=== PATIENT | male | born 1955 | race Caucasian/White ===

== ENCOUNTER → 2019-04-28 07:57 | Outpatient (REF) | payer OTHER, SELFPAY | LOC: ANHLAB 07:57 | PROVIDERS: PCP Internal Medicine; Visit Provider Nurse Practitioner Family | DX: C44.519 Basal cell carcinoma of skin of other part of trunk (principal) | CPT/HCPCS: 88305; 88331 ==

== ENCOUNTER 2020-04-17 12:08 | Outpatient (CLI) | payer OTHER, SELFPAY | END 2020-04-17 12:09 | disposition home or self-care (01) | LOC: ANHCOVIDVC 12:08 | PROVIDERS: PCP Internal Medicine; Visit Provider Internal Medicine | DX: Z23 Encounter for immunization (principal) | CPT/HCPCS: 0001A; 91300 ==

== ENCOUNTER 2020-05-08 11:45 | Outpatient (CLI) | payer OTHER, SELFPAY | END 2020-05-08 11:46 | disposition home or self-care (01) | LOC: ANHCOVIDVC 11:45 | PROVIDERS: PCP Internal Medicine; Visit Provider Internal Medicine | DX: Z23 Encounter for immunization (principal) | CPT/HCPCS: 0002A; 91300 ==

== ENCOUNTER 2021-08-23 07:46 | Outpatient (CLI) | payer OTHER, SELFPAY ==
--- NOTE | 2021-09-18 00:28 | WPDSLEEPSTUD ---
Sleep Study Date of Study: 08/23/21 Ordering Provider: Sarah Madrigal MD Interpreting Physician: Bobbi Villarreal DO Sleep Study Type: Split Polysomnogram Height: 1.75 m Weight: 122.47 kg Body Mass Index: 39.9 Neck Circumference (inches): 19 [place]: 17 Reason for Sleep Study The patient was diagnosed with KARL in 2002. He was prescribed CPAP and supplemental oxygen. He stopped using both within 3 months. He had a repeat study in 2016. 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 the patient occasionally awakens from sleep short of breath. He denies awakening at night with heartburn, belching or cough. He frequently snores loud enough that others complain. He occasionally has trouble sleeping when he has a cold. He occasionally wakes up gasping for air throughout the night. He frequently has breathing problems at night observed by himself or others. He rarely sweats excessively at night. He rarely has heart palpitations or irregular heartbeats during the night. He occasionally falls asleep during the day but rarely falls asleep while driving. He denies sleep paralysis and cataplexy. He occasionally has trouble at school or work due to sleepiness. He constantly experiences vivid dreamlike scenes upon awakening or falling asleep. He frequently feels afraid of going to sleep. He constantly has nightmares. He constantly remembers his dreams. He occasionally has thoughts racing through his mind. He occasionally feels sad or depressed. He denies having anxiety. He denies having muscular tension. He frequently notices parts of his body jerk. He frequently kicks during the night. He frequently has crawling and aching feelings in his legs and occasionally has leg pain during the night. He denies grinding his teeth during sleep and awakening with morning jaw pain. He is occasionally bothered by pain during the day and occasionally awakened by pain during the night. He constantly wakes up feeling stiff in the morning. He rarely wakes up with sore achy muscles. He occasionally wakes up with pain in the neck, spine and other joints. He goes to bed at midnight on weekdays and at 1:00 a.m. on the weekends. That amount of time it takes for him to fall asleep is variable. He wakes up 6-12 times throughout the night to urinate. The amount of time it takes him to fall back asleep is variable. He wakes up between 6-8 a.m. on weekdays and between 7-10 a.m. on the weekends. He typically gets 5 hours of sleep per night. He does not stay in bed very long after waking up the morning. He currently lives with his , son and his son's girlfriend. He does not consume any caffeinated beverages within 2 hours of bedtime. He does not engage in physical exercise before bedtime. He will read and watch television before falling asleep. He will take naps in the afternoon or the evening and they are refreshing. He drinks 3 caffeinated beverages per day. He will occasionally drink alcohol on weekends. He denies tobacco and recreational drug use. [facility] Past Medical History Medical History (Updated 09/18/21 @ 18:10 by Bobbi Villarreal DO) Chronic atrial fibrillation Chronic CHF Chronic pain Depression Essential (primary) hypertension Gout H/O atrial fibrillation without current medication History of arthritis History of gout History of hypertension History of kidney stones Sleep apnea in adult Family History Family History Mother Chronic kidney disease Father Coronary artery disease Coronary artery disease involving bypass graft of transplanted heart Social History Social History S
[2021-09-18 18:12] VITALS: BMI 39.9
== END 2021-08-24 06:41 | disposition home or self-care (01) ==
LOC: ANHCSM 07:47
PROVIDERS: PCP Family Medicine; Visit Provider Internal Medicine Critical Care Medicine
DX: G47.39 Other sleep apnea (principal); I48.92 Unspecified atrial flutter
CPT/HCPCS: 95811

== ENCOUNTER 2022-04-30 08:00 | Outpatient (NON) | payer OTHER, SELFPAY | END 2022-04-30 08:01 | disposition home or self-care (01) | PROVIDERS: PCP Family Medicine; Visit Provider Nurse Practitioner | DX: C44.41 Basal cell carcinoma of skin of scalp and neck (principal) | CPT/HCPCS: 88305 ==

== ENCOUNTER 2022-05-27 13:35 | Outpatient (NON) | payer OTHER, SELFPAY | END 2022-05-27 13:36 | disposition home or self-care (01) | LOC: ANHLAB 13:35 | PROVIDERS: PCP Family Medicine; Visit Provider Nurse Practitioner | DX: C44.41 Basal cell carcinoma of skin of scalp and neck (principal) | CPT/HCPCS: 88305; 88331 ==

== ENCOUNTER 2022-10-13 22:45 | Inpatient (IN) | payer OTHER, SELFPAY ==
--- NOTE | ~2022-10-13 | XR_ITS ---
EXAMINATION: XR foot LT min 3V DATE: 10/14/2022 01:47 INDICATION: Left foot cellulitis. TECHNIQUE: 3 views of left foot were obtained. COMPARISON: None. FINDINGS: Bone alignment is normal. No fracture. There is mild osteoarthritis of first metatarsophala ngeal joint and some of the interphalangeal joints and midfoot joints. There is an enthesophyte at po sterior aspect of calcaneal tuberosity. There is an 8 mm radiopaque foreign body plantar to second pr oximal phalanx. IMPRESSION: 1. 8 mm radiopaque foreign body plantar to second proximal phalanx. 2. No evidence of osteomyelitis. Reviewed, dictated and finalized at location E.
--- NOTE | ~2022-10-13 | XR_ITS ---
EXAMINATION: XR chest 1V portable Exam Date/Time: 10/16/2022 14:00 CDT HISTORY: shortness of breath, HX CHF Comparison: 10/14/2022. RESULT: Lines, tubes, and devices: None. Lungs and pleura: Mild diffuse reticular opacities with indistinct vessels. Patchy bibasilar subsegm ental airspace disease and groundglass opacities, worse in the left lower lung. Cardiomediastinal silhouette: Stable. Other: No acute osseous or upper abdominal finding. IMPRESSION: Pulmonary opacities may reflect moderate pulmonary edema versus mild edema with bibasilar pulmonary i nfection. Reviewed, dictated and finalized at location K. IMPRESSION: Pulmonary opacities may reflect moderate pulmonary edema versus mild edema with bibasilar pulmonary infection.
--- NOTE | ~2022-10-13 | XR_ITS ---
EXAM: XR toe 2nd LT min 2V DATE: 10/21/2022 21:48 HISTORY: rule out broken toe Lt 2nd toe; stubbed toe this P.M. . COMPARISON: 10/14/2022. FINDINGS: Decreased mineralization. No fracture or dislocation. No lytic or blastic lesion. Scattere d degenerative changes. No erosion or periosteal change. Soft tissues within normal limits. IMPRESSION: No acute osseous finding in the left second toe. Reviewed, dictated and finalized at location K.
--- NOTE | ~2022-10-13 | XR_ITS ---
EXAMINATION: XR chest 1V portable INDICATION: Chest pain TECHNIQUE: Portable AP chest at 0100 hours COMPARISON: None available FINDINGS: The lungs are free of acute opacities. No pleural effusion or pneumothorax. Cardiomegaly is noted. IMPRESSION: 1. Cardiomegaly. Reviewed, dictated and finalized at location A. IMPRESSION: 1. Cardiomegaly.
--- NOTE | ~2022-10-13 | US_ITS ---
EXAMINATION: US renal BI DATE: 10/17/2022 14:36 INDICATION: Acute kidney injury TECHNIQUE: Multiple grayscale and Doppler ultrasound images of the kidneys were obtained. COMPARISON: None. FINDINGS: The right kidney measures 12.7 x 6.8 x 6.2 cm and contains a 1.9 cm cyst. The left kidney m easures 12.9 x 5.9 x 5.3 cm. The kidneys demonstrate multiple tiny hyperechoic foci which could refle ct stones. There is normal parenchymal echogenicity. There is no hydronephrosis. The bladder is gurwinder l. A 2.7 cm cyst is noted in the liver. IMPRESSION: 1. Possible stones of the kidneys without hydronephrosis. Reviewed, dictated and finalized at location L.
--- NOTE | ~2022-10-13 | MR_ITS ---
MRI of the left foot Clinical history: Complex infection TECHNIQUE: Axial T1-weighted, T2 fat-sat, and T1 fat-sat images, sagittal T1-weighted and STIR images , and coronal T2 fat-sat and T1-weighted images were performed. Following intravenous administration of 20 cc MultiHance gadolinium, T1-weighted fat-sat imaging was performed in the axial, coronal, and sagittal planes. Findings: Bone marrow signals are preserved. No evidence for osteomyelitis. No fracture or bone marro w edema seen. There is mild degenerative change at the interphalangeal joint of the great toe. No sig nificant joint effusion identified in the foot. Flexor and extensor tendons are intact. There is prominent enhancing soft tissue edema with laceratio n/ulcer/sinus tract at the plantar aspect of the foot at the second proximal phalangeal region (coron al postcontrast images 37-41). There is mild nonspecific dorsal subcutaneous soft tissue edema of the foot.. IMPRESSION: Soft tissue infection with associated ulcer/laceration/draining abscess at the plantar aspect of the foot at the region of the second proximal phalanx. No evidence for osteomyelitis. Dorsal nonspecific subcutaneous soft tissue edema of the foot. Reviewed, dictated and finalized at [facility].
--- NOTE | ~2022-10-13 | CT_ITS ---
EXAMINATION: CT foot LT w con DATE: 10/14/2022 03:56 INDICATION: Left foot cellulitis and swelling. TECHNIQUE: Computed tomography (CT) of the left foot was performed with 100 mL Omnipaque 350 intraven ous contrast. Automated exposure control and iterative reconstruction technique were employed. The do se-length product was 413.87 mGy-cm. COMPARISON: Left foot radiographs 10/14/2022 FINDINGS: Bone alignment is normal. No fracture. There is mild osteoarthritis of first metatarsophala ngeal joint and some of the interphalangeal joints and midfoot joints. There is an enthesophyte at th e posterior aspect of calcaneal tuberosity. There is an 8 mm radiopaque foreign body plantar to the s econd proximal phalanx. There is soft tissue swelling of the foot with a dorsal predominance. There i s severe fatty atrophy of the musculature of the foot. IMPRESSION: 1. 8 mm radiopaque foreign body plantar to second proximal phalanx. 2. No evidence of osteomyelitis. Reviewed, dictated and finalized at location E.
[2022-10-13 22:56] VITALS: BP 148/68; PULSE 76; RESP 18; TEMP 36.4; O2SAT 98
[2022-10-13 23:13] LABS: Basophils Percent Auto 0.2 % (0.2-1.2); Eosinophils Absolute Auto 0.2 K/mm3 (0-0.3); Eosinophils Percent Auto 1.1 % (0-4.4); Hematocrit 37.1 % (42.0-52.0); Hemoglobin 12.3 g/dL (14.0-18.0); Immature Granulocyte Absolute 0.13 K/mm3 (0.00-0.031); Immature Granulocyte Percent A 0.8 % (0-0.5); Lymphocytes Absolute Auto 0.98 K/mm3 (0.9-3.2); Lymphocytes Percent Auto 5.9 % (18.3-44.2); Mean Corpuscular HGB Conc 33.2 g/dl (32-36); Mean Corpuscular Hemoglobin 30.3 pg (26-34); Mean Corpuscular Volume 91.4 fl (80-100); Mean Platelet Volume 10.9 fl (7.4-10.4); Monocytes Absolute Auto 1.3 K/mm3 (0.1-0.6); Monocytes Percent Auto 7.7 % (2.6-8.5); Neutrophils Percent Auto 84.3 % (45.5-73.1); Platelet Count Result 142 k/mm3 (150-375); Red Blood Count 4.06 M/mm3 (4.6-6.20); Red Cell Distribution Width 13.5 % (11.5-14.5); White Blood Count 16.6 K/mm3 (4.5-10.0)
[2022-10-13 23:22] LABS: Alanine Aminotransferase 19 U/L (6-50); Albumin Level 4.1 g/dL (3.5-5.1); Alkaline Phosphatase 88 U/L (38-126); Anion Gap 10 mmol/L (8-16); Aspartate Amino Transferase 20 U/L (17-59); Bilirubin,Total 0.7 mg/dL (0.2-1.3); Blood Urea Nitrogen 28 mg/dL (9-20); Calcium 8.8 mg/dL (8.4-10.2); Carbon Dioxide 28 mmol/L (22-30); Chloride 97 mmol/L (98-107); Estimated CRCL calculation 65 ml/min; Estimated Glomerular Filt Rate 56; Glucose 130 mg/dL (65-110); Potassium 4.3 mmol/L (3.4-5.0); Sodium 135 mmol/L (137-145)
[2022-10-14] VITALS (10 sets, daily range): BP systolic 112–127; BP diastolic 61–79; PULSE 69–81; RESP 16–21; TEMP 36.2–36.9; O2SAT 92–97; BMI 43.4
--- NOTE | 2022-10-14 00:04 | ECG_ITS ---
Measurements Intervals Garrett Rate: 71 P: 64 SD: 218 QRS: -13 QRSD: 109 T: 48 QT: 398 QTc: 434 Interpretive Statements SINUS RHYTHM WITH FIRST DEGREE AV BLOCK DELAYED PRECORDIAL R/S TRANSITION BORDERLINE T WAVE ABNORMALITY- ANTERIOR LEADS BORDERLINE ECG NO PREVIOUS ECG AVAILABLE FOR COMPARISON Electronically Signed On 10-14-2022 8:14:10 CDT by Gómez Lopez D.O.
--- NOTE | 2022-10-14 00:12 | ED.GENADULT ---
HPI - General Adult General Chief complaint: Extremity Problem,Nontraumatic Stated complaint: Infection r/o cellulitis L foot Time Seen by Provider: 10/13/22 23:30 History of Present Illness HPI narrative: this is a 66-year-old male presenting with a foot infection. Patient says that he cut the bottom of his foot 4 days ago. The day afterwards he went fishing in the river. He had significant exposure to his foot from the river water. After that he developed pain swelling, foul odor and purulent discharge from his left foot. He also has increased redness and swelling over his lower calf. Patient denies fever chills nausea vomiting diarrhea. He has had cellulitis in the past. Not diabetic Related Data Home Medications Medication Instructions Recorded Confirmed sotalol 80 mg tablet 80 mg PO DAILY 12/30/18 05/28/22 tranylcypromine 10 mg tablet 10 mg PO TID 02/13/19 05/28/22 apixaban 5 mg tablet (Eliquis) 5 mg PO BID 11/06/20 05/28/22 losartan 100 mg tablet 100 mg PO DAILY 03/25/22 05/28/22 nifedipine 30 mg tablet,extended 30 mg PO TID 03/25/22 05/28/22 release 24 hr Allergies Allergy/AdvReac Type Severity Reaction Status Date / Time No Known Allergies Allergy Verified 10/13/22 22:46 [facility] Past Medical History Medical History Chronic atrial fibrillation Chronic CHF Chronic pain Depression Essential (primary) hypertension Gout H/O atrial fibrillation without current medication History of arthritis History of gout History of hypertension History of kidney stones Restless legs syndrome (RLS) Sleep apnea in adult Family History Family History Mother Chronic kidney disease Father Coronary artery disease Coronary artery disease involving bypass graft of transplanted heart Social History Social History (Updated 07/17/22 @ 13:59 by ULICES Gonzalez) Smoking status: Never smoker Second hand tobacco smoke exposure: No Alcohol intake: former Drinks per week: 2 Substance use: never Substance use type: does not use Lack of Transportation: No Lack of Food: Never True Current Housing: I Have Housing Concerned About Future Housing: No Difficulty Paying Gas/Electric Bills: No Difficulty Paying for Meds: No Currently Unemployed: No Education: Master's Degree or Higher Difficulty w/ Childcare or Family Care: No Living arrangements: with family Occupation/Education: retired Gender identity (if verbalized by the patient): Male Exam Narrative: APPEARANCE: No apparent distress. Head: atraumatic. EYES: EOMI, NOSE: Atraumatic NECK: Trachea midline RESPIRATORY: No increased rate of breathing, CTAB CARDIOVASCULAR: RRR, ABDOMINAL: Non-distended MUSCULOSKELETAl: No obvious deformities NEURO: Alert. Moving 4/4 extremities SKIN:: left lower extremity showed swelling and drainage on the plantar at the base of the 2nd toe. Skin is edematous but no obvious fluctuance. Infection spreads upward to the dorsum of the foot. Mild erythema warmth of the left calf over lipodermatosclerosis. PSYCHIATRIC: Normal affect Course Vital Signs Vital signs: Vital Signs Temperature 97.6 F 10/13/22 22:56 Pulse Rate 76 10/13/22 22:56 Respiratory Rate 18 10/13/22 22:56 Blood Pressure 148/68 H 10/13/22 22:56 Pulse Oximetry 98 10/13/22 22:56 Temperature 98.5 F 10/14/22 02:57 Pulse Rate 73 10/14/22 02:57 Respiratory Rate 20 10/14/22 02:57 Blood Pressure 112/66 10/14/22 02:57 Pulse Oximetry 92 10/14/22 02:57 Procedures Foreign Body Removal Foreign Body #1: Foreign Body Removal Date: 10/14/22 Time Out Performed: yes Site: left Description of foreign body: bead (Broken beed) Technique: manual removal and removal with forceps Confirmed by:: direct visualization Complications: no
[2022-10-14] MEDS: SODIUM CHLORIDE 0.9% IV 1,000 ML 999 ML IV CONT (00:47)
[2022-10-14] MEDS: PIPERACILLN/TAZ 3.375GM/NS50ML 3.375 GM/50 ML BAG IVPB ×4 (00:48→17:32)
[2022-10-14 00:54] LABS: Magnesium 2.3 mg/dL (1.6-2.3)
[2022-10-14 00:58] LABS: INR 1.2; Partial Thromboplastin Time 39.9 SECONDS (22.3-36.8); Prothrombin Time 16.2 Seconds (11.1-14.7)
[2022-10-14 01:06] LABS: NT Pro B Type Natriuretic Pept 405 pg/mL (19.9-100); Troponin I < 0.012 ng/mL (0.000-0.034)
[2022-10-14 01:17] LABS: Influenza A QL RT-PCR Negative (Negative); Influenza B QL RT-PCR Negative (Negative); RSV RNA, RT-PCR Negative (Negative); SARS-CoV-2 RNA PCR Negative (Negative)
[2022-10-14 01:56] LABS: Appearance Urine Clear (Clear); Bacteria Urine None Seen /hpf; Bilirubin Urine Negative (Negative); Blood Urine Negative (Negative); Color Urine Yellow (Yellow); Glucose Urine UA Negative (Negative); Ketones Urine Trace mg/dL (Negative); Leukocyte Esterase Ur Negative LEU/UL (Negative); Nitrate Urine Negative (Negative); Protein Urine 1+ mg/dL (Negative); RBC Urine 0-2 /hpf (0-2); Specific Grav Ur 1.019 (1.001-1.035); Squamous Epithelial Cell Urine None seen /hpf (Few); Urobilinogen Urine 0.2 mg/dL (<2.0); WBC Urine 0-5 /hpf
[2022-10-14 02:42] LABS: Add Urine Microscopic? YES
[2022-10-14 03:52] LABS: Troponin I < 0.012 ng/mL (0.000-0.034)
--- NOTE | 2022-10-14 06:08 | ADMGEN ---
This patient, Tremayne Garcia, was admitted to 3 [facility] Surg Room 313-01 at 0550. Patient/family oriented to hospital policies and general routines including ID bracelet, bed and alarms, visiting hours, pain management, procedures, bathroom and other care routines, personal items, smoking policy, room service/diet, and visiting hours. Information on how to activate the Rapid Response Team has been discussed. Patient/Family are encouraged to report perceived risks to care and to ask questions if they do not understand what they are told or what they should do.
--- NOTE | 2022-10-14 09:51 | PM.IMHP ---
H&P: HPI History of Present Illness Date/Time: 10/14/22 05:20 Chief Complaint: Foot infection Narrative: 66-year-old male with a past medical history of pre diabetes, chronic lymphedema, peripheral neuropathy of nonspecific origin, morbid obesity, obstructive sleep apnea, essential hypertension, gout and restless leg syndrome who presented to the ER from home due to left foot infection. The patient reports that if she gets cellulitis of his lymphedema is usually in the right leg. However over the last couple of weeks he has noticed increasing bilateral lower extremity swelling. He noticed a spot on the bottom of his left foot that his thought was a blood blister. In hindsight that this was probably a piece a glass that the patient had stepped on. The patient reported that for the last 5 days he has been having intermittent subjective fevers and chills. He has also noticed some blood draining from his foot. He initially thought it was some spillage medial 1000 the for but then realized she had something leaking from his foot. On that same day he also noticed some weeping from his left lower extremity as well. He he reports that the fluid is serous but has a funny odor. He denies any significant pain to either area but attributes his lack of pain to his neuropathy. He compound it is issues by [place] and spent some time fishing and had his foot exposed to the elements and water in his Cro[place]. He denies any significant nausea or vomiting. He denies urinary symptoms. He reports he has been trying to lose weight and has been on Ozempic for this since April. He has went down from 209 and lb to 260 lb. Review of Systems Review of Systems: 12 systems were reviewed with pertinent positives and negatives per HPI. Except as documented in the HPI, all other systems were reviewed and are negative. [facility] Past Medical History Medical History (Updated 10/15/22 @ 06:46 by Yvonne Wilson DO) Chronic atrial fibrillation Chronic CHF Chronic pain Depression Essential (primary) hypertension Gout H/O atrial fibrillation without current medication History of arthritis History of gout History of hypertension History of kidney stones Macular degeneration Restless legs syndrome (RLS) Sleep apnea in adult Surgical History Surgical History (Updated 10/14/22 @ 10:03 by Yvonne Wilson DO) No significant past surgical history Family History Family History Mother Chronic kidney disease Father Coronary artery disease Coronary artery disease involving bypass graft of transplanted heart Social History Social History (Updated 10/14/22 @ 10:04 by Yvonne Wilson DO) Social History: 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 He holds 3 master's degrees. 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 Smoking status: Never smoker Second hand tobacco smoke exposure: No Alcohol intake: former Drinks per week: 2 Substance use: never Substance use type: does not use Lack of Transportation: No Lack of Food: Never True Current Housing: I Have Housing Concerned About Future Housing: No Difficulty Paying Gas/Electric Bills: No Difficulty Paying for Meds: No Currently Unemployed: No Education: Master's Degree or Higher Difficulty w/ Childcare or Family Care: No Living arrangements: with family Occupation/Education: retired Gender identity (if verbalized by the patient): Male Spiritual care concerns: No Meds Home Medications and Allergies Home Medications Medication Instructions Recorded Confirmed Type sotalol 80 mg tablet 80 mg PO DAILY 12/30/18 10/14/22 History tranylcypromine 10 mg tablet 10 mg PO TID 02/13/19 10/14/22 History apixaban 5 mg tablet (Eliquis) 5 mg PO BID 11/06/20 10/14/22 History allopurinol 100 mg tablet 100 mg PO DAILY #90 tabs 09/04/21
[2022-10-14 11:07] LABS: Anion Gap 6 mmol/L (8-16); Blood Urea Nitrogen 24 mg/dL (9-20); Calcium 8.3 mg/dL (8.4-10.2); Carbon Dioxide 28 mmol/L (22-30); Chloride 100 mmol/L (98-107); Estimated CRCL calculation 79 ml/min; Estimated Glomerular Filt Rate > 60; Glucose 149 mg/dL (65-110); Sodium 134 mmol/L (137-145)
--- NOTE | 2022-10-14 11:13 | PM.IMPN ---
Progress Note: A&P Assessment and Plan (1) Infected puncture wound of plantar aspect of foot: Code(s): S91.339A - Puncture wound without foreign body, unspecified foot, initial encounter; L08.9 - Local infection of the skin and subcutaneous tissue, unspecified Status: Acute Assessment and Plan: While initial puncture wound appears to be in the plantar aspect of the foot the infection extends through the full-thickness of the foot including the dorsal surface with drainage noted both plantar and dorsal aspects. General surgery consulted for possible OR for washout. (2) Foreign body foot/toe: Status: Acute Assessment and Plan: Initial object removed in ER. Foot appears to have significant swelling, concerned for pus accumulation. Surgery consulted. (3) Essential (primary) hypertension: Code(s): I10 - Essential (primary) hypertension Status: Acute Assessment and Plan: Blood pressure stable. Continue home medications. Blood pressure reviewed 10/14 (4) Prediabetes: Code(s): R73.03 - Prediabetes Status: Acute Assessment and Plan: Patient reports history of prediabetes, currently on semaglutide for weight loss. Add hemoglobin A1c and if greater than 6, initiate fingerstick glucose with correction insulin (5) Sleep apnea in adult: Code(s): G47.30 - Sleep apnea, unspecified Status: Acute Assessment and Plan: Use CPAP if patient wears at home Plan IV Zosyn and vancomycin, caution for acute kidney injury after 3-4 days of combined use or 4-7 days vancomycin only. Trend daily labs. Per discussion with ID pharmacy, do not need to add clindamycin or Flagyl at this time unless recommended by surgery diet: Heart healthy VTE prophylaxis: Krishan Coon on hold for surgery consult GI prophylaxis: Not indicated medication reconciliation: Completed by admitting provider, patient takes MAOI--caution with other medications ordered pain: Hydrocodone and oxycodone are home medications and ordered for pain levels 4-10 nausea: Compazine ordered p.r.n. code status: Full code Time Spent With Patient Time with patient: Greater than 35 minutes Subjective Date/time seen: 10/14/22 11:13 Interval history: This is a 66-year-old male patient who is admitted to the hospital for left foot infection. He reports he has been told he is prediabetic has been on semaglutide for weight loss that has only recently been initiated. He reports that he noticed a cut on the bottom of his foot for a while but not having a lot of pain with it. Subsequently, patient was fishing and exposed to dirty fresh water. Since then foot has started to swell with redness and tenderness going up the foot towards the ankle. Patient came to the emergency department when it started draining. In the ER he had imaging that showed retained radiopaque foreign body. ER physician was able to remove glass piece from foot. CT scan shows significant dorsal swelling. Physical exam reveals posterior and dorsal swelling with weeping from top and bottom of foot. Surgery consulted for possible OR for washout. Patient denies any fever chills. He denies any chest pain shortness a breath abdominal pain nausea vomiting constipation diarrhea or any other concerning symptoms. Review of Systems Review of Systems: All systems reviewed & are unremarkable except as noted in HPI and below Exam Narrative: GENERAL: Generally well appearing, alert and oriented, in no apparent distress. He is pleasant and conversant in full sentences. HEENT: Pupils are equally round and briskly reactive to light. Extraocular muscles are intact. Oral mucous membranes are moist without lesions. NECK: The patient has no noted JVD. No adenopathy is appreciated. CHEST/LUNGS: Lungs are clear bilaterally without rhonchi, rales, or wheezes. There is no subcutaneous air appreciated. There is no tenderness to the chest wall. HEART: The
[2022-10-14 11:15] LABS: Basophils Percent Auto 0.2 % (0.2-1.2); Eosinophils Absolute Auto 0.3 K/mm3 (0-0.3); Eosinophils Percent Auto 2.4 % (0-4.4); Hemoglobin 11.2 g/dL (14.0-18.0); Immature Granulocyte Absolute 0.05 K/mm3 (0.00-0.031); Immature Granulocyte Percent A 0.5 % (0-0.5); Lymphocytes Absolute Auto 0.78 K/mm3 (0.9-3.2); Lymphocytes Percent Auto 7.3 % (18.3-44.2); Mean Corpuscular Hemoglobin 29.6 pg (26-34); Mean Corpuscular Volume 92.3 fl (80-100); Mean Platelet Volume 11.3 fl (7.4-10.4); Monocytes Absolute Auto 0.8 K/mm3 (0.1-0.6); Monocytes Percent Auto 7.8 % (2.6-8.5); Neutrophils Absolute Auto 8.7 K/mm3 (1.3-6.7); Neutrophils Percent Auto 81.8 % (45.5-73.1); Platelet Count Result 118 k/mm3 (150-375); Red Blood Count 3.79 M/mm3 (4.6-6.20); Red Cell Distribution Width 13.7 % (11.5-14.5); White Blood Count 10.7 K/mm3 (4.5-10.0)
[2022-10-14] MEDS: LOSARTAN POTASSIUM 100 MG TABLET PO (11:59)
[2022-10-14] MEDS: FUROSEMIDE 20 MG TABLET PO (11:59)
[2022-10-14] MEDS: allopurinoL 100 MG TABLET PO (11:59)
[2022-10-14] MEDS: HYDROcodone/acetaminophen (*CRX) 10-325 MG TABLET 1.5 TAB PO (12:03)
[2022-10-14] MEDS: NIFEdipine 30 MG TAB.ER.24 PO ×2 (12:38→17:32)
[2022-10-14 16:18] LABS: Hemoglobin A1C 5.2 % (<5.7)
[2022-10-14] MEDS: oxyCODONE/ACETAMINOPHEN (*CRX) 10-325 MG TABLET 1 TAB PO (20:20)
[2022-10-14] MEDS: PRAMIPEXOLE 0.25 MG TABLET 0.75 MG PO (20:20)
[2022-10-15] VITALS (11 sets, daily range): BP systolic 127–151; BP diastolic 42–84; PULSE 65–90; RESP 16–22; TEMP 36.3–37.1; O2SAT 92–95
[2022-10-15] MEDS: PIPERACILLN/TAZ 3.375GM/NS50ML 3.375 GM/50 ML BAG IVPB ×4 (01:00→17:21)
[2022-10-15 06:29] LABS: Basophils Percent Auto 0.2 % (0.2-1.2); Eosinophils Absolute Auto 0.2 K/mm3 (0-0.3); Eosinophils Percent Auto 2.9 % (0-4.4); Hematocrit 35.5 % (42.0-52.0); Hemoglobin 11.5 g/dL (14.0-18.0); Immature Granulocyte Absolute 0.04 K/mm3 (0.00-0.031); Immature Granulocyte Percent A 0.5 % (0-0.5); Lymphocytes Percent Auto 8.7 % (18.3-44.2); Mean Corpuscular HGB Conc 32.4 g/dl (32-36); Mean Corpuscular Hemoglobin 30.1 pg (26-34); Mean Corpuscular Volume 92.9 fl (80-100); Mean Platelet Volume 10.6 fl (7.4-10.4); Monocytes Absolute Auto 0.7 K/mm3 (0.1-0.6); Monocytes Percent Auto 8.2 % (2.6-8.5); Neutrophils Absolute Auto 6.4 K/mm3 (1.3-6.7); Neutrophils Percent Auto 79.5 % (45.5-73.1); Platelet Count Result 138 k/mm3 (150-375); Red Blood Count 3.82 M/mm3 (4.6-6.20); Red Cell Distribution Width 13.2 % (11.5-14.5)
[2022-10-15 06:40] LABS: Anion Gap 5 mmol/L (8-16); Blood Urea Nitrogen 18 mg/dL (9-20); Calcium 8.6 mg/dL (8.4-10.2); Carbon Dioxide 27 mmol/L (22-30); Chloride 104 mmol/L (98-107); Estimated CRCL calculation 96 ml/min; Estimated Glomerular Filt Rate > 60; Glucose 114 mg/dL (65-110); Potassium 4.2 mmol/L (3.4-5.0); Sodium 136 mmol/L (137-145)
[2022-10-15] MEDS: HYDROcodone/acetaminophen (*CRX) 10-325 MG TABLET 1.5 TAB PO ×2 (08:45→21:20)
[2022-10-15] MEDS: SOTALOL HCL 80 MG TABLET PO (08:47)
[2022-10-15] MEDS: FUROSEMIDE 20 MG TABLET PO (08:49)
[2022-10-15] MEDS: allopurinoL 100 MG TABLET PO (08:49)
[2022-10-15] MEDS: LOSARTAN POTASSIUM 100 MG TABLET PO (08:49)
[2022-10-15] MEDS: NIFEdipine 30 MG TAB.ER.24 PO ×3 (08:49→16:48)
--- NOTE | 2022-10-15 13:15 | PM.CNGS ---
Assessment and Plan Assessment and plan (1) Infected puncture wound of plantar aspect of foot: Qualifiers: Encounter type: initial encounter Laterality: left Qualified Code(s): S91.332A - Puncture wound without foreign body, left foot, initial encounter; L08.9 - Local infection of the skin and subcutaneous tissue, unspecified Code(s): S91.339A - Puncture wound without foreign body, unspecified foot, initial encounter; L08.9 - Local infection of the skin and subcutaneous tissue, unspecified Status: Acute Assessment and Plan: Infected left foot wound with cellulitis. Foreign body has been removed. This is open and draining. No indication for any surgical intervention at this time. Cellulitis is already improving. Will initiate local wound care with silver gel dressing changes and continue to monitor. Elevate left lower extremity. Continue IV antibiotics. (2) Foreign body foot/toe: Status: Acute Assessment and Plan: Removed in ER. (3) Cellulitis: Code(s): L03.90 - Cellulitis, unspecified Status: Acute Assessment and Plan: Improving, continue IV antibiotics. (4) Atrial flutter: Code(s): I48.92 - Unspecified atrial flutter Status: Acute (5) Anticoagulant long-term use: Code(s): Z79.01 - intermediate (current) use of anticoagulants Status: Acute Assessment and Plan: Okay to resume Eliquis from a surgical standpoint. (6) Prediabetes: Code(s): R73.03 - Prediabetes Status: Acute (7) Sleep apnea in adult: Code(s): G47.30 - Sleep apnea, unspecified Status: Acute (8) Obesity, morbid, BMI 40.0-49.9: Code(s): E66.01 - Morbid (severe) obesity due to excess calories Status: Acute Plan I have discussed the patient's case and plan of care with Dr. العلي. Thank you for allowing us to see the patient in consultation and we will continue to follow along with you. History of Present Illness Consult details Consult date: 10/15/22 Reason for consult: other (Left foot wound) Requesting physician: Carlin Sampson APRN Narrative: This is a 66-year-old man with a history pre diabetes, lymphedema, atrial fibrillation on Eliquis, and sleep apnea, who presented to the ER 2 nights ago with complaints of left foot redness, swelling, and a left foot wound. His initially noticed what she thought was a blood blister on the plantar aspect of his foot near the second metatarsal. He then developed some drainage from this area, but had not paid attention to how it progressed. He thought he potentially cut his foot on something. This past weekend, he [place] with open shoes and was exposed to the water. Over the past few days, he developed your theme, swelling, and noticed a foul odor from the wound in his left foot. He presented to the ER for evaluation. [place] [address]. Glucose was in the 130s and his hemoglobin A1c was checked and found to be 5.2. He had an x-ray of the left foot that showed an 8 mm radiopaque foreign body plantar to second proximal phalanx, no evidence of osteomyelitis. CT of the left foot also showed an 8 mm radiopaque foreign body plantar to second proximal phalanx with no evidence of osteomyelitis. The foreign body was successfully removed in the ER. He was admitted and started on IV Zosyn and vancomycin. Our service has now been consulted for surgical evaluation of the left foot wound. Review of Systems Review of Systems: All systems reviewed & are unremarkable except as noted in HPI and below PMFSH Past Medical History Medical History Chronic atrial fibrillation Chronic CHF Chronic pain Depression Essential (primary) hypertension Gout H/O atrial fibrillation without current medication History of arthritis History of gout History of hypertension History of kidney stones Macular dege
--- NOTE | 2022-10-15 14:00 | PM.IMPN ---
Progress Note: A&P Assessment and Plan (1) Infected puncture wound of plantar aspect of foot: Qualifiers: Encounter type: initial encounter Laterality: left Qualified Code(s): S91.332A - Puncture wound without foreign body, left foot, initial encounter; L08.9 - Local infection of the skin and subcutaneous tissue, unspecified Code(s): S91.339A - Puncture wound without foreign body, unspecified foot, initial encounter; L08.9 - Local infection of the skin and subcutaneous tissue, unspecified Status: Acute Assessment and Plan: While initial puncture wound appears to be in the plantar aspect of the foot the infection extends through the full-thickness of the foot including the dorsal surface with drainage noted both plantar and dorsal aspects. General surgery consulted for possible OR for washout. (2) Foreign body foot/toe: Status: Acute Assessment and Plan: Initial object removed in ER. Foot appears to have significant swelling, concerned for pus accumulation. Surgery consulted. (3) Essential (primary) hypertension: Code(s): I10 - Essential (primary) hypertension Status: Acute Assessment and Plan: Blood pressure stable. Continue home medications. Blood pressure reviewed 10/15 (4) Prediabetes: Code(s): R73.03 - Prediabetes Status: Acute Assessment and Plan: Patient reports history of prediabetes, currently on semaglutide for weight loss. 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 Trend daily labs. Per discussion with ID pharmacy, do not need to add clindamycin or Flagyl at this time unless recommended by surgery diet: Heart healthy VTE prophylaxis: SCDs, Eliquis on hold for surgery consult GI prophylaxis: Not indicated medication reconciliation: Completed by admitting provider, patient takes MAOI--caution with other medications ordered pain: Hydrocodone and oxycodone are home medications and ordered for pain levels 4-10 nausea: Compazine ordered p.r.n. code status: Full code Time Spent With Patient Time with patient: 25 - 35 minutes Subjective Date/time seen: 10/15/22 08:00 Interval history: 10/14: This is a 66-year-old male patient who is admitted to the hospital for left foot infection. He reports he has been told he is prediabetic has been on semaglutide for weight loss that has only recently been initiated. He reports that he noticed a cut on the bottom of his foot for a while but not having a lot of pain with it. Subsequently, patient was fishing and exposed to dirty fresh water. Since then foot has started to swell with redness and tenderness going up the foot towards the ankle. Patient came to the emergency department when it started draining. In the ER he had imaging that showed retained radiopaque foreign body. ER physician was able to remove glass piece from foot. CT scan shows significant dorsal swelling. Physical exam reveals posterior and dorsal swelling with weeping from top and bottom of foot. Surgery consulted for possible OR for washout. Patient denies any fever chills. He denies any chest pain shortness a breath abdominal pain nausea vomiting constipation diarrhea or any other concerning symp
[2022-10-15] MEDS: oxyCODONE/ACETAMINOPHEN (*CRX) 10-325 MG TABLET 1 TAB PO (17:07)
--- NOTE | 2022-10-15 20:13 | PHAR ---
RX [id number] [facility] NAME: PARNATE INGREDIENTS: TRANYLCYPROMINE -- 10 MG COLOR: THAIS-RED SHAPE: UPPER [place] IMPRINT: PARNATE SB FORM: ORAL TABLET 1 TABLET THREE TIME A DAY
[2022-10-15 20:15] LABS: Vancomycin Trough 14.1 ug/mL (10.0-20.0)
[2022-10-15] MEDS: PRAMIPEXOLE 0.25 MG TABLET 0.75 MG PO (21:07)
[2022-10-16] VITALS (12 sets, daily range): BP systolic 127–139; BP diastolic 50–73; PULSE 60–95; RESP 18–20; TEMP 36.3–36.7; O2SAT 88–98
[2022-10-16] MEDS: PIPERACILLN/TAZ 3.375GM/NS50ML 3.375 GM/50 ML BAG IVPB ×5 (00:48→23:09)
[2022-10-16 06:18] LABS: Basophils Percent Auto 0.4 % (0.2-1.2); Eosinophils Absolute Auto 0.2 K/mm3 (0-0.3); Eosinophils Percent Auto 2.4 % (0-4.4); Hematocrit 35.4 % (42.0-52.0); Hemoglobin 11.3 g/dL (14.0-18.0); Immature Granulocyte Absolute 0.06 K/mm3 (0.00-0.031); Immature Granulocyte Percent A 0.7 % (0-0.5); Lymphocytes Absolute Auto 0.78 K/mm3 (0.9-3.2); Lymphocytes Percent Auto 9.3 % (18.3-44.2); Mean Corpuscular HGB Conc 31.9 g/dl (32-36); Mean Corpuscular Hemoglobin 29.3 pg (26-34); Mean Corpuscular Volume 91.7 fl (80-100); Mean Platelet Volume 10.3 fl (7.4-10.4); Monocytes Absolute Auto 0.9 K/mm3 (0.1-0.6); Monocytes Percent Auto 10.4 % (2.6-8.5); Neutrophils Absolute Auto 6.5 K/mm3 (1.3-6.7); Neutrophils Percent Auto 76.8 % (45.5-73.1); Platelet Count Result 160 k/mm3 (150-375); Red Blood Count 3.86 M/mm3 (4.6-6.20); White Blood Count 8.4 K/mm3 (4.5-10.0)
[2022-10-16 06:30] LABS: Anion Gap 9 mmol/L (8-16); Blood Urea Nitrogen 14 mg/dL (9-20); Calcium 8.4 mg/dL (8.4-10.2); Carbon Dioxide 23 mmol/L (22-30); Chloride 101 mmol/L (98-107); Estimated CRCL calculation 96 ml/min; Estimated Glomerular Filt Rate > 60; Glucose 134 mg/dL (65-110); Potassium 3.9 mmol/L (3.4-5.0); Sodium 133 mmol/L (137-145)
[2022-10-16] MEDS: SOTALOL HCL 80 MG TABLET PO (09:25)
[2022-10-16] MEDS: FUROSEMIDE 20 MG TABLET PO (09:25)
[2022-10-16] MEDS: allopurinoL 100 MG TABLET PO (09:25)
[2022-10-16] MEDS: NIFEdipine 30 MG TAB.ER.24 PO ×3 (09:26→16:47)
[2022-10-16] MEDS: APIXABAN 5 MG TABLET PO ×2 (09:26→16:47)
[2022-10-16] MEDS: LOSARTAN POTASSIUM 100 MG TABLET PO (09:26)
[2022-10-16] MEDS: HYDROcodone/acetaminophen (*CRX) 10-325 MG TABLET 1.5 TAB PO ×2 (09:40→20:10)
[2022-10-16] MEDS: SILVERGEL (ELTA) 45 ML 1 APPLIC TOPICAL (09:41)
--- NOTE | 2022-10-16 11:20 | PM.IMPN ---
Progress Note: A&P Assessment and Plan (1) Infected puncture wound of plantar aspect of foot: Qualifiers: Encounter type: initial encounter Laterality: left Qualified Code(s): S91.332A - Puncture wound without foreign body, left foot, initial encounter; L08.9 - Local infection of the skin and subcutaneous tissue, unspecified Code(s): S91.339A - Puncture wound without foreign body, unspecified foot, initial encounter; L08.9 - Local infection of the skin and subcutaneous tissue, unspecified Status: Acute Assessment and Plan: Blistering of the skin is worse today. Requested that surgery re-evaluate patient for possible washout (2) Chronic CHF: Code(s): I50.9 - Heart failure, unspecified Status: Acute Assessment and Plan: Acute exacerbation of chronic CHF due to frequent IV antibiotics. Ordered chest x-ray and dose of IV furosemide. Oxygen in place. (3) Essential (primary) hypertension: Code(s): I10 - Essential (primary) hypertension Status: Acute Assessment and Plan: Blood pressure stable. Continue home medications. 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 Foot appears to have significant swelling, concerned for pus accumulation. Surgery consulted. (8) Prediabetes: Code(s): R73.03 - Prediabetes Status: Acute Assessment and Plan: hemoglobin A1c 5.2. Plan IV Zosyn and vancomycin, caution for acute kidney injury after 3-4 days of combined use or 4-7 days vancomycin only. Trend daily labs. Per discussion with ID pharmacy, do not need to add clindamycin or Flagyl at this time unless recommended by surgery diet: Heart healthy VTE prophylaxis: SCDs, Eliquis on hold for surgery consult GI prophylaxis: Not indicated medication reconciliation: Completed by admitting provider, patient takes MAOI--caution with other medications ordered pain: Hydrocodone and oxycodone are home medications and ordered for pain levels 4-10 nausea: Compazine ordered p.r.n. code status: Full code Time Spent With Patient Time with patient: 25 - 35 minutes Subjective Date/time seen: 10/16/22 11:20 Interval history: patient reports having some shortness of breath that started overnight. He states that previously when he has received IV antibiotics for lower extremity infections he has required diuretics to remove some fluid. Patient is on 20 mg Lasix orally. Oxygen had to be applied. Saturations were in the upper 80s per nursing staff. Will order IV Lasix x1 and chest x-ray. Discussed case with surgery FLOW MANAGER who will re-evaluate patient today has the foot appears to have more swelling. She will attempt to collect wound culture. Review of Systems Review of Systems: All systems reviewed & are unremarkable except as noted in HPI and below Exam Narrative: GENERAL: Generally well appearing, alert and oriented, in no apparent distress. Seated upright in a chair with legs elevated and oxygen in place HEENT: Pupils are equally round and briskly reactive to light. Extraocular muscles are intact. Oral mucous membranes are moist without lesions. NECK: The patient has no noted JVD. No adenopath
[2022-10-16] MEDS: FUROSEMIDE INJ 40 MG/4 ML VIAL IV PUSH (14:13)
--- NOTE | 2022-10-16 15:45 | PM.PNGS ---
Progress Note: A&P Assessment and Plan (1) Infected puncture wound of plantar aspect of foot: Qualifiers: Encounter type: initial encounter Laterality: left Qualified Code(s): S91.332A - Puncture wound without foreign body, left foot, initial encounter; L08.9 - Local infection of the skin and subcutaneous tissue, unspecified Code(s): S91.339A - Puncture wound without foreign body, unspecified foot, initial encounter; L08.9 - Local infection of the skin and subcutaneous tissue, unspecified Status: Acute Assessment and Plan: cont local wound care and abx Subjective Subjective Date/Time Seen: 10/16/22 15:45 Interval history: feels ok, still c pain in foot but improved Review of Systems Review of Systems: All systems reviewed & are unremarkable except as noted in HPI and below Exam Const: General: cooperative, comfortable and no acute distress Resp: Auscultation: clear to auscultation bilaterally Cardio: Rate: regular rate Rhythm: regular rhythm GI: Inspection: normal to inspection Extrem: Other: foot - still c sloughing, small amount of purulent drainage, cellulitis minimally improved Objective Data Vital Signs Vital Signs: Vital Signs - 24 hr 10/15/22 16:00 10/15/22 20:00 10/15/22 22:00 Temperature 37.1 C Pulse Rate 70 74 Respiratory Rate 16 Blood Pressure 138/61 Pulse Oximetry 92 Oxygen Delivery Room Air Oxygen Flow Rate 10/15/22 22:00 10/15/22 20:00 10/16/22 00:00 Temperature Pulse Rate 70 76 Respiratory Rate Blood Pressure Pulse Oximetry Oxygen Delivery CPAP Oxygen Flow Rate 10/16/22 04:00 10/16/22 06:00 10/16/22 09:25 Temperature 36.3 C L Pulse Rate 68 95 80 Respiratory Rate 20 Blood Pressure 139/73 Pulse Oximetry 98 Oxygen Delivery Oxygen Flow Rate 10/16/22 09:47 10/16/22 09:20 10/16/22 09:30 Temperature Pulse Rate Respiratory Rate Blood Pressure Pulse Oximetry 93 88 L 94 Oxygen Delivery Nasal Cannula Room Air Nasal Cannula Oxygen Flow Rate 2 2 10/16/22 08:00 10/16/22 14:00 Temperature 36.7 C Pulse Rate 70 62 Respiratory Rate 20 Blood Pressure 130/52 L Pulse Oximetry 93 Oxygen Delivery Oxygen Flow Rate Intake/Output Intake/Output: Intake & Output 10/13/22 10/14/22 10/15/22 10/16/22 23:59 23:59 23:59 23:59 Intake Total 3397 2820 1023 Balance 3397 2820 1023 Meds/Results Medications: Active Medications Generic Name Dose Route Start Last Admin Trade Name Freq PRN Reason Stop Dose Admin Hydrocodone Bitart/Acetaminophen 1.5 tab 10/14/22 09:48 10/16/22 09:40 Hydrocodone/Acetaminophen (*Crx) 10-325 Mg Tablet PO 1.5 tab Q6H PRN Administration pain 4-6 Allopurinol 100 mg 10/14/22 11:00 10/16/22 09:25 Allopurinol 100 Mg Tablet PO 100 mg DAILY GAMAL Administration Apixaban 5 mg 10/14/22 17:00 10/16/22 09:26 Apixaban 5 Mg Tablet PO 5 mg BID GAMAL Administration Furosemide 20 mg 10/14/22 11:00 10/16/22 09:25 Furosemide 20 Mg Tablet PO 20 mg QAM GAMAL Administration Home Med 1 each 10/15/22 17:00 10/16/22 12:50 (Tranylcypromine 10 Mg Tablet) Home Med PO 11/14/22 16:59 1 each TID GAMAL Administration Piperacillin/Tazobactam/Dextrose 3.375 gm in 50 mls @ 100 mls/hr 10/14/22 06:00 10/16/22 12:49 Zosyn 3.375 Gm/Ns 50 Ml IVPB 100 mls/hr Q6H GAMAL Administration Vancomycin HCl 1,750 mg in 500 mls @ 250 mls/hr 10/15/22 21:00 10/16/22 09:27 Vancomycin 1,750 Mg/D5w 500 Ml IVPB 250 mls/hr Q12H GAMAL Administration Losartan Potassium 100 mg 10/14/22 11:00 10/16/22 09:26 Losartan Potassium 100 Mg Tablet PO 100 mg DAILY GAMAL Administration Nifedipine 30 mg 10/14/22 13:00 10/16/22 12:49 Nifedipine 30 Mg Tab.Er.24 PO 30 mg TID GAMAL Administration Oxycodone/Acetaminophen 1 tab 10/14/22 09:48 10/15/22 17:07 Oxycodone/Acetaminophen (*Crx) 10-325 Mg Tablet PO 1
[2022-10-16] MEDS: oxyCODONE/ACETAMINOPHEN (*CRX) 10-325 MG TABLET 1 TAB PO (16:50)
[2022-10-16] MEDS: PRAMIPEXOLE 0.25 MG TABLET 0.75 MG PO (20:09)
--- NOTE | 2022-10-16 20:14 | PC.NURSE ---
Trini Serra performed this patients care on 10/16/22. I agree with her assessments.
--- NOTE | 2022-10-17 | ECHO_ITS ---
Patient Info Name: Tremayne Garcia Age: 66 years : 1955 Gender: Male Ht: 68 in Wt: 285 lbs BSA: 2.56 m2 HR: 78 bpm BP: 117 / 61 mmHg Heart Rhythm: Sinus Rhythm Technical Quality: Fair Exam Date: 10/17/2022 4:12 PM Exam Location: [facility] Exam Room: [facility] Patient Status: Inpatient Admit Date: 10/14/2022 Staff Ordering Physician: Carlin Sampson APRN Professor Of Literature: Zena Glover RDCS Attending Provider: Yvonne Wilson DO Exam Type: CA echo dop color flow w con Study Info Indications - CHF DYSPNEA Complete two-dimensional, color flow and Doppler transthoracic echocardiogram is performed with contrast to opacify the left ventricle and to improve the deliniation of the left ventricle endocardial borders. Contrast/Agitated Saline Contrast/Ag. Saline: Definity Amount: 2.00 ml Administered By: Zena Glover [facility] Existing IV Access: Yes IV Access Condition: patent with no signs of infiltration Summary 1. Left ventricular chamber dimension is mildly enlarged. 2. Left ventricular systolic function is normal, estimated at 55-60%. 3. There is mildly increased left ventricular wall thickness. 4. The left ventricular diastolic function is grade III diastolic dysfunction. 5. Left atrial chamber dimension is severely enlarged. 6. Right atrial chamber dimension is severely enlarged. 7. There is no aortic valve stenosis. 8. There is mild mitral valve regurgitation. 9. There is mild tricuspid valve regurgitation. 10. No pulmonary hypertension, estimated pulmonary arterial systolic pressure is 28 mmHg. Left Ventricle Left ventricular chamber dimension is mildly enlarged. Left ventricular systolic function is normal, estimated at 55-60%. There is mildly increased left ventricular wall thickness. The left ventricular diastolic function is grade III diastolic dysfunction. Right Ventricle Right ventricular chamber dimension is normal. Right ventricular systolic function is normal. Left Atria Left atrial chamber dimension is severely enlarged. Right Atria Right atrial chamber dimension is severely enlarged. Aortic Valve The aortic valve is probable trileaflet. There is mild aortic valve sclerosis. There is no aortic valve stenosis. There is mild aortic valve regurgitation. Pulmonic Valve The pulmonic valve is not well visualized. There is trace pulmonic regurgitation. Mitral Valve The mitral valve has normal leaflets. There is mild mitral valve regurgitation. The mitral valve annulus is mildly calcified. Tricuspid Valve The tricuspid valve leaflets are normal. There is mild tricuspid valve regurgitation. No pulmonary hypertension, estimated pulmonary arterial systolic pressure is 28 mmHg. Inferior Vena Cava Normal inferior vena cava with >50% collapse upon inspiration consistent with normal right atrial pressure, 5 mmHg. Aorta The aortic root size at the sinus of Valsalva is normal. There is moderate aortic atherosclerosis. Left Ventricular Outflow Tract Name Value Normal LVOT 2D LVOT Diameter 2.12 cm LVOT Doppler LVOT Peak Gradient 8 mmHg LVOT Mean Gradient 4 mmHg
[2022-10-17] MEDS: PIPERACILLN/TAZ 3.375GM/NS50ML 3.375 GM/50 ML BAG IVPB ×2 (05:16→12:59)
[2022-10-17 06:00] VITALS: BP 117/61; PULSE 53; RESP 16; TEMP 36.4; O2SAT 96
[2022-10-17 08:00] VITALS: O2SAT 91
[2022-10-17 08:01] LABS: Basophils Percent Auto 0.4 % (0.2-1.2); Eosinophils Absolute Auto 0.3 K/mm3 (0-0.3); Eosinophils Percent Auto 4.6 % (0-4.4); Hematocrit 31.6 % (42.0-52.0); Hemoglobin 10.2 g/dL (14.0-18.0); Immature Granulocyte Absolute 0.04 K/mm3 (0.00-0.031); Immature Granulocyte Percent A 0.6 % (0-0.5); Lymphocytes Absolute Auto 0.91 K/mm3 (0.9-3.2); Mean Corpuscular HGB Conc 32.3 g/dl (32-36); Mean Corpuscular Hemoglobin 29.3 pg (26-34); Mean Corpuscular Volume 90.8 fl (80-100); Mean Platelet Volume 9.7 fl (7.4-10.4); Monocytes Absolute Auto 0.9 K/mm3 (0.1-0.6); Monocytes Percent Auto 12.4 % (2.6-8.5); Neutrophils Absolute Auto 4.8 K/mm3 (1.3-6.7); Platelet Count Result 164 k/mm3 (150-375); Red Blood Count 3.48 M/mm3 (4.6-6.20); Red Cell Distribution Width 13.2 % (11.5-14.5)
[2022-10-17 08:11] LABS: Anion Gap 9 mmol/L (8-16); Blood Urea Nitrogen 22 mg/dL (9-20); Calcium 8.3 mg/dL (8.4-10.2); Carbon Dioxide 29 mmol/L (22-30); Chloride 96 mmol/L (98-107); Estimated CRCL calculation 49 ml/min; Estimated Glomerular Filt Rate 38; Glucose 108 mg/dL (65-110); Potassium 3.8 mmol/L (3.4-5.0); Sodium 134 mmol/L (137-145)
[2022-10-17 08:16] LABS: Vancomycin Trough 22.5 ug/mL (10.0-20.0)
[2022-10-17 09:22] VITALS: O2SAT 93
[2022-10-17] MEDS: APIXABAN 5 MG TABLET PO ×2 (09:59→17:42)
[2022-10-17] MEDS: FUROSEMIDE 20 MG TABLET PO (10:00)
[2022-10-17] MEDS: allopurinoL 100 MG TABLET PO (10:00)
[2022-10-17] MEDS: NIFEdipine 30 MG TAB.ER.24 PO ×3 (10:00→17:42)
[2022-10-17] MEDS: LOSARTAN POTASSIUM 100 MG TABLET PO (10:00)
[2022-10-17] MEDS: SILVERGEL (ELTA) 45 ML 1 APPLIC TOPICAL (10:07)
--- NOTE | 2022-10-17 10:45 | PM.IMPN ---
Progress Note: A&P Assessment and Plan (1) Infected puncture wound of plantar aspect of foot: Qualifiers: Encounter type: initial encounter Laterality: left Qualified Code(s): S91.332A - Puncture wound without foreign body, left foot, initial encounter; L08.9 - Local infection of the skin and subcutaneous tissue, unspecified Code(s): S91.339A - Puncture wound without foreign body, unspecified foot, initial encounter; L08.9 - Local infection of the skin and subcutaneous tissue, unspecified Status: Acute Assessment and Plan: blistering and sloughing the skin grossly unchanged from yesterday. Mild drainage stone. Less tenderness. No change in apparent cellulitis. MRI ordered the with without contrast (2) JOSUÉ (acute kidney injury): Code(s): N17.9 - Acute kidney failure, unspecified Status: Acute Assessment and Plan: JOSUÉ now noted with serum creatinine elevation from 0.9 yesterday to 1.8 today. GFR has decreased into the 30s. Suspected to be primarily from continued vancomycin and Zosyn. IV Lasix was also used yesterday for pulmonary edema/ fluid overload. We will renally dose cefepime and give IV Flagyl instead vancomycin and Zosyn. Renal ultrasound ordered (3) Chronic CHF: Code(s): I50.9 - Heart failure, unspecified Status: Acute Assessment and Plan: oxygen remains in place. Patient reports he has not had problem with fluid in his lungs for 10 years. Echocardiogram ordered. (4) Essential (primary) hypertension: Code(s): I10 - Essential (primary) hypertension Status: Acute Assessment and Plan: Blood pressure stable. Continue home medications. Blood pressure reviewed 10/17 (5) Sleep apnea in adult: Code(s): G47.30 - Sleep apnea, unspecified Status: Acute Assessment and Plan: CPAP still present at bedside but patient is not using it (6) Chronic atrial fibrillation: Code(s): I48.20 - Chronic atrial fibrillation, unspecified Status: Acute Assessment and Plan: regular rhythm with rate 70s, telemetry has been discontinued. 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 Wound care consult has been completed. MRI ordered (9) Prediabetes: Code(s): R73.03 - Prediabetes Status: Acute Assessment and Plan: hemoglobin A1c 5.2. Plan JOSUÉ after sustained use of IV vancomycin and Zosyn. This has been changed to renally adjusted cefepime and Flagyl. diet: Heart healthy VTE prophylaxis: SCDs, Eliquis resumed GI prophylaxis: Not indicated medication reconciliation: Completed by admitting provider, patient takes MAOI--caution with other medications ordered pain: Hydrocodone and oxycodone are home medications and ordered for pain levels 4-10 nausea: Compazine ordered p.r.n. code status: Full code Time Spent With Patient Time with patient: Greater than 35 minutes Subjective Date/time seen: 10/17/22 13:00 Interval history: Patient reports still having some mild shortness of breath RN notes some mild desaturation into the upper 80s on room air so he is still on 1 liter/minute nasal cannula. Patient denies any other complaints states that his foot feels better when he has to ambulate that putting pressure it does not hurt as much as it did the last couple of days. Review of labs shows that patient now has a significant JOSUÉ serum creatinine changed from 0.9-1.8 overnight. Discussed with ID pharmacy and changed antibiotics to renal dose cefepime and Flagyl instead of vanc and Zosyn. Review of Systems Review of Systems: All systems reviewed & are unremarkable except as noted in HPI and below Exa
[2022-10-17] MEDS: oxyCODONE/ACETAMINOPHEN (*CRX) 10-325 MG TABLET 1 TAB PO ×2 (13:06→22:51)
[2022-10-17 14:00] VITALS: BP 144/62; PULSE 75; RESP 24; TEMP 36.4; O2SAT 93
[2022-10-17] MEDS: metroNIDAZOLE 500 MG/ISO 100ML 500 MG/100 ML BAG 100 MG IVPB ×2 (14:34→20:44)
[2022-10-17] MEDS: PERFLUTREN LIPID MICROSPHERES 1.5 ML VIAL DILUTED TO 10 ML TOTAL VOLUME IV PUSH (16:45)
--- NOTE | 2022-10-17 16:54 | IVDEFINITY ---
Prior to administration of IV Definity the patient was educated on the risks and benefits of the imaging enhancing agent including potential adverse side effects. The patient verbalized understanding. Allergies were verified. No exclusion criteria were identified and at least one of the following inclusion criteria were met: 1) physician request, 2) patient technically difficult to image (per the [place] [employer] guidelines of two or more segments not discernable within the apical view), or 3) questionable left ventricular function. ?
[2022-10-17] MEDS: HYDROcodone/acetaminophen (*CRX) 10-325 MG TABLET 1.5 TAB PO (18:17)
[2022-10-17] MEDS: CEFEPIME 2 GM/NS 50 ML 2 GM/50 ML BAG IVPB (18:31)
[2022-10-17] MEDS: PRAMIPEXOLE 0.25 MG TABLET 0.75 MG PO (20:39)
--- NOTE | 2022-10-17 21:07 | PC.NURSE ---
This nurse reviewed all Linda Shelton's (license pending) charting for this pt, and approved all entries for 10-16-22/10-17-22.
[2022-10-17 22:00] VITALS: BP 124/54; PULSE 64; RESP 18; TEMP 36.6; O2SAT 95
--- NOTE | 2022-10-18 02:53 | PC.NURSE ---
I have reviewed Linda Shelton's (license pending) charting and agree with all entries for 10-17-22/10-18-22.
[2022-10-18] MEDS: CEFEPIME 2 GM/NS 50 ML 2 GM/50 ML BAG IVPB ×2 (05:19→17:45)
[2022-10-18 05:33] VITALS: BP 115/62; PULSE 62; RESP 20; TEMP 36.4; O2SAT 93
[2022-10-18] MEDS: metroNIDAZOLE 500 MG/ISO 100ML 500 MG/100 ML BAG 100 MG IVPB ×3 (05:45→20:38)
[2022-10-18 07:59] LABS: Basophils Absolute Auto 0.1 K/mm3 (0.0-0.1); Basophils Percent Auto 0.8 % (0.2-1.2); Eosinophils Absolute Auto 0.4 K/mm3 (0-0.3); Eosinophils Percent Auto 5.6 % (0-4.4); Hematocrit 32.9 % (42.0-52.0); Hemoglobin 10.5 g/dL (14.0-18.0); Immature Granulocyte Absolute 0.03 K/mm3 (0.00-0.031); Immature Granulocyte Percent A 0.5 % (0-0.5); Lymphocytes Absolute Auto 0.97 K/mm3 (0.9-3.2); Lymphocytes Percent Auto 15.2 % (18.3-44.2); Mean Corpuscular HGB Conc 31.9 g/dl (32-36); Mean Corpuscular Hemoglobin 29.2 pg (26-34); Mean Corpuscular Volume 91.6 fl (80-100); Monocytes Absolute Auto 0.7 K/mm3 (0.1-0.6); Monocytes Percent Auto 11.4 % (2.6-8.5); Neutrophils Absolute Auto 4.3 K/mm3 (1.3-6.7); Neutrophils Percent Auto 66.5 % (45.5-73.1); Platelet Count Result 182 k/mm3 (150-375); Red Blood Count 3.59 M/mm3 (4.6-6.20); Red Cell Distribution Width 12.9 % (11.5-14.5); White Blood Count 6.4 K/mm3 (4.5-10.0)
[2022-10-18 08:08] LABS: Anion Gap 6 mmol/L (8-16); Blood Urea Nitrogen 22 mg/dL (9-20); Calcium 8.4 mg/dL (8.4-10.2); Carbon Dioxide 29 mmol/L (22-30); Chloride 101 mmol/L (98-107); Estimated CRCL calculation 55 ml/min; Estimated Glomerular Filt Rate 44; Glucose 104 mg/dL (65-110); Potassium 3.9 mmol/L (3.4-5.0); Sodium 136 mmol/L (137-145)
[2022-10-18 08:28] LABS: Vancomycin Trough 18.5 ug/mL (10.0-20.0)
[2022-10-18] MEDS: NIFEdipine 30 MG TAB.ER.24 PO ×3 (08:40→17:44)
[2022-10-18] MEDS: FUROSEMIDE 20 MG TABLET PO (08:40)
[2022-10-18] MEDS: APIXABAN 5 MG TABLET PO ×2 (08:40→17:44)
[2022-10-18] MEDS: allopurinoL 100 MG TABLET PO (08:40)
[2022-10-18] MEDS: LOSARTAN POTASSIUM 100 MG TABLET PO (08:40)
[2022-10-18] MEDS: SILVERGEL (ELTA) 45 ML 1 APPLIC TOPICAL (08:41)
[2022-10-18] MEDS: HYDROcodone/acetaminophen (*CRX) 10-325 MG TABLET 1.5 TAB PO ×2 (08:42→22:31)
--- NOTE | 2022-10-18 08:45 | P.PNIM_ITS ---
Progress Note: A&P Assessment and Plan (1) Infected puncture wound of plantar aspect of foot: Qualifiers: Encounter type: initial encounter Laterality: left Qualified Code(s): S91.332A - Puncture wound without foreign body, left foot, initial encounter; L08.9 - Local infection of the skin and subcutaneous tissue, unspecified Code(s): S91.339A - Puncture wound without foreign body, unspecified foot, initial encounter; L08.9 - Local infection of the skin and subcutaneous tissue, unspecified Status: Acute Assessment and Plan: * Presented to the ED with complaints of left foot infection * CT of the foot 8 mm radiopaque foreign body plantar to second proximal phalanx * Foot xray 8 mm radiopaque foreign body plantar to second proximal phalanx, no osteomyelitis * MRI soft tissue infection with associated ulcer/laceration/draining abscess at the plantar aspect of the foot at the region of the proximal phalanx, no osteomyelitis * General surgery consulted * Continue cefepime, metronidazole, and vancomycin * WBC stable * Most likely will need a couple more days of IV antibiotics (2) JOSUÉ (acute kidney injury): Code(s): N17.9 - Acute kidney failure, unspecified Status: Acute Assessment and Plan: * Creatinine elevated to 1.8 * Most likely related to medication * Seems to be trending down currently at 1.6 * Renal ultrasound possible stones, no hydronephrosis * Continue to to trend creatinine * avoid nephrotoxic medications * renal adjust medications (3) Chronic CHF: Qualifiers: Heart failure type: diastolic Qualified Code(s): I50.32 - Chronic diastolic (congestive) heart failure Code(s): I50.9 - Heart failure, unspecified Status: Acute Assessment and Plan: * Chronic diastolic heart failure * Echo showed 55-60% with a grade 3 diastolic heart failure * Continue home furosemide, nifedipine, sotalol, losartan * Trend urine output * Daily weights (4) Essential (primary) hypertension: Code(s): I10 - Essential (primary) hypertension Status: Acute Assessment and Plan: * Blood pressure stable 115/62 * Continue home medications. * Trend BP * Adjust BP as indicated (5) Sleep apnea in adult: Code(s): G47.30 - Sleep apnea, unspecified Status: Acute Assessment and Plan: * CPAP still present at bedside (6) Chronic atrial fibrillation: Code(s): I48.20 - Chronic atrial fibrillation, unspecified Status: Acute Assessment and Plan: * regular rhythm with rate 70s, telemetry has been discontinued. 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 Plan Time Spent With Patient
--- NOTE | 2022-10-18 08:45 | PM.IMPN ---
Progress Note: A&P Assessment and Plan (1) Infected puncture wound of plantar aspect of foot: Qualifiers: Encounter type: initial encounter Laterality: left Qualified Code(s): S91.332A - Puncture wound without foreign body, left foot, initial encounter; L08.9 - Local infection of the skin and subcutaneous tissue, unspecified Code(s): S91.339A - Puncture wound without foreign body, unspecified foot, initial encounter; L08.9 - Local infection of the skin and subcutaneous tissue, unspecified Status: Acute Assessment and Plan: Presented to the ED with complaints of left foot infection CT of the foot 8 mm radiopaque foreign body plantar to second proximal phalanx Foot xray 8 mm radiopaque foreign body plantar to second proximal phalanx, no osteomyelitis MRI soft tissue infection with associated ulcer/laceration/draining abscess at the plantar aspect of the foot at the region of the proximal phalanx, no osteomyelitis General surgery consulted Continue cefepime, metronidazole, and vancomycin WBC stable Most likely will need a couple more days of IV antibiotics (2) JOSUÉ (acute kidney injury): Code(s): N17.9 - Acute kidney failure, unspecified Status: Acute Assessment and Plan: Creatinine elevated to 1.8 Most likely related to medication Seems to be trending down currently at 1.6 Renal ultrasound possible stones, no hydronephrosis Continue to to trend creatinine avoid nephrotoxic medications renal adjust medications (3) Chronic CHF: Qualifiers: Heart failure type: diastolic Qualified Code(s): I50.32 - Chronic diastolic (congestive) heart failure Code(s): I50.9 - Heart failure, unspecified Status: Acute Assessment and Plan: Chronic diastolic heart failure Echo showed 55-60% with a grade 3 diastolic heart failure Continue home furosemide, nifedipine, sotalol, losartan Trend urine output Daily weights (4) Essential (primary) hypertension: Code(s): I10 - Essential (primary) hypertension Status: Acute Assessment and Plan: Blood pressure stable 115/62 Continue home medications. Trend BP Adjust BP as indicated (5) Sleep apnea in adult: Code(s): G47.30 - Sleep apnea, unspecified Status: Acute Assessment and Plan: CPAP still present at bedside (6) Chronic atrial fibrillation: Code(s): I48.20 - Chronic atrial fibrillation, unspecified Status: Acute Assessment and Plan: regular rhythm with rate 70s, telemetry has been discontinued. 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 Plan Time Spent With Patient Time: 43 minutes Time with patient: Greater than 35 minutes Subjective Date/time seen: 10/18/22844 Interval history: 10/18/22844 patient was lying in bed. Patient denies any current chest pain, shortness a breath, nausea, vomiting, diarrhea constipation. patient stated that his foot does look better than he did yesterday. Still appears about the same as yesterday. 10/17/22 1045 Patient reports still having some mild shortness of breath RN notes some mild desaturation into the upper 80s on room air so he is still on 1 liter/minute nasal cannula. Patient denies any other complaints states that
--- NOTE | 2022-10-18 09:08 | PM.PNGS ---
Progress Note: A&P Assessment and Plan (1) Infected puncture wound of plantar aspect of foot: Qualifiers: Encounter type: initial encounter Laterality: left Qualified Code(s): S91.332A - Puncture wound without foreign body, left foot, initial encounter; L08.9 - Local infection of the skin and subcutaneous tissue, unspecified Code(s): S91.339A - Puncture wound without foreign body, unspecified foot, initial encounter; L08.9 - Local infection of the skin and subcutaneous tissue, unspecified Status: Acute Assessment and Plan: clinically improved, cont local wound care and abx, ok to dc from surgical standpoint c f/u as outpt in wound care clinic Subjective Subjective Date/Time Seen: 10/18/22 09:08 Interval history: feels ok, no acute issues Review of Systems Review of Systems: All systems reviewed & are unremarkable except as noted in HPI and below Exam Const: General: cooperative, comfortable and no acute distress Resp: Auscultation: clear to auscultation bilaterally Cardio: Rate: regular rate Rhythm: regular rhythm GI: Inspection: normal to inspection Extrem: Other: foot - sloughing of skin noted, no active drainage, decreased cellulitis, edema Objective Data Vital Signs Vital Signs: Vital Signs - 24 hr 10/17/22 09:22 10/17/22 14:00 10/17/22 23:22 Temperature 36.4 C Pulse Rate 75 Respiratory Rate 24 H Blood Pressure 144/62 H Pulse Oximetry 93 93 Oxygen Delivery Room Air CPAP 10/17/22 22:00 10/18/22 05:33 Temperature 36.6 C 36.4 C L Pulse Rate 64 62 Respiratory Rate 18 20 Blood Pressure 124/54 L 115/62 Pulse Oximetry 95 93 Oxygen Delivery Intake/Output Intake/Output: Intake & Output 10/15/22 10/16/22 10/17/22 10/18/22 23:59 23:59 23:59 23:59 Intake Total 3296 7511 6676 474 Balance 2820 5719 5072 863 Meds/Results Medications: Active Medications Generic Name Dose Route Start Last Admin Trade Name Freq PRN Reason Stop Dose Admin Hydrocodone Bitart/Acetaminophen 1.5 tab 10/14/22 09:48 10/18/22 08:42 Hydrocodone/Acetaminophen (*Crx) 10-325 Mg Tablet PO 1.5 tab Q6H PRN Administration pain 4-6 Allopurinol 100 mg 10/14/22 11:00 10/18/22 08:40 Allopurinol 100 Mg Tablet PO 100 mg DAILY GAMAL Administration Apixaban 5 mg 10/14/22 17:00 10/18/22 08:40 Apixaban 5 Mg Tablet PO 5 mg BID GAMAL Administration Furosemide 20 mg 10/14/22 11:00 10/18/22 08:40 Furosemide 20 Mg Tablet PO 20 mg QAM GAMAL Administration Home Med 1 each 10/15/22 17:00 10/18/22 08:41 (Tranylcypromine 10 Mg Tablet) Home Med PO 11/14/22 16:59 1 each TID GAMAL Administration Vancomycin HCl 1,750 mg in 500 mls @ 250 mls/hr 10/17/22 15:00 10/17/22 17:35 Vancomycin 1,750 Mg/D5w 500 Ml IVPB Infused Q18H GAMAL Infusion Cefepime HCl 2 gm in 50 mls @ 100 mls/hr 10/17/22 18:00 10/18/22 05:49 Maxipime 2 Gm/Ns 50 Ml IVPB Infused Q12H GAMAL Infusion Metronidazole 500 mg in 100 mls @ 100 mls/hr 10/17/22 14:00 10/18/22 06:45 Flagyl 500 Mg/Iso Soln 100 Ml IVPB Infused Q8HR GAMAL Infusion Losartan Potassium 100 mg 10/14/22 11:00 10/18/22 08:40 Losartan Potassium 100 Mg Tablet PO 100 mg DAILY GAMAL Administration Nifedipine 30 mg 10/14/22 13:00 10/18/22 08:40 Nifedipine 30 Mg Tab.Er.24 PO 30 mg TID GAMAL Administration Oxycodone/Acetaminophen 1 tab 10/14/22 09:48 10/17/22 22:51 Oxycodone/Acetaminophen (*Crx) 10-325 Mg Tablet PO 1 tab Q6H PRN Administration pain 7-10 Pramipexole Dihydrochloride 0.75 mg 10/14/22 21:00 10/17/22 20:39 Pramipexole 0.25 Mg Tablet PO 0.75 mg QHS GAMAL Administration Prochlorperazine Edisylate 10 mg 10/14/22 14:16 Prochlorperazine Edisylate 10 Mg/2 Ml Vial IV PUSH Q6H PRN Nausea And Vomiting Silver Nitrate 1 applic 10/16/22 09:00 10/18/22 08:41 Silvergel (Elta) 45 Ml TOPICAL 1 applic DAILY GAMAL Adminis
[2022-10-18 14:00] VITALS: BP 115/59; PULSE 64; RESP 20; TEMP 36.5; O2SAT 95
[2022-10-18] MEDS: oxyCODONE/ACETAMINOPHEN (*CRX) 10-325 MG TABLET 1 TAB PO (17:44)
[2022-10-18] MEDS: PRAMIPEXOLE 0.25 MG TABLET 0.75 MG PO (20:30)
[2022-10-18 21:40] VITALS: PULSE 77; O2SAT 97
[2022-10-18 22:00] VITALS: BP 121/62; PULSE 66; RESP 14; TEMP 35.8; O2SAT 96
[2022-10-19] MEDS: CEFEPIME 2 GM/NS 50 ML 2 GM/50 ML BAG IVPB ×2 (05:07→16:49)
[2022-10-19] MEDS: metroNIDAZOLE 500 MG/ISO 100ML 500 MG/100 ML BAG 100 MG IVPB ×2 (05:33→13:21)
--- NOTE | 2022-10-19 05:44 | PC.NURSE ---
This nurse reviewed Linda Shelton's (license pending) charting and agrees with all entries for 10-18-22 and 10-19-22.
[2022-10-19 05:54] VITALS: BP 116/48; PULSE 70; RESP 14; TEMP 35.9; O2SAT 99
[2022-10-19 06:24] LABS: Basophils Percent Auto 0.6 % (0.2-1.2); Eosinophils Absolute Auto 0.4 K/mm3 (0-0.3); Eosinophils Percent Auto 5.4 % (0-4.4); Hematocrit 33.7 % (42.0-52.0); Hemoglobin 10.9 g/dL (14.0-18.0); Immature Granulocyte Absolute 0.04 K/mm3 (0.00-0.031); Immature Granulocyte Percent A 0.6 % (0-0.5); Lymphocytes Percent Auto 13.8 % (18.3-44.2); Mean Corpuscular HGB Conc 32.3 g/dl (32-36); Mean Corpuscular Hemoglobin 29.2 pg (26-34); Mean Corpuscular Volume 90.3 fl (80-100); Mean Platelet Volume 9.8 fl (7.4-10.4); Monocytes Absolute Auto 0.7 K/mm3 (0.1-0.6); Monocytes Percent Auto 10.7 % (2.6-8.5); Neutrophils Absolute Auto 4.5 K/mm3 (1.3-6.7); Neutrophils Percent Auto 68.9 % (45.5-73.1); Platelet Count Result 209 k/mm3 (150-375); Red Blood Count 3.73 M/mm3 (4.6-6.20); Red Cell Distribution Width 12.5 % (11.5-14.5); White Blood Count 6.5 K/mm3 (4.5-10.0)
[2022-10-19 06:42] LABS: Anion Gap 7 mmol/L (8-16); Blood Urea Nitrogen 22 mg/dL (9-20); Calcium 8.5 mg/dL (8.4-10.2); Carbon Dioxide 29 mmol/L (22-30); Chloride 102 mmol/L (98-107); Estimated CRCL calculation 63 ml/min; Estimated Glomerular Filt Rate 51; Glucose 103 mg/dL (65-110); Potassium 3.9 mmol/L (3.4-5.0); Sodium 138 mmol/L (137-145)
[2022-10-19] MEDS: allopurinoL 100 MG TABLET PO (08:22)
[2022-10-19] MEDS: LOSARTAN POTASSIUM 100 MG TABLET PO (08:22)
[2022-10-19] MEDS: APIXABAN 5 MG TABLET PO ×2 (08:22→16:49)
[2022-10-19] MEDS: FUROSEMIDE 20 MG TABLET PO (08:23)
[2022-10-19] MEDS: SILVERGEL (ELTA) 45 ML 1 APPLIC TOPICAL (08:23)
[2022-10-19] MEDS: NIFEdipine 30 MG TAB.ER.24 PO ×3 (08:23→16:48)
--- NOTE | 2022-10-19 10:07 | P.PNIM_ITS ---
Progress Note: A&P Assessment and Plan (1) Infected puncture wound of plantar aspect of foot: Qualifiers: Encounter type: initial encounter Laterality: left Qualified Code(s): S91.332A - Puncture wound without foreign body, left foot, initial encounter; L08.9 - Local infection of the skin and subcutaneous tissue, unspecified Code(s): S91.339A - Puncture wound without foreign body, unspecified foot, initial encounter; L08.9 - Local infection of the skin and subcutaneous tissue, unspecified Status: Acute Assessment and Plan: * Wound healing well, dressing changed. * Continue cefepime, metronidazole, and vancomycin * WBC stable * Most likely will need a couple more days of IV antibiotics (2) JOSUÉ (acute kidney injury): Code(s): N17.9 - Acute kidney failure, unspecified Status: Acute Assessment and Plan: * Creatinine elevated to 1.4 * IV fluids to continue * Most likely related to medication * Seems to be trending down currently at 1.6 * Renal ultrasound possible stones, no hydronephrosis * Continue to to trend creatinine * avoid nephrotoxic medications * renal adjust medications (3) Chronic CHF: Qualifiers: Heart failure type: diastolic Qualified Code(s): I50.32 - Chronic diastolic (congestive) heart failure Code(s): I50.9 - Heart failure, unspecified Status: Acute Assessment and Plan: * Chronic diastolic heart failure * Echo showed 55-60% with a grade 3 diastolic heart failure * Continue home furosemide, nifedipine, sotalol, losartan * Trend urine output * Daily weights * Stable, continue current treatment. (4) Essential (primary) hypertension: Code(s): I10 - Essential (primary) hypertension Status: Acute Assessment and Plan: * Blood pressure stable * Continue home medications. * Trend BP * Adjust BP as indicated (5) Sleep apnea in adult: Code(s): G47.30 - Sleep apnea, unspecified Status: Acute Assessment and Plan: * CPAP still present at bedside (6) Chronic atrial fibrillation: Code(s): I48.20 - Chronic atrial fibrillation, unspecified Status: Acute Assessment and Plan: * regular rhythm with rate 70s, telemetry has been discontinued. * Continue home medications * Adjust therapy as indicated * Continue to trend HR (7) Anticoagulant long-term use: Code(s): Z79.01 - [facility] (current) use of anticoagulants Status: Acute Assessment and Plan: * anticoagulation restarted per surgery recommendations * Taking for Afib (8) Foreign body foot/toe: Status: Acute Assessment and Plan: * Wound care consult has been completed * MRI no osteomyelitis (9) Prediabetes: Code(s): R73.03 - Prediabetes Status: Acute Assessment and Plan: hemoglobin A1c 5.2. Plan Subjective Date/time seen: 10/19/22 10:07 Interval history: 10/19/2022 Patient was seen during the morning rounds today. Patient pain is under control. Dressing changed left foot. No shortness of breath or chest pain. No abdominal pain, nausea, no vomiting. Mood stable. 10/18/22 0845 patient was lying in bed. Patient denies any
--- NOTE | 2022-10-19 10:07 | PM.IMPN ---
Progress Note: A&P Assessment and Plan (1) Infected puncture wound of plantar aspect of foot: Qualifiers: Encounter type: initial encounter Laterality: left Qualified Code(s): S91.332A - Puncture wound without foreign body, left foot, initial encounter; L08.9 - Local infection of the skin and subcutaneous tissue, unspecified Code(s): S91.339A - Puncture wound without foreign body, unspecified foot, initial encounter; L08.9 - Local infection of the skin and subcutaneous tissue, unspecified Status: Acute Assessment and Plan: Wound healing well, dressing changed. Continue cefepime, metronidazole, and vancomycin WBC stable Most likely will need a couple more days of IV antibiotics (2) JOSUÉ (acute kidney injury): Code(s): N17.9 - Acute kidney failure, unspecified Status: Acute Assessment and Plan: Creatinine elevated to 1.4 IV fluids to continue Most likely related to medication Seems to be trending down currently at 1.6 Renal ultrasound possible stones, no hydronephrosis Continue to to trend creatinine avoid nephrotoxic medications renal adjust medications (3) Chronic CHF: Qualifiers: Heart failure type: diastolic Qualified Code(s): I50.32 - Chronic diastolic (congestive) heart failure Code(s): I50.9 - Heart failure, unspecified Status: Acute Assessment and Plan: Chronic diastolic heart failure Echo showed 55-60% with a grade 3 diastolic heart failure Continue home furosemide, nifedipine, sotalol, losartan Trend urine output Daily weights Stable, continue current treatment. (4) Essential (primary) hypertension: Code(s): I10 - Essential (primary) hypertension Status: Acute Assessment and Plan: Blood pressure stable Continue home medications. Trend BP Adjust BP as indicated (5) Sleep apnea in adult: Code(s): G47.30 - Sleep apnea, unspecified Status: Acute Assessment and Plan: CPAP still present at bedside (6) Chronic atrial fibrillation: Code(s): I48.20 - Chronic atrial fibrillation, unspecified Status: Acute Assessment and Plan: regular rhythm with rate 70s, telemetry has been discontinued. 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 Plan Subjective Date/time seen: 10/19/22 10:07 Interval history: 10/19/2022 Patient was seen during the morning rounds today. Patient pain is under control. Dressing changed left foot. No shortness of breath or chest pain. No abdominal pain, nausea, no vomiting. Mood stable. 10/18/22 0845 patient was lying in bed. Patient denies any current chest pain, shortness a breath, nausea, vomiting, diarrhea constipation. patient stated that his foot does look better than he did yesterday. Still appears about the same as yesterday. 10/17/22 1045 Patient reports still having some mild shortness of breath RN notes some mild desaturation into the upper 80s on room air so he is still on 1 liter/minute nasal cannula. Patient denies any other complaints states that his foot feels better when he has to ambulate that putting pressure it does not hurt as much as it did the last couple of days. Review of labs shows that patient now has a significant JOSUÉ serum creatinine changed from 0.9-1.8 anjelica
--- NOTE | 2022-10-19 12:08 | PM.PNGS ---
Progress Note: A&P Assessment and Plan (1) Infected puncture wound of plantar aspect of foot: Qualifiers: Encounter type: initial encounter Laterality: left Qualified Code(s): S91.332A - Puncture wound without foreign body, left foot, initial encounter; L08.9 - Local infection of the skin and subcutaneous tissue, unspecified Code(s): S91.339A - Puncture wound without foreign body, unspecified foot, initial encounter; L08.9 - Local infection of the skin and subcutaneous tissue, unspecified Status: Acute Assessment and Plan: Patient continues to have cellulitis of the left forefoot. It is improving but he still needs to continue on the IV antibiotics which are covering the which organisms well. Local wound care a follow-up with the wound care nurse while he is in the hospital. Subjective Subjective Date/Time Seen: 10/19/22 12:08 Interval history: Patient states his left foot feels better. Less pain and swelling. Culture showed Klebsiella and Staph aureus which are well covered by the vancomycin and cefepime that he is on for IV antibiotics. Local wound care for the left foot. White blood count is normal at 6500. He has had no fever. Exam Const: General: comfortable and no acute distress Neck: Neck: supple Resp: Effort & Inspection: normal respiratory effort Auscultation: clear to auscultation bilaterally Cardio: Rate: regular rate Rhythm: regular rhythm GI: GI Palp: Yes Soft to palpation, No Firmness to palpation present (GI), No Tenderness to palpation present (GI), No Guarding due to palpation present (GI) and No Hernia present Extrem: Other: Left foot with markedly decrease swelling on the dorsum of the foot. There is still some mild erythema but much better than the last few days. He is able to move all of his toes on his left foot. There is still some mildly purulent drainage coming from the injury site but compared to his initial presentation it continues to improve. No obvious area of fluctuance is noted to be drained. Objective Data Vital Signs Vital Signs: Vital Signs - 24 hr 10/18/22 14:00 10/18/22 22:00 10/18/22 21:40 Temperature 36.5 C 35.8 C L Pulse Rate 64 66 77 Respiratory Rate 20 14 Blood Pressure 115/59 L 121/62 Pulse Oximetry 95 96 97 Oxygen Delivery CPAP 10/19/22 05:54 10/19/22 08:15 Temperature 35.9 C L Pulse Rate 70 Respiratory Rate 14 Blood Pressure 116/48 L Pulse Oximetry 99 Oxygen Delivery Room Air Intake/Output Intake/Output: Intake & Output 10/16/22 10/17/22 10/18/22 10/19/22 23:59 23:59 23:59 23:59 Intake Total 3673 2692 2844 1290 Balance 3673 2692 2844 1290 Meds/Results Medications: Active Medications Generic Name Dose Route Start Last Admin Trade Name Freq PRN Reason Stop Dose Admin Hydrocodone Bitart/Acetaminophen 1.5 tab 10/14/22 09:48 10/18/22 22:31 Hydrocodone/Acetaminophen (*Crx) 10-325 Mg Tablet PO 1.5 tab Q6H PRN Administration pain 4-6 Allopurinol 100 mg 10/14/22 11:00 10/19/22 08:22 Allopurinol 100 Mg Tablet PO 100 mg DAILY GAMAL Administration Apixaban 5 mg 10/14/22 17:00 10/19/22 08:22 Apixaban 5 Mg Tablet PO 5 mg BID GAMAL Administration Furosemide 20 mg 10/14/22 11:00 10/19/22 08:23 Furosemide 20 Mg Tablet PO 20 mg QAM GAMAL Administration Home Med 1 each 10/15/22 17:00 10/19/22 08:23 (Tranylcypromine 10 Mg Tablet) Home Med PO 11/14/22 16:59 1 each TID GAMAL Administration Vancomycin HCl 1,750 mg in 500 mls @ 250 mls/hr 10/17/22 15:00 10/19/22 04:38 Vancomycin 1,750 Mg/D5w 500 Ml IVPB Infused Q18H GAMAL Infusion Cefepime HCl 2 gm in 50 mls @ 100 mls/hr 10/17/22 18:00 10/19/22 05:37 Maxipime 2 Gm/Ns 50 Ml IVPB Infused Q12H GAMAL Infusion Metronidazole 500 mg in 100 mls @ 100 mls/hr 10/17/22 14:00 10/19/22 06:33 Flagyl 500 Mg/Iso Soln 100 Ml IVPB Infused Q8HR GAMAL Infusion Losartan Potassium 100 mg 0
[2022-10-19 14:00] VITALS: BP 139/54; PULSE 64; RESP 16; TEMP 36.5; O2SAT 100
[2022-10-19] MEDS: PROCHLORPERAZINE EDISYLATE 10 MG/2 ML VIAL IV PUSH (16:48)
[2022-10-19] MEDS: oxyCODONE/ACETAMINOPHEN (*CRX) 10-325 MG TABLET 1 TAB PO (16:48)
[2022-10-19] MEDS: PRAMIPEXOLE 0.25 MG TABLET 0.75 MG PO (20:43)
[2022-10-19] MEDS: HYDROcodone/acetaminophen (*CRX) 10-325 MG TABLET 1.5 TAB PO (20:51)
[2022-10-19 22:00] VITALS: BP 147/70; PULSE 63; RESP 18; TEMP 35.9; O2SAT 100
[2022-10-19 23:00] VITALS: O2SAT 99
[2022-10-20] MEDS: metroNIDAZOLE 500 MG/ISO 100ML 500 MG/100 ML BAG 100 MG IVPB ×3 (00:20→13:02)
[2022-10-20] MEDS: MELATONIN 5 MG TABLET PO (02:47)
[2022-10-20] MEDS: CEFEPIME 2 GM/NS 50 ML 2 GM/50 ML BAG IVPB ×2 (05:22→17:23)
[2022-10-20] MEDS: oxyCODONE/ACETAMINOPHEN (*CRX) 10-325 MG TABLET 1 TAB PO ×3 (05:39→22:12)
[2022-10-20 06:00] VITALS: BP 119/52; PULSE 69; RESP 16; TEMP 36.6; O2SAT 99
[2022-10-20 06:07] LABS: Basophils Percent Auto 0.6 % (0.2-1.2); Eosinophils Absolute Auto 0.3 K/mm3 (0-0.3); Eosinophils Percent Auto 4.1 % (0-4.4); Hematocrit 34.3 % (42.0-52.0); Hemoglobin 11.2 g/dL (14.0-18.0); Immature Granulocyte Absolute 0.04 K/mm3 (0.00-0.031); Immature Granulocyte Percent A 0.6 % (0-0.5); Lymphocytes Absolute Auto 0.88 K/mm3 (0.9-3.2); Lymphocytes Percent Auto 12.9 % (18.3-44.2); Mean Corpuscular HGB Conc 32.7 g/dl (32-36); Mean Corpuscular Hemoglobin 29.4 pg (26-34); Mean Platelet Volume 9.9 fl (7.4-10.4); Monocytes Absolute Auto 0.6 K/mm3 (0.1-0.6); Monocytes Percent Auto 8.7 % (2.6-8.5); Neutrophils Percent Auto 73.1 % (45.5-73.1); Platelet Count Result 212 k/mm3 (150-375); Red Blood Count 3.81 M/mm3 (4.6-6.20); Red Cell Distribution Width 12.7 % (11.5-14.5); White Blood Count 6.8 K/mm3 (4.5-10.0)
[2022-10-20 06:26] LABS: Anion Gap 5 mmol/L (8-16); Blood Urea Nitrogen 20 mg/dL (9-20); Calcium 8.7 mg/dL (8.4-10.2); Carbon Dioxide 27 mmol/L (22-30); Chloride 104 mmol/L (98-107); Estimated CRCL calculation 73 ml/min; Estimated Glomerular Filt Rate > 60; Glucose 102 mg/dL (65-110); Potassium 4.2 mmol/L (3.4-5.0); Sodium 136 mmol/L (137-145)
[2022-10-20] MEDS: NIFEdipine 30 MG TAB.ER.24 PO ×3 (08:10→17:23)
[2022-10-20] MEDS: LOSARTAN POTASSIUM 100 MG TABLET PO (08:10)
[2022-10-20] MEDS: SILVERGEL (ELTA) 45 ML 1 APPLIC TOPICAL (08:10)
[2022-10-20] MEDS: allopurinoL 100 MG TABLET PO (08:10)
[2022-10-20] MEDS: FUROSEMIDE 20 MG TABLET PO (08:10)
[2022-10-20] MEDS: APIXABAN 5 MG TABLET PO ×2 (08:10→17:22)
--- NOTE | 2022-10-20 08:23 | PM.IMPN ---
Progress Note: A&P Assessment and Plan (1) Infected puncture wound of plantar aspect of foot: Qualifiers: Encounter type: initial encounter Laterality: left Qualified Code(s): S91.332A - Puncture wound without foreign body, left foot, initial encounter; L08.9 - Local infection of the skin and subcutaneous tissue, unspecified Code(s): S91.339A - Puncture wound without foreign body, unspecified foot, initial encounter; L08.9 - Local infection of the skin and subcutaneous tissue, unspecified Status: Acute Assessment and Plan: Patient showing continued improvement. Gen surgery considering two additional days of IV abx. There are several oral options for step down therapy in light culture results. Will need wound nurse referral. - Will DC anaerobe coverage. Have discussed with general surgeon. (2) JOSUÉ (acute kidney injury): Code(s): N17.9 - Acute kidney failure, unspecified Status: Acute Assessment and Plan: Improving with creatinine to 1.2. - Hold further IVF. - No acute findings noted on renal u/s to explain josué. - Renally dose medications. (3) Chronic CHF: Qualifiers: Heart failure type: diastolic Qualified Code(s): I50.32 - Chronic diastolic (congestive) heart failure Code(s): I50.9 - Heart failure, unspecified Status: Acute Assessment and Plan: Stable symptomology. - Cont. lasix, arb, bb, ccb. (4) Essential (primary) hypertension: Code(s): I10 - Essential (primary) hypertension Status: Acute Assessment and Plan: Stable bp at 119/52. Cont. current regimen. (5) Sleep apnea in adult: Code(s): G47.30 - Sleep apnea, unspecified Status: Acute Assessment and Plan: Continue cpap. (6) Chronic atrial fibrillation: Code(s): I48.20 - Chronic atrial fibrillation, unspecified Status: Acute Assessment and Plan: Stable rate in the 60s. On apixaban from home. - Cont. bb and apixaban. 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 current. (8) Foreign body foot/toe: Status: Acute Assessment and Plan: - No osteomyelitis. General surgery managing the wound. Improving daily. (9) Prediabetes: Code(s): R73.03 - Prediabetes Status: Acute Assessment and Plan: hemoglobin A1c 5.2. Plan Doing well and will likely be able to dc to oral abx in the next 48 hours if continued clinical improvement. He denies new complaints or concerns. Time Spent With Patient Time: >35 minutes Subjective Date/time seen: 10/20/22 08:23 Interval history: Tremayne states he is continuing to feel improved. He states less redness and pain in the left foot. Review of Systems Review of Systems: ROS negative across 10 systems. Exam Narrative: GENERAL APPEARANCE: Appears to be in no acute distress. HEAD: normocephalic atraumatic EYES: PERRL, EOMI. Vision grossly intact. ENT: Hearing grossly intact, no nasal discharge NECK: Neck supple, trachea midline. CARDIAC: Normal S1/S2. Rhythm is regular. No murmurs, rubs, or gallops. No cyanosis or pallor. Extremities are warm and well perfused. LUNGS: Clear to auscultation without rales, rhonchi, wheezing or diminished breath sounds. Respirations even and unlabored. ABDOMEN: BS positive x 4 quadrants. Soft, nondistended, nontender. No guarding or rebound. MSK: No joint tenderness/swelling, fair strength in all extremities. PERIPHERAL VASCULAR: Peripheral pulses palpable. Normal perfusion, cap refill <2 seconds. No edema. NEURO: Follows commands. No focal deficits. SKIN: Left foot with dressing c/d/i no drainage noted. PSYCH: Stable, no paranoia or delusional thinking. Objective Data Vital Signs Vital Signs: Vital Signs - 24 hr 10/19/22 14:00 10/19/22 20:00 10/19/22 22:00 Temperature
--- NOTE | 2022-10-20 13:08 | PM.PNGS ---
Progress Note: A&P Assessment and Plan (1) Infected puncture wound of plantar aspect of foot: Qualifiers: Encounter type: initial encounter Laterality: left Qualified Code(s): S91.332A - Puncture wound without foreign body, left foot, initial encounter; L08.9 - Local infection of the skin and subcutaneous tissue, unspecified Code(s): S91.339A - Puncture wound without foreign body, unspecified foot, initial encounter; L08.9 - Local infection of the skin and subcutaneous tissue, unspecified Status: Acute Assessment and Plan: Continue current IV antibiotic regimen. Continue to paint the area the wound and toes with with Betadine and wrap with dry dressings. Hopefully only 2 more days of IV antibiotics and then he may be able to transition oral antibiotics at home. Subjective Subjective Date/Time Seen: 10/20/22 13:08 Interval history: Patient has no complaints today. Foot wound continues to improve. No fever. White blood cell count is normal. Exam Skin: Other: Left foot cellulitis is improving. Less drainage from the wound and swelling and redness is much less. Patient able to move all of his toes. No fluctuant areas to drain. Objective Data Vital Signs Vital Signs: Vital Signs - 24 hr 10/19/22 14:00 10/19/22 20:00 10/19/22 22:00 Temperature 36.5 C 35.9 C L Pulse Rate 64 63 Respiratory Rate 16 18 Blood Pressure 139/54 L 147/70 H Pulse Oximetry 100 100 Oxygen Delivery Room Air 10/19/22 23:00 10/20/22 02:00 10/20/22 06:00 Temperature 36.6 C Pulse Rate 69 Respiratory Rate 16 Blood Pressure 119/52 L Pulse Oximetry 99 99 Oxygen Delivery Room Air CPAP 10/20/22 08:15 Temperature Pulse Rate Respiratory Rate Blood Pressure Pulse Oximetry Oxygen Delivery Room Air Intake/Output Intake/Output: Intake & Output 10/17/22 10/18/22 10/19/22 10/20/22 23:59 23:59 23:59 23:59 Intake Total 2692 2844 2900 890 Output Total 200 Balance 2692 2844 2900 690 Meds/Results Medications: Active Medications Generic Name Dose Route Start Last Admin Trade Name Freq PRN Reason Stop Dose Admin Hydrocodone Bitart/Acetaminophen 1.5 tab 10/14/22 09:48 10/19/22 20:51 Hydrocodone/Acetaminophen (*Crx) 10-325 Mg Tablet PO 1.5 tab Q6H PRN Administration pain 4-6 Allopurinol 100 mg 10/14/22 11:00 10/20/22 08:10 Allopurinol 100 Mg Tablet PO 100 mg DAILY GAMAL Administration Apixaban 5 mg 10/14/22 17:00 10/20/22 08:10 Apixaban 5 Mg Tablet PO 5 mg BID GAMAL Administration Furosemide 20 mg 10/14/22 11:00 10/20/22 08:10 Furosemide 20 Mg Tablet PO 20 mg QAM GAMAL Administration Home Med 1 each 10/15/22 17:00 10/20/22 13:01 (Tranylcypromine 10 Mg Tablet) Home Med PO 11/14/22 16:59 1 each TID GAMAL Administration Vancomycin HCl 1,750 mg in 500 mls @ 250 mls/hr 10/17/22 15:00 10/19/22 22:43 Vancomycin 1,750 Mg/D5w 500 Ml IVPB Infused Q18H GAMAL Infusion Cefepime HCl 2 gm in 50 mls @ 100 mls/hr 10/17/22 18:00 10/20/22 05:53 Maxipime 2 Gm/Ns 50 Ml IVPB Infused Q12H GAMAL Infusion Metronidazole 500 mg in 100 mls @ 100 mls/hr 10/17/22 14:00 10/20/22 13:02 Flagyl 500 Mg/Iso Soln 100 Ml IVPB 100 mls/hr Q8HR GAMAL Administration Losartan Potassium 100 mg 10/14/22 11:00 10/20/22 08:10 Losartan Potassium 100 Mg Tablet PO 100 mg DAILY GAMAL Administration Melatonin 5 mg 10/20/22 02:13 10/20/22 02:47 Melatonin 5 Mg Tablet PO 5 mg HS PRN Administration Insomnia Nifedipine 30 mg 10/14/22 13:00 10/20/22 13:01 Nifedipine 30 Mg Tab.Er.24 PO 30 mg TID GAMAL Administration Oxycodone/Acetaminophen 1 tab 10/14/22 09:48 10/20/22 13:01 Oxycodone/Acetaminophen (*Crx) 10-325 Mg Tablet PO 1 tab Q6H PRN Administration pain 7-10 Pramipexole Dihydrochloride 0.75 mg 10/14/22 21:00 10/19/22 20:43 Pramipexole 0.25 Mg Tablet PO 0.75 mg QHS GAMAL Admin
[2022-10-20 14:00] VITALS: BP 137/68; PULSE 64; RESP 16; TEMP 36.8; O2SAT 97
[2022-10-20] MEDS: HYDROcodone/acetaminophen (*CRX) 10-325 MG TABLET 1.5 TAB PO (17:27)
[2022-10-20] MEDS: PRAMIPEXOLE 0.25 MG TABLET 0.75 MG PO (20:06)
[2022-10-20 21:58] VITALS: BP 124/65; PULSE 66; RESP 18; TEMP 36.3; O2SAT 99
[2022-10-20 23:16] VITALS: PULSE 72; O2SAT 98
[2022-10-21] MEDS: CEFEPIME 2 GM/NS 50 ML 2 GM/50 ML BAG IVPB ×2 (05:42→17:21)
[2022-10-21 06:00] VITALS: BP 149/71; PULSE 75; RESP 20; TEMP 36.4; O2SAT 100
[2022-10-21 07:56] LABS: Basophils Percent Auto 0.6 % (0.2-1.2); Eosinophils Absolute Auto 0.4 K/mm3 (0-0.3); Eosinophils Percent Auto 4.9 % (0-4.4); Hematocrit 36.6 % (42.0-52.0); Hemoglobin 11.6 g/dL (14.0-18.0); Immature Granulocyte Absolute 0.04 K/mm3 (0.00-0.031); Immature Granulocyte Percent A 0.6 % (0-0.5); Lymphocytes Absolute Auto 0.98 K/mm3 (0.9-3.2); Lymphocytes Percent Auto 13.6 % (18.3-44.2); Mean Corpuscular HGB Conc 31.7 g/dl (32-36); Mean Corpuscular Hemoglobin 28.9 pg (26-34); Mean Corpuscular Volume 91.3 fl (80-100); Mean Platelet Volume 9.5 fl (7.4-10.4); Monocytes Absolute Auto 0.7 K/mm3 (0.1-0.6); Monocytes Percent Auto 10.1 % (2.6-8.5); Neutrophils Absolute Auto 5.1 K/mm3 (1.3-6.7); Neutrophils Percent Auto 70.2 % (45.5-73.1); Platelet Count Result 216 k/mm3 (150-375); Red Blood Count 4.01 M/mm3 (4.6-6.20); Red Cell Distribution Width 12.8 % (11.5-14.5); White Blood Count 7.2 K/mm3 (4.5-10.0)
[2022-10-21 08:00] VITALS: O2SAT 96
[2022-10-21 08:09] LABS: Anion Gap 8 mmol/L (8-16); Blood Urea Nitrogen 18 mg/dL (9-20); Calcium 8.8 mg/dL (8.4-10.2); Carbon Dioxide 27 mmol/L (22-30); Chloride 102 mmol/L (98-107); Estimated CRCL calculation 63 ml/min; Estimated Glomerular Filt Rate 51; Glucose 102 mg/dL (65-110); Potassium 3.9 mmol/L (3.4-5.0); Sodium 137 mmol/L (137-145)
[2022-10-21 08:15] LABS: Vancomycin Trough 17.5 ug/mL (10.0-20.0)
[2022-10-21] MEDS: allopurinoL 100 MG TABLET PO (09:40)
[2022-10-21] MEDS: NIFEdipine 30 MG TAB.ER.24 PO ×3 (09:41→17:21)
[2022-10-21] MEDS: LOSARTAN POTASSIUM 100 MG TABLET PO (09:41)
[2022-10-21] MEDS: APIXABAN 5 MG TABLET PO ×2 (09:41→17:20)
[2022-10-21] MEDS: FUROSEMIDE 20 MG TABLET PO (09:41)
--- NOTE | 2022-10-21 11:45 | P.PNIM_ITS ---
Progress Note: A&P Assessment and Plan (1) Infected puncture wound of plantar aspect of foot: Qualifiers: Encounter type: initial encounter Laterality: left Qualified Code(s): S91.332A - Puncture wound without foreign body, left foot, initial encounter; L08.9 - Local infection of the skin and subcutaneous tissue, unspecified Code(s): S91.339A - Puncture wound without foreign body, unspecified foot, initial encounter; L08.9 - Local infection of the skin and subcutaneous tissue, unspecified Status: Acute Assessment and Plan: * Presented to the ED with complaints of left foot infection * CT of the foot 8 mm radiopaque foreign body plantar to second proximal phalanx * Foot xray 8 mm radiopaque foreign body plantar to second proximal phalanx, no osteomyelitis * MRI soft tissue infection with associated ulcer/laceration/draining abscess at the plantar aspect of the foot at the region of the proximal phalanx, no osteomyelitis * General surgery consulted * Continue cefepime and vancomycin, Bactrim on discharge * WBC stable * Seems to be resolving (2) JOSUÉ (acute kidney injury): Code(s): N17.9 - Acute kidney failure, unspecified Status: Acute Assessment and Plan: * Creatinine elevated 1.8 * Most likely related to medication * Seems to be trending down currently at 1.4 * Renal ultrasound possible stones, no hydronephrosis * Continue to to trend creatinine * avoid nephrotoxic medications * renal adjust medications (3) Chronic CHF: Qualifiers: Heart failure type: diastolic Qualified Code(s): I50.32 - Chronic diastolic (congestive) heart failure Code(s): I50.9 - Heart failure, unspecified Status: Acute Assessment and Plan: * Chronic diastolic heart failure * Echo showed 55-60% with a grade 3 diastolic heart failure * Continue home furosemide, nifedipine, sotalol, losartan * Trend urine output * Daily weights (4) Essential (primary) hypertension: Code(s): I10 - Essential (primary) hypertension Status: Acute Assessment and Plan: * Blood pressure stable 149/71 * Continue home medications. * Trend BP * Adjust BP as indicated (5) Sleep apnea in adult: Code(s): G47.30 - Sleep apnea, unspecified Status: Acute Assessment and Plan: * CPAP still present at bedside (6) Chronic atrial fibrillation: Code(s): I48.20 - Chronic atrial fibrillation, unspecified Status: Acute Assessment and Plan: * regular rhythm with rate 70s, telemetry has been discontinued. * Continue home medications * Adjust therapy as indicated * Continue to trend HR (7) Anticoagulant long-term use: Code(s): Z79.01 - group home (current) use of anticoagulants Status: Acute Assessment and Plan: * anticoagulation restarted per surgery recommendations * Taking for Afib (8) Foreign body foot/toe: Status: Acute Assessment and Plan: * surgery did not want to intervene * Wound care consult has been completed * MRI no osteomyelitis (9) Prediabetes: Code(s): R73.03 - Prediabetes Status: Acute Assessment and Plan: hemoglobin A1c 5.2. Plan collaboration with General surgery 12 minutes Time Sp
--- NOTE | 2022-10-21 11:45 | PM.IMPN ---
Progress Note: A&P Assessment and Plan (1) Infected puncture wound of plantar aspect of foot: Qualifiers: Encounter type: initial encounter Laterality: left Qualified Code(s): S91.332A - Puncture wound without foreign body, left foot, initial encounter; L08.9 - Local infection of the skin and subcutaneous tissue, unspecified Code(s): S91.339A - Puncture wound without foreign body, unspecified foot, initial encounter; L08.9 - Local infection of the skin and subcutaneous tissue, unspecified Status: Acute Assessment and Plan: Presented to the ED with complaints of left foot infection CT of the foot 8 mm radiopaque foreign body plantar to second proximal phalanx Foot xray 8 mm radiopaque foreign body plantar to second proximal phalanx, no osteomyelitis MRI soft tissue infection with associated ulcer/laceration/draining abscess at the plantar aspect of the foot at the region of the proximal phalanx, no osteomyelitis General surgery consulted Continue cefepime and vancomycin, Bactrim on discharge WBC stable Seems to be resolving (2) JOSUÉ (acute kidney injury): Code(s): N17.9 - Acute kidney failure, unspecified Status: Acute Assessment and Plan: Creatinine elevated 1.8 Most likely related to medication Seems to be trending down currently at 1.4 Renal ultrasound possible stones, no hydronephrosis Continue to to trend creatinine avoid nephrotoxic medications renal adjust medications (3) Chronic CHF: Qualifiers: Heart failure type: diastolic Qualified Code(s): I50.32 - Chronic diastolic (congestive) heart failure Code(s): I50.9 - Heart failure, unspecified Status: Acute Assessment and Plan: Chronic diastolic heart failure Echo showed 55-60% with a grade 3 diastolic heart failure Continue home furosemide, nifedipine, sotalol, losartan Trend urine output Daily weights (4) Essential (primary) hypertension: Code(s): I10 - Essential (primary) hypertension Status: Acute Assessment and Plan: Blood pressure stable 149/71 Continue home medications. Trend BP Adjust BP as indicated (5) Sleep apnea in adult: Code(s): G47.30 - Sleep apnea, unspecified Status: Acute Assessment and Plan: CPAP still present at bedside (6) Chronic atrial fibrillation: Code(s): I48.20 - Chronic atrial fibrillation, unspecified Status: Acute Assessment and Plan: regular rhythm with rate 70s, telemetry has been discontinued. 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 Plan collaboration with General surgery 12 minutes Time Spent With Patient Time: 56 minutes Time with patient: Greater than 35 minutes Subjective Date/time seen: 10/21/22 114 Interval history: 10/21/221144 Patient is doing a lot better today. Patient is very anxious about getting out of here. He denies any current chest pain, shortness a breath, nausea, vomiting, diarrhea constipation. Patient also states that he has no pain. Dressing is dry and intact. Collaborated with General surgery for discharge planning. Patient should be able to discharge tomorrow. 10/20/22 9523 Tremayne states he is continuing to feel improved.? He states less redness and edgar
[2022-10-21 13:39] VITALS: BP 137/68; PULSE 53; RESP 20; TEMP 36.5; O2SAT 99
[2022-10-21] MEDS: oxyCODONE/ACETAMINOPHEN (*CRX) 10-325 MG TABLET 1 TAB PO ×2 (13:45→21:48)
--- NOTE | 2022-10-21 17:03 | PM.PNGS ---
Progress Note: A&P Assessment and Plan (1) Infected puncture wound of plantar aspect of foot: Qualifiers: Encounter type: initial encounter Laterality: left Qualified Code(s): S91.332A - Puncture wound without foreign body, left foot, initial encounter; L08.9 - Local infection of the skin and subcutaneous tissue, unspecified Code(s): S91.339A - Puncture wound without foreign body, unspecified foot, initial encounter; L08.9 - Local infection of the skin and subcutaneous tissue, unspecified Status: Acute Assessment and Plan: doing well, cont local wound care, abx, ok to dc home c f/u in wound care center Subjective Subjective Date/Time Seen: 10/21/22 17:03 Interval history: feels good, reports foot is much improved Review of Systems Review of Systems: All systems reviewed & are unremarkable except as noted in HPI and below Exam Const: General: cooperative, comfortable and no acute distress Resp: Auscultation: clear to auscultation bilaterally Cardio: Rate: regular rate Rhythm: regular rhythm GI: Inspection: normal to inspection and non-distended Neuro: General: patient oriented x3 and CN's II-XI intact bilaterally Extrem: Other: foot - cellulitis and inflammation largely resolved, skin sloughing c no s/s active drainage/infection Objective Data Vital Signs Vital Signs: Vital Signs - 24 hr 10/20/22 20:00 10/20/22 21:58 10/20/22 23:16 Temperature 36.3 C L Pulse Rate 66 72 Respiratory Rate 18 Blood Pressure 124/65 Pulse Oximetry 99 98 Oxygen Delivery Room Air CPAP 10/21/22 06:00 10/21/22 08:00 10/21/22 13:39 Temperature 36.4 C 36.5 C Pulse Rate 75 53 L Respiratory Rate 20 20 Blood Pressure 149/71 H 137/68 Pulse Oximetry 100 96 99 Oxygen Delivery Room Air Intake/Output Intake/Output: Intake & Output 10/18/22 10/19/22 10/20/22 10/21/22 23:59 23:59 23:59 23:59 Intake Total 2844 2900 2810 686 Output Total 200 Balance 2844 2900 2610 686 Meds/Results Medications: Active Medications Generic Name Dose Route Start Last Admin Trade Name Freq PRN Reason Stop Dose Admin Hydrocodone Bitart/Acetaminophen 1.5 tab 10/14/22:48 10/20/22 17:27 Hydrocodone/Acetaminophen (*Crx) 10-325 Mg Tablet PO 1.5 tab Q6H PRN Administration pain 4-6 Allopurinol 100 mg 10/14/22 11:00 10/21/22 09:40 Allopurinol 100 Mg Tablet PO 100 mg DAILY GAMAL Administration Apixaban 5 mg 10/14/22 17:00 10/21/22 09:41 Apixaban 5 Mg Tablet PO 5 mg BID GAMAL Administration Furosemide 20 mg 10/14/22 11:00 10/21/22 09:41 Furosemide 20 Mg Tablet PO 20 mg QAM GAMAL Administration Home Med 1 each 10/15/22 17:00 10/21/22 12:22 (Tranylcypromine 10 Mg Tablet) Home Med PO 11/14/22 16:59 1 each TID GAMAL Administration Vancomycin HCl 1,750 mg in 500 mls @ 250 mls/hr 10/17/22 15:00 10/21/22 09:42 Vancomycin 1,750 Mg/D5w 500 Ml IVPB 250 mls/hr Q18H GAMAL Administration Cefepime HCl 2 gm in 50 mls @ 100 mls/hr 10/17/22 18:00 10/21/22 06:12 Maxipime 2 Gm/Ns 50 Ml IVPB Infused Q12H GAMAL Infusion Losartan Potassium 100 mg 10/14/22 11:00 10/21/22 09:41 Losartan Potassium 100 Mg Tablet PO 100 mg DAILY GAMAL Administration Melatonin 5 mg 10/20/22 02:13 10/20/22 02:47 Melatonin 5 Mg Tablet PO 5 mg HS PRN Administration Insomnia Nifedipine 30 mg 10/14/22 13:00 10/21/22 12:21 Nifedipine 30 Mg Tab.Er.24 PO 30 mg TID GAMAL Administration Oxycodone/Acetaminophen 1 tab 10/14/22 09:48 10/21/22 13:45 Oxycodone/Acetaminophen (*Crx) 10-325 Mg Tablet PO 1 tab Q6H PRN Administration pain 7-10 Pramipexole Dihydrochloride 0.75 mg 10/14/22 21:00 10/20/22 20:06 Pramipexole 0.25 Mg Tablet PO 0.75 mg QHS GAMAL Administration Prochlorperazine Edisylate 10 mg 10/14/22 14:16 10/19/22 16:48 Prochlorperazine Edisylate 10 Mg/2 Ml Vial IV PUSH 10 mg Q6H PRN Adm
[2022-10-21] MEDS: HYDROcodone/acetaminophen (*CRX) 10-325 MG TABLET 1.5 TAB PO (17:22)
[2022-10-21 21:15] VITALS: PULSE 72; O2SAT 98
[2022-10-21] MEDS: PRAMIPEXOLE 0.25 MG TABLET 0.75 MG PO (21:48)
[2022-10-21 22:00] VITALS: PULSE 72; RESP 20; TEMP 36.9; O2SAT 99
[2022-10-22 06:00] VITALS: BP 129/61; PULSE 53; RESP 20; TEMP 36.7; O2SAT 100
[2022-10-22] MEDS: CEFEPIME 2 GM/NS 50 ML 2 GM/50 ML BAG IVPB (06:08)
[2022-10-22 07:06] LABS: Basophils Percent Auto 0.6 % (0.2-1.2); Eosinophils Absolute Auto 0.3 K/mm3 (0-0.3); Eosinophils Percent Auto 4.1 % (0-4.4); Hematocrit 36.4 % (42.0-52.0); Hemoglobin 11.5 g/dL (14.0-18.0); Immature Granulocyte Absolute 0.03 K/mm3 (0.00-0.031); Immature Granulocyte Percent A 0.4 % (0-0.5); Lymphocytes Absolute Auto 1.14 K/mm3 (0.9-3.2); Lymphocytes Percent Auto 16.7 % (18.3-44.2); Mean Corpuscular HGB Conc 31.6 g/dl (32-36); Mean Corpuscular Volume 91.9 fl (80-100); Mean Platelet Volume 10.1 fl (7.4-10.4); Monocytes Absolute Auto 0.6 K/mm3 (0.1-0.6); Monocytes Percent Auto 8.9 % (2.6-8.5); Neutrophils Absolute Auto 4.7 K/mm3 (1.3-6.7); Neutrophils Percent Auto 69.3 % (45.5-73.1); Platelet Count Result 198 k/mm3 (150-375); Red Blood Count 3.96 M/mm3 (4.6-6.20); Red Cell Distribution Width 12.8 % (11.5-14.5); White Blood Count 6.8 K/mm3 (4.5-10.0)
[2022-10-22 07:08] LABS: Anion Gap 7 mmol/L (8-16); Blood Urea Nitrogen 19 mg/dL (9-20); Calcium 8.8 mg/dL (8.4-10.2); Carbon Dioxide 28 mmol/L (22-30); Chloride 101 mmol/L (98-107); Estimated CRCL calculation 68 ml/min; Estimated Glomerular Filt Rate 56; Glucose 98 mg/dL (65-110); Potassium 4.1 mmol/L (3.4-5.0); Sodium 136 mmol/L (137-145)
--- NOTE | 2022-10-22 09:00 | P.DS_ITS ---
DS: Admitting Diagnosis Discharge Date 10/22/22 0900 Admitting Diagnosis Cellulitis of the left foot DS: Discharge Diagnosis Discharge Diagnosis (1) Infected puncture wound of plantar aspect of foot: Qualifiers: Encounter type: initial encounter Laterality: left Qualified Code(s): S91.332A - Puncture wound without foreign body, left foot, initial encounter; L08.9 - Local infection of the skin and subcutaneous tissue, unspecified Code(s): S91.339A - Puncture wound without foreign body, unspecified foot, initial encounter; L08.9 - Local infection of the skin and subcutaneous tissue, unspecified Status: Acute Assessment and Plan: * Presented to the ED with complaints of left foot infection * CT of the foot 8 mm radiopaque foreign body plantar to second proximal phalanx * Foot xray 8 mm radiopaque foreign body plantar to second proximal phalanx, no osteomyelitis * MRI soft tissue infection with associated ulcer/laceration/draining abscess at the plantar aspect of the foot at the region of the proximal phalanx, no osteomyelitis * General surgery consulted * Continue cefepime and vancomycin, change to Bactrim * completed 9 days of therapy * WBC stable * continue wound care as instructed * Seems to be resolving (2) JOSUÉ (acute kidney injury): Code(s): N17.9 - Acute kidney failure, unspecified Status: Acute Assessment and Plan: * Creatinine elevated 1.8 * Most likely related to medication * Seems to be trending down currently at * Renal ultrasound possible stones, no hydronephrosis * Continue to to trend creatinine * avoid nephrotoxic medications * renal adjust medications (3) Chronic CHF: Qualifiers: Heart failure type: diastolic Qualified Code(s): I50.32 - Chronic diastolic (congestive) heart failure Code(s): I50.9 - Heart failure, unspecified Status: Acute Assessment and Plan: * Chronic diastolic heart failure * Echo showed 55-60% with a grade 3 diastolic heart failure * Continue home furosemide, nifedipine, sotalol, losartan * Trend urine output * Daily weights (4) Essential (primary) hypertension: Code(s): I10 - Essential (primary) hypertension Status: Acute Assessment and Plan: * Blood pressure stable 129/61 * Continue home medications. * Trend BP * Adjust BP as indicated (5) Sleep apnea in adult: Code(s): G47.30 - Sleep apnea, unspecified Status: Acute Assessment and Plan: * CPAP still present at bedside (6) Chronic atrial fibrillation: Code(s): I48.20 - Chronic atrial fibrillation, unspecified Status: Acute Assessment and Plan: * regular rhythm with rate 70s, telemetry has been discontinued. * Continue home medications * Adjust therapy as indicated * Continue to trend HR (7) Anticoagulant long-term use: Code(s): Z79.01 - alf (current) use of anticoagulants Status: Acute Assessment and Plan: * anticoagulation restarted per surgery recommendations * Taking for Afib (8) Foreign body foot/toe: Status: Acute Assessment and Plan: * surgery did not want to intervene * Wound care consult has been completed * MRI no osteomyelitis (9) Prediabetes:
--- NOTE | 2022-10-22 09:00 | PM.DS ---
DS: Admitting Diagnosis Discharge Date 10/22/22 0900 Admitting Diagnosis Cellulitis of the left foot DS: Discharge Diagnosis Discharge Diagnosis (1) Infected puncture wound of plantar aspect of foot: Qualifiers: Encounter type: initial encounter Laterality: left Qualified Code(s): S91.332A - Puncture wound without foreign body, left foot, initial encounter; L08.9 - Local infection of the skin and subcutaneous tissue, unspecified Code(s): S91.339A - Puncture wound without foreign body, unspecified foot, initial encounter; L08.9 - Local infection of the skin and subcutaneous tissue, unspecified Status: Acute Assessment and Plan: Presented to the ED with complaints of left foot infection CT of the foot 8 mm radiopaque foreign body plantar to second proximal phalanx Foot xray 8 mm radiopaque foreign body plantar to second proximal phalanx, no osteomyelitis MRI soft tissue infection with associated ulcer/laceration/draining abscess at the plantar aspect of the foot at the region of the proximal phalanx, no osteomyelitis General surgery consulted Continue cefepime and vancomycin, change to Bactrim completed 9 days of therapy WBC stable continue wound care as instructed Seems to be resolving (2) JOSUÉ (acute kidney injury): Code(s): N17.9 - Acute kidney failure, unspecified Status: Acute Assessment and Plan: Creatinine elevated 1.8 Most likely related to medication Seems to be trending down currently at Renal ultrasound possible stones, no hydronephrosis Continue to to trend creatinine avoid nephrotoxic medications renal adjust medications (3) Chronic CHF: Qualifiers: Heart failure type: diastolic Qualified Code(s): I50.32 - Chronic diastolic (congestive) heart failure Code(s): I50.9 - Heart failure, unspecified Status: Acute Assessment and Plan: Chronic diastolic heart failure Echo showed 55-60% with a grade 3 diastolic heart failure Continue home furosemide, nifedipine, sotalol, losartan Trend urine output Daily weights (4) Essential (primary) hypertension: Code(s): I10 - Essential (primary) hypertension Status: Acute Assessment and Plan: Blood pressure stable 129/61 Continue home medications. Trend BP Adjust BP as indicated (5) Sleep apnea in adult: Code(s): G47.30 - Sleep apnea, unspecified Status: Acute Assessment and Plan: CPAP still present at bedside (6) Chronic atrial fibrillation: Code(s): I48.20 - Chronic atrial fibrillation, unspecified Status: Acute Assessment and Plan: regular rhythm with rate 70s, telemetry has been discontinued. 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 Plan DS: Summary Hospital Course Hospital Course: patient is 66-year-old male with a past medical history of prediabetes, lymphedema, peripheral neuropathy, morbid obesity, KARL, hypertension, gout who presented to the ED with complaints of left foot infection. Patient was out playing in water when he stepped on something and his foot got increasingly worse with infection swelling. General surgery was consulted upon arrival. CT of the foot showed 8 mm radiopaque foreign body. Foot x-ray did confirm the s
[2022-10-22] MEDS: allopurinoL 100 MG TABLET PO (09:50)
[2022-10-22] MEDS: FUROSEMIDE 20 MG TABLET PO (09:50)
[2022-10-22] MEDS: NIFEdipine 30 MG TAB.ER.24 PO (09:50)
[2022-10-22] MEDS: LOSARTAN POTASSIUM 100 MG TABLET PO (09:50)
[2022-10-22] MEDS: APIXABAN 5 MG TABLET PO (09:50)
[2022-10-22] MEDS: SULFAMETHOXAZOLE/TRIMETHOPRIM 800/160 MG DS TABLET 1 TAB PO (09:50)
[2022-10-22] MEDS: SILVERGEL (ELTA) 45 ML 1 APPLIC TOPICAL (09:52)
[2022-10-22] MEDS: oxyCODONE/ACETAMINOPHEN (*CRX) 10-325 MG TABLET 1 TAB PO (09:58)
--- NOTE | 2022-10-22 11:42 | PM.PNGS ---
Progress Note: A&P Assessment and Plan (1) Infected puncture wound of plantar aspect of foot: Qualifiers: Encounter type: initial encounter Laterality: left Qualified Code(s): S91.332A - Puncture wound without foreign body, left foot, initial encounter; L08.9 - Local infection of the skin and subcutaneous tissue, unspecified Code(s): S91.339A - Puncture wound without foreign body, unspecified foot, initial encounter; L08.9 - Local infection of the skin and subcutaneous tissue, unspecified Status: Acute Assessment and Plan: Continues to improve with local wound care. Okay to discharge home today with oral antibiotics. Follow up [facility] [place] [address] العلي. Continue wound care on discharge, which was discussed in detail with the patient. His will help him with cleaning his foot and dressing changes. Also asked nursing get a postop shoe prior to discharge for ambulation. Plan I have discussed the patient's case and plan of care with Dr. العلي. Subjective Subjective Date/Time Seen: 10/22/22 11:42 Patient reports: no new complaints, feels better and afebrile Interval history: Patient doing well today. Overall redness and swelling nearly resolved. No new complaints. Review of Systems Review of Systems: ROS unchanged Exam Narrative: Left foot with erythema and swelling much improved, small open wound on the plantar aspect of the foot with no purulence drainage, no fluctuance. Palpable DP and PT pulses Const: General: comfortable and no acute distress Orientation/consciousness: patient oriented x3 Objective Data Vital Signs Vital Signs: Vital Signs - 24 hr 10/21/22 13:39 10/21/22 21:15 10/21/22 22:00 Temperature 97.7 F 98.5 F Pulse Rate 53 L 72 72 Respiratory Rate 20 20 Blood Pressure 137/68 Pulse Oximetry 99 98 99 Oxygen Delivery CPAP 10/21/22 20:00 10/22/22 06:00 10/22/22 08:00 Temperature 98.0 F Pulse Rate 53 L Respiratory Rate 20 Blood Pressure 129/61 Pulse Oximetry 100 Oxygen Delivery Room Air Room Air Intake/Output Intake/Output: Intake & Output 10/19/22 10/20/22 10/21/22 10/22/22 23:59 23:59 23:59 23:59 Intake Total 2900 2810 1476 1480 Output Total 200 Balance 2900 2610 1476 1480 Meds/Results Medications: Active Medications Generic Name Dose Route Start Last Admin Trade Name Freq PRN Reason Stop Dose Admin Hydrocodone Bitart/Acetaminophen 1.5 tab 10/14/22 09:48 10/21/22 17:22 Hydrocodone/Acetaminophen (*Crx) 10-325 Mg Tablet PO 1.5 tab Q6H PRN Administration pain 4-6 Allopurinol 100 mg 10/14/22 11:00 10/22/22 09:50 Allopurinol 100 Mg Tablet PO 100 mg DAILY GAMAL Administration Apixaban 5 mg 10/14/22 17:00 10/22/22 09:50 Apixaban 5 Mg Tablet PO 5 mg BID GAMAL Administration Furosemide 20 mg 10/14/22 11:00 10/22/22 09:50 Furosemide 20 Mg Tablet PO 20 mg QAM GAMAL Administration Home Med 1 each 10/15/22 17:00 10/22/22 09:52 (Tranylcypromine 10 Mg Tablet) Home Med PO 11/14/22 16:59 1 each TID GAMAL Administration Losartan Potassium 100 mg 10/14/22 11:00 10/22/22 09:50 Losartan Potassium 100 Mg Tablet PO 100 mg DAILY GAMAL Administration Melatonin 5 mg 10/20/22 02:13 10/20/22 02:47 Melatonin 5 Mg Tablet PO 5 mg HS PRN Administration Insomnia Nifedipine 30 mg 10/14/22 13:00 10/22/22 09:50 Nifedipine 30 Mg Tab.Er.24 PO 30 mg TID GAMAL Administration Oxycodone/Acetaminophen 1 tab 10/14/22 09:48 10/22/22 09:58 Oxycodone/Acetaminophen (*Crx) 10-325 Mg Tablet PO 1 tab Q6H PRN Administration pain 7-10 Pramipexole Dihydrochloride 0.75 mg 10/14/22 21:00 10/21/22 21:48 Pramipexole 0.25 Mg Tablet PO 0.75 mg QHS GAMAL Administration Prochlorperazine Edisylate 10 mg 10/14/22 14:16 10/19/22 16:48 Prochlorperazine Edisylate 10 Mg/2 Ml Vial IV PUSH 10 mg Q6H PRN Administrati
== END 2022-10-22 13:45 | disposition home or self-care (01) | DRG 914 ==
LOC: ANHED 10-14 04:31 → ANH3MEDSUR 10-14 04:55
PROVIDERS: Nurse Practitioner; Admitting Provider Internal Medicine; Emergency Provider Emergency Medicine; PCP Family Medicine; Visit Provider Nurse Practitioner
DX: S91.342A Puncture wound with foreign body, left foot, initial encounter (principal); L03.116 Cellulitis of left lower limb; L02.612 Cutaneous abscess of left foot; I48.20 Chronic atrial fibrillation, unspecified; I50.32 Chronic diastolic (congestive) heart failure; Z68.41 Body mass index [BMI] 40.0-44.9, adult; N17.8 Other acute kidney failure; T36.8X5A Adverse effect of other systemic antibiotics, initial encounter; T36.0X5A Adverse effect of penicillins, initial encounter; E66.01 Morbid (severe) obesity due to excess calories; I11.0 Hypertensive heart disease with heart failure; I89.0 Lymphedema, not elsewhere classified; G47.30 Sleep apnea, unspecified; R73.03 Prediabetes; G62.9 Polyneuropathy, unspecified; G47.33 Obstructive sleep apnea (adult) (pediatric); M10.9 Gout, unspecified; G25.81 Restless legs syndrome; M19.90 Unspecified osteoarthritis, unspecified site; Z79.01 Long term (current) use of anticoagulants
CPT/HCPCS: 36415; 71045; 73630; 73660; 73701; 73720; 76775; 80048; 80053; 80202; 81001; 83036; 83605; 83735; 83880; 84484; 85025; 85610; 85730; 87040; 87070; 87077; 87147; 87181; 87186; 87205; 87637; 93005; 96365; 96367; 99285; A9270; A9577; C8929; J0692; J0780; J1836; J1940; J2543; J3370; J7030; Q9957; Q9967

== ENCOUNTER 2023-02-26 10:08 | Outpatient (CLI) | payer OTHER, SELFPAY ==
[2023-02-26 13:13] LABS: Basophils Percent Auto 0.6 % (0.2-1.2); Eosinophils Absolute Auto 0.2 K/mm3 (0-0.3); Eosinophils Percent Auto 4.1 % (0-4.4); Hemoglobin 13.3 g/dL (14.0-18.0); Immature Granulocyte Absolute 0.01 K/mm3 (0.00-0.031); Immature Granulocyte Percent A 0.2 % (0-0.5); Lymphocytes Absolute Auto 1.01 K/mm3 (0.9-3.2); Lymphocytes Percent Auto 18.7 % (18.3-44.2); Mean Corpuscular HGB Conc 31.7 g/dl (32-36); Mean Corpuscular Hemoglobin 28.2 pg (26-34); Mean Platelet Volume 11.1 fl (7.4-10.4); Monocytes Percent Auto 17.6 % (2.6-8.5); Neutrophils Absolute Auto 3.2 K/mm3 (1.3-6.7); Neutrophils Percent Auto 58.8 % (45.5-73.1); Platelet Count Result 139 k/mm3 (150-375); Red Blood Count 4.72 M/mm3 (4.6-6.20); Red Cell Distribution Width 13.9 % (11.5-14.5); White Blood Count 5.4 K/mm3 (4.5-10.0)
[2023-02-26 13:19] LABS: Alanine Aminotransferase 19 U/L (6-50); Albumin Level 4.2 g/dL (3.5-5.1); Alkaline Phosphatase 104 U/L (38-126); Anion Gap 9 mmol/L (8-16); Aspartate Amino Transferase 42 U/L (17-59); Bilirubin,Total 0.7 mg/dL (0.2-1.3); Blood Urea Nitrogen 33 mg/dL (9-20); Calcium 9.1 mg/dL (8.4-10.2); Carbon Dioxide 26 mmol/L (22-30); Chloride 100 mmol/L (98-107); Cholesterol 117 mg/dL (0-200); Estimated Glomerular Filt Rate 55; Glucose 109 mg/dL (65-110); HDL Direct 26 mg/dL; Potassium 4.6 mmol/L (3.4-5.0); Sodium 135 mmol/L (137-145); Triglycerides 111 mg/dL (<150)
[2023-02-26 13:30] LABS: LDL Cholesterol Direct 67 mg/dL
[2023-02-26 13:50] LABS: Prostate Specific Antigen 0.8 ng/mL (< OR = 4.0)
[2023-02-26 13:54] LABS: Hemoglobin A1C 5.2 % (<5.7)
[2023-03-02 15:14] LABS: Testosterone Free 51.3 pg/mL (35.0-155.0); Testosterone Total 471 ng/dL (250-1100)
[2023-03-03 23:22] LABS: Estriol <0.10 ng/mL
== END 2023-02-26 10:09 | disposition home or self-care (01) ==
PROVIDERS: PCP Family Medicine; Visit Provider Family Medicine
DX: R73.03 Prediabetes (principal); I10 Essential (primary) hypertension; D75.1 Secondary polycythemia; N52.8 Other male erectile dysfunction; E29.1 Testicular hypofunction; Z13.220 Encounter for screening for lipoid disorders; Z12.5 Encounter for screening for malignant neoplasm of prostate; Z79.890 Hormone replacement therapy
CPT/HCPCS: 36415; 80053; 80061; 82677; 83036; 84153; 84402; 84403; 85025; G0103

== ENCOUNTER 2023-04-29 14:01 | Outpatient (RCR) | payer OTHER, SELFPAY ==
--- NOTE | 2023-04-29 16:14 | PTOPEVAL1 ---
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 He started lifting in October after a few years off. Notes that he has been struggling a lot with pushing exercises and overhead activity. Has a history of a lot of shoulder injuries and pain. No surgical history on shoulders. He has had to stop weightlifting art this time. On left side pain is radiating all the way down into his wrist . Reported Pain Level Pain Score 1,3: Self Report Assessment PT Clinical Summary Patient presents with elvin shoulder mobility restrictions and active case of extensor tendonitis of left elbow. Will benefit from skilled therapy to address ROM and strength deficits to restore functional activity pain free. Plan of Care Interventions Electrical Stimulation,Gait Training,Manual Therapy,Neuro Re-education,Therapeutic Activities, Therapeutic Exercise PT Services Indicated Yes Treatment Frequency and 2x/week for 8 visits Duration These treatments will address the objective and functional deficits as defined above. The patient will be advanced safely and appropriately in order for the patient to progress towards his/her prior level of function. Additional exercises will be introduced and as well as a comprehensive home exercise program upon discharge, if needed, ?to ensure carryover of functional gains achieved in the clinic. This treatment plan has been reviewed and agreement upon by the patient.
--- NOTE | 2023-04-29 16:14 | OPREHPOC ---
Outpatient Therapy Plan of Care This is a Multidisciplinary Plan of Care that may contain components documented by all disciplines (PT, OT, and ST.) PT Problem 1 PT Problem #1 Knowledge Deficit PT Goal 1 Goal [place] with HEP Target Visit 4 PT Problem 2 PT Problem #2 Pain PT Goal 1 Goal Demonstrate no palpable tenderness to left elbow extensor complex Target Visit 8 PT Problem 3 PT Problem #3 Impaired Flexibility PT Goal 1 Goal Demonstrate 160 degrees of elvin shoulder flexion ROM for improve active reach and reduce impingement Target Visit 8 PT Goal 2 Goal Improve elvin shoulder external rotation motion to 80 degrees to improve postural control and functional reach to reduce stress on elbow Target Visit 8 PT Problem 4 PT Problem #4 Impaired Strength PT Goal 1 Goal Improve L wrist extension strength to 5/5 pain free Target Visit 8
--- NOTE | 2023-05-16 12:34 | PCPTNOTE ---
Patient was a No Show 30+ minutes late for today's appointment.
--- NOTE | 2023-06-03 10:23 | PTOPDC ---
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 He started lifting in October after a few years off. Notes that he has been struggling a lot with pushing exercises and overhead activity. Has a history of a lot of shoulder injuries and pain. No surgical history on shoulders. He has had to stop weightlifting art this time. On left side pain is radiating all the way down into his wrist . Assessment PT Clinical Summary Patient has failed to return to therapy at this time. Was contacted by myself and front office staff about his intent to continue therapy and reported that he planned to return on 05/27/23. He has had 5 consecutive No Shows and will be discharged from skilled therapy at this time. Please refer to evaluation for discharge status. Plan of Care PT Services Indicated D/C to HEP
== END 2023-06-03 11:10 | disposition home or self-care (01) ==
LOC: ANHGOSHPT 14:01
PROVIDERS: PCP Family Medicine; Visit Provider Family Medicine
DX: M25.522 Pain in left elbow (principal)
CPT/HCPCS: 97110; 97140; 97161; 99199

== ENCOUNTER 2023-05-16 11:53 | Outpatient (CLI) | payer OTHER, SELFPAY | END 2023-05-16 11:54 | disposition home or self-care (01) | LOC: ANHGOSHLAB 11:55 | PROVIDERS: PCP Family Medicine; Visit Provider Internal Medicine Critical Care Medicine | DX: G25.81 Restless legs syndrome (principal) | CPT/HCPCS: 36415; 82728 ==

== ENCOUNTER 2023-12-17 11:32 | Outpatient (CLI) | payer OTHER, SELFPAY ==
[2023-12-17 21:26] LABS: Potassium 4.2 mmol/L (3.4-5.0)
[2023-12-17 21:32] LABS: Anion Gap 8 mmol/L (4-12); Blood Urea Nitrogen 23 mg/dL (9-20); Carbon Dioxide 26 mmol/L (22-30); Chloride 102 mmol/L (98-107); Estimated Glomerular Filt Rate > 60; Glucose 116 mg/dL (65-110); Sodium 136 mmol/L (137-145)
== END 2023-12-17 11:33 | disposition home or self-care (01) ==
LOC: ANHGOSHLAB 11:34
PROVIDERS: PCP Family Medicine; Visit Provider Family Medicine
DX: Z13.228 Encounter for screening for other metabolic disorders (principal)
CPT/HCPCS: 36415; 80048

== ENCOUNTER 2024-03-08 14:19 | Outpatient (CLI) | payer OTHER, SELFPAY ==
--- OUTSIDE RECORDS SUMMARY | 2024-03-08 15:15 | XMS_ITS | Encounter Summary ---
Author Organization [facility] Address 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
--- OUTSIDE RECORDS SUMMARY | 2024-03-08 15:15 | XMS_ITS | Continuity of Care Document ---
Author Organization [facility] Address [address] [place] [address] Phone Care Team Providers Care Security Escort Name Role Phone Unavailable Unavailable Unavailable Advance Directives Directive Yes / No Effective Date File Name No Information Encounters Encounter Description Practice Location Reason(s) For Visit Diagnoses Date Provider Providers Copied on Encounter [facility], [address], [place], [place], [id number] , [place] tel: [phone] [facility] No Information 9200 6 No Information [facility], [address], [place], [place], [id number] , [place] tel: [phone] [facility] [address] No Information [facility], [address], [place], [place], [id number] , [place] tel: [phone] [facility] SCRN MALIG NEOP-PROSTATEGOUT NOSABN BLOOD CHEMISTRY NECHYPERLIPIDEMIA NEC/NOS 200 4 No Information Family History Family Member Type Diagnosis Age At Onset No Information Payers Payer name Insurance type Covered libertarian ID Authoriza tion(s) No Information Social History Type Description Quantity Date Captured Comments Sex Male Smoking Status No Information Chief Complaint And Reason For Visit No Information Reason For Referral Reason For Referral No Information History Of Present Illness Encounter Date Complaint History Of Prese nt Illness No Information Functional Status Date Functional Assessmen t No Information Instructions Date Instruction Additional Infor mation No Information Assessments Type Assessment Date No Information Patient Care Teams Name Effective Dates (start - stop) Status Members No Information
--- OUTSIDE RECORDS SUMMARY | 2024-03-08 15:15 | XMS_ITS | Clinical Summary ---
Author Organization [address] Address [address] [place] [address] Care Team Providers Care Financial Compliance Manager Name Role Phone Edi Geronimo Primary Care Provider [phone] Mohsen Tran MD Unavailable [phone] Allergies No known active allergies Medications oxyCODONE-acetam inophen (PERCOCET) 10-325 mg per tabletIndication s:Pain Take 1 tablet by mouth every 8 (eight) hours as needed 02/13/19 18 Active tranylcypromine (PARNATE) 10 mg tabletIndication s:major depressive disorder Take 1 tablet (10 mg total) by mouth 3 (three) times a day Patient taking once daily Active allopurinol (ZYLOPRIM) 300 mg tabletIndication s:prevention of acute gout attack Take 1 tablet (300 mg total) by mouth daily Active apixaban (ELIQUIS) 5 mg tabletIndication s:atrial fibrillation Take 1 tablet (5 mg total) by mouth 2 (two) times a day Active nystatin cream Apply 1 Application topically as needed Active semaglutide (Wegovy) 2.4 mg/0.75 mL auto-injector Inject 0.75 mL (2.4 mg total) under the skin every 7 days Active TESTOSTERONE CYPIONATE IM Inject 20 mg into the muscle as instructed 2 (two) times a week Active SERMORELIN ACETATE, BULK, MISC 1 Dose daily (dose unknown) Active metoprolol XL (TOPROL-XL) 25 mg extended release tablet Take 1 tablet (25 mg total) by mouth daily 30 tablet 11/21/19 24 Active amiodarone (PACERONE) 200 mg tablet Take 1 tablet (200 mg total) by mouth daily 12/19/19 24 Active furosemide (LASIX) 40 mg tablet Take 1 tablet (40 mg total) by mouth daily 90 tablet 3 02/16/19 25 Active NIFEdipine (NIFEdipine XL) 30 mg 24 hr tablet Take 1 tablet (30 mg total) by mouth 3 (three) times a day 270 tablet 3 03/01/19 25 Active NIFEdipine (NIFEdipine XL) 30 mg 24 hr tablet Take 1 tablet (30 mg total) by mouth 3 (three) times a day 025 Discontin ued(Reord er) furosemide (LASIX) 40 mg tablet Take 1 tablet (40 mg total) by mouth daily 30 tablet 11/21/19 24 025 Discontin ued(Reord er) Active Problems Problem Noted Date Diagnosed Date Valvular insufficiency 11/20/2023 Hypertension 11/20/2023 JOSUÉ (acute kidney injury) 11/19/2023 Accelerated hypertension 10/13/2017 Thrombocytopenia 10/13/2017 Chronic diastolic congestive heart failure (CMS/ HCC) 10/13/2017 Assessment & Plan (12/31/2023 1:55 PM WAIST PRESSER): Mild peripheral edema. Patient believes there has been a mild increase in his weight but no where near the extent of his previous weight gain. Advised him that if his weight increases over 3-5 lb in the over a short interval that he should take an additional dose of Lasix for 2 or 3 days until his weight returns to baseline. Also emphasized the benefit of him taking a daily diuretic. Consider Farxiga or Jardiance. Chest pain 10/13/2017 Chronic alcohol use 10/13/2017 Open wound 10/13/2017 Primary osteoarthritis of left knee 07/18/2017 Overview (07/18/2017): Added automatically from request for surgery [id number] Palpitations 07/14/2017 Assessment & Plan (07/14/2017 3:48 AM CDT): Resolved. Patient had AFib on EKG. Chads Vasc is 1-2 for hypertension. Patient may or may not have CHF. He states his canadian bacon tier does not believe he has CHF. If chads Vasc is 1 he is at low risk for thrombosis and no need for anticoagulation. He ready received therapeutic dosing of Lovenox x1 in the ED. When discussed the possibility of starting him on a medication for heart rate control if needed he stated ? I will not start anything until my doctor tells me to? . As he is currently in a regular heart rhythm patient can follow up with his canadian bacon tier to discuss treatment options. Patient states his canadian bacon tier is already aware that he is here. Cellulitis of right lower extremity 07/14/2017 Assessment & Plan (07/14/2017 3:48 AM CDT): Continue his home antibiotics of Ceftin air and Flagyl. Opioid abuse 06/26/2013 Overview (05/15/2016): OPIOID ABUSE-UNSPEC Gout 06/26/2013 Overview (05/15/2016): GOUT NOS Assessment & Plan (07/14/2017 3:45 AM CDT): Continue allopurinol Obstructive sleep apnea syndrome 06/26/2013 Overview (05/15/2016): OBSTRUCTIVE SLEEP APNEA Generalized osteoarthritis 06/26/2013 Overview (05/15/2016): GENERAL OSTEOARTHROSIS Adiposity 06/26/2013 Overview (05/15/2016): OBESITY NOS Benign essential HTN 06/26/2013 Overview (05/16/2016): BENIGN HYPERTENSION Assessment & Plan (07/14/2017 3:47 AM CDT): Continue losartan with hold parameters. Patient has episodes of uncontrolled blood pressure which could be due to the fact that patient has been walking around the unit or that he had 4 Rupert Sullivan sandwhiches last evening. Will continue to monitor and adjust as needed. Morbid obesity 07/05/2008 Overview (05/15/2016): MORBID OBESITY Paroxysmal atrial fibrillation ([facility]) Assessment & Plan (12/31/2023 1:55 PM WAIST PRESSER): Atrial fibrillation has returned. Continue amiodarone and Eliquis. To receive his care elsewhere. Resolved Problems Problem Noted Date Diagnosed Date Resolved Date PAF (paroxysmal atrial fibri llation) ([facility]) 11/20/2023 12/31/2023 Acute on chronic diastolic C HF (congestive heart failure) ([facility]) 11/20/2023 12/31/2023 CHF (congestive heart failur e), NYHA class II, acute on chronic, diastolic 11/20/2023 12/31/19 Acute congestive heart failure ([facility]) 11/19/2023 12/31/2023 Chronic atrial fibrillation 11/19/2023 12/31/2023 Acute on chronic diastolic c ongestive heart failure ([facility]) 11/19/2023 12/31/2023 History of atrial fibrillation 10/13/2017 10/13/2017 Encounters Date Type Department Care Team Description 12/31/2023 1:15 PM WAIST PRESSER Office Visit [facility] Cardiology [address] [address] Mohsen Tran MD Paroxysmal atrial fibrillation ([facility]) ([facility]) (Primary Dx); Chronic diastolic congestive heart failure ([facility]) (HCC) from Last 3 Months Immunizations Name Administration Dates Next Due Influenza, Trivalent, High D ose, Split, Preservative Free, Intramuscular 11/19/2023 Surgical History Surgery Date Site/Laterality Comments OTHER SURGICAL HISTORY OA right knee: arthroscopy x 4 OTHER SURGICAL HISTORY 2008 Left Side Pain: Pain Medicine Medical History Medical History Date Comments Hx Other Medical OA right knee Hx Other Medical Left Side Pain Hypertension Hypertension Hx Other Medical asthma; Comment s: 10/06/2015 - Hx Other Medical kidney stones; Comments: 10/06/2015 - CHF (congestive heart failur e) ([facility]) (HCC) Arthritis Gout Family History Medical History Relation Name Comments Gout Other 1 Family history of Gout; Arthritis Other 2 Family history of arthritis - (Added by TW Conv) Hypertension Other 3 Family history of hypertension - (Added by TW Conv) Alcohol abuse Other 4 Family history of alcoholism - (Added by TW Conv) Relation Name Status Comments Other 1 Other 2 Other 3 Other 4 Social History Tobacco Use Types Packs/Day Years Used Date Smoking Tobacco: Never Smokeless Tobacco: Never Tobacco Cessation:Counseling Given: Not Answered Alcohol Use Standard Drinks/Week Comments No 0 (1 standard drink = 0.6 oz pur e alcohol) [facility] Utilities Answer Date Recorded In the past 12 months has th e [employer], gas, oil, or water company threatened to shut off services in your home? No 11/20/2023 Social Connection and Isolat ion Panel [NHANES] Answer Date Recorded In a typical week, how many times do you talk on the phone with family, friends, or neighbors? More than three times a week 11/20/2023 How often do you get togethe r with friends or relatives? Once a week 11/20/2023 How often do you attend chur ch or pentecostal services? Never 11/20/2023 Do you belong to any clubs o r organizations such as tenriism groups, unions, fraternal or athletic groups, or school groups? No 11/20/2023 How often do you attend meet ings of the clubs or organizations you belong to? Never 11/20/2023 Are you , , di vorced, , never , or living with a partner? 11/20/2023 Overall Financial Resource Strain (CARDIA) Answe r Date Recorded How hard is it for you to pa y for the very basics like food, housing, medical care, and heating? Not hard at all 11/20/2023 Hunger Vital Sign Answer Date Recorded Within the past 12 months, y ou worried that your food would run out before you got the money to buy more. Never true 11/20/19 24 Within the past 12 months, t he food you bought just didn't last and you didn't have money to get more. Never true 11/20/2023 PRAPARE - Transportation Answer Date Re corded In the past 12 months, has l ack of transportation kept you from medical appointments or from getting medications? No 11/10 In the past 12 months, has l ack of transportation kept you from meetings, work, or from getting things needed for daily living? No 11/20/2023 Housing Stability Vital Sign Answer Khalif e Recorded In the last 12 months, was t here a time when you were not able to pay the mortgage or rent on time? No 11/20/2023 In the past 12 months, how m any times have you moved where you were living? 0 11/20/2023 At any time in the past 12 m [facility], were you homeless or living in a [facility] (including now)? No 11/20/2023 Personal Safety Answer Date Recorded Have you ever been in or are you currently in a harmful physical or emotional relationship or is someone making you feel afraid or unsafe? Denies 11/26/2023 Sex and Gender Information Value Date Recorded Sex Assigned at Not on file Legal Sex Male 1:58 AM WAIST PRESSER Gender Identity Not on file Sexual Orientation Not on file Obstetrics History Last Filed Vital Signs Vital Sign Reading Time Taken Comments Blood Pressure 122/74 12/31/2023 1:36 PM WAIST PRESSER Pulse 59 12/31/2023 1:36 PM WAIST PRESSER Temperature 37.1 ??C (98.7 ??F) 11/26/2023 2:45 PM CD T Respiratory Rate 37 11/26/2023 3:35 PM CDT Oxygen Saturation 96% 12/31/2023 1:36 PM WAIST PRESSER Inhaled Oxygen Concentration - - Weight 122.5 kg (270 lb) 12/31/2023 1:36 PM WAIST PRESSER Height 175.3 cm (5' 9 ) 12/31/2023 1:36 PM WAIST PRESSER Body Mass Index 39.87 12/31/2023 1:36 PM WAIST PRESSER Plan of Treatment Health Maintenance Due Date Last Done Comments Colon Cancer Screening-Colonoscopy 1955 Depression Screening 1955 Hepatitis C Screening 1955 Prostate Cancer Screening-PSA 1955 Hepatitis B Screening 12/04/1975 DTaP/Tdap/Td Vaccine (1 - Tdap) 02/12/1996 7 Zoster Vaccine (1 of 2) 12/04/2007 Well Visit 65+ 2022 Covid-19 Vaccine (5 - 2023-2 5 season) 2023 12/31/2022, 01/09/2021, 05/08/2020, Additional history exists Fall Risk Assessment 11/20/2024 11/21/2023 Pneumococcal vaccine 65+ Completed 12/23/2022 Influenza Vaccine Completed 11/19/2023, , 11/06/2020, Additional history exists Procedures Procedure Name Priority Date/Time Associated Diagnosis Comments ECG 12-LEAD Routine 12/31/2023 1:46 PM WAIST PRESSER Paroxysmal atrial fibrillation (CMS/HCC) (HCC) from Last 3 Months Results * ECG 12 lead (12/31/2023 1:46 PM WAIST PRESSER) us Mohsen Tran MD ECG ORDERABLES Edited Result - Final from Last 3 Months Insurance [facility] H[facility]/PPO Address: [address] [address] [facility] H[facility]/PPO Address: [facility] [address] [place] [address] Advance Directives For more information, please contact: [phone] * Full Code (Latest Code Status on File) Date Activated Date Inactivated Comments 11/19/2023 2:20 PM 11/21/2023 5:01 PM * Full Code Date Activated Date Inactivated Comments 10/13/2017 8:38 AM 10/14/2017 6:16 PM * Full Code Date Activated Date Inactivated Comments 07/13/2017 12:30 PM 07/14/2017 3:39 PM Care Teams Financial Compliance Manager Relationship Specialty Start Date End Date Edi Geronimo DO [address] [facility] [address] [place] [address] PCP - General Family Medicine 11/19/23 Mohsen Tran MD [address] [place] [address] Consulting Physician Cardiology 11/21/23
--- OUTSIDE RECORDS SUMMARY | 2024-03-08 15:15 | XMS_ITS | Continuity of Care Document ---
Author Organization [facility] Address [address] [place] [address] [place] [address] Phone Care Team Providers Care Senior Data Developer Name Role Phone Bear Alston MD, FACS Unavailable Unavailab le Procedures Procedure Date Charge For A No Show Advance Directives Directive Yes / No Effective Date File Name No Information Encounters Encounter Description Practice Location Reason(s) For Visit Diagnoses Date Provider Providers Copied on Encounter [facility], [address] [facility], [place], [place], [id number], tel:[phone] [address] [place] No Information Gamaliel Sifuentes. [address] [facility], [address], [place], [place], [id number], . tel:[phone] Referring Provider: Angle Monroy OD [address] [facility], [place], [address]. tel:[phone] Family History Family Member Type Diagnosis Age At Onset No Information Payers Payer name Insurance type Covered republican ID Authoriza tion(s) No Information Social History [...]
--- OUTSIDE RECORDS SUMMARY | 2024-03-08 15:15 | XMS_ITS | Encounter Summary ---
Author Organization [facility] Address [address] [place] [address] Care Team Providers Care Field Secretary Name Role Phone Unavailable Primary Care Provider Unavailabl e Encounter Details Date Type Department Care Team (Late st Contact Info) Description 08/18/2007 Outpatient Historical [facility] Jason Helton MD [address] [place] [address] Pain in Joint, Lower Leg Social History Tobacco Use Types Packs/Day Years Used Date Smoking Tobacco: Never Assessed Sex and Gender Information Value Date Recorded Sex Assigned at Not on file Legal Sex Male 5:35 AM OYSTER FLOATER Gender Identity Not on file Sexual Orientation Not on file documented as of this encounter Plan of Treatment Not on file documented as of this encounter Procedures Procedure Name Priority Date/Time Associated Diagnosis Comments MRI KNEE WO CONTRAST RIGHT Routine 08/18/2007 12:09 PM CDT documented in this encounter Results * MRI KNEE WO CONTRAST RIGHT (08/18/2007 12:09 PM CDT) Anatomical Region Laterality Modality Lower Extremity Other 08/18/2007 12:0 9 PM CDT Narrative 08/18/2007 2:55 PM CDT ? [facility] ? [address] ?[place] ??[address] ?Admit Date: 08/18/2007 ? JOSUE, LINA ?Sex: M ?Admit Prov: JASON HELTON ? Date: 1955 ?Primary Care Prov: JASON HELTON ? CMRN: [id number] ?Room: IMGN-A ? SSN: [id number] ? IMAGING SERVICES ?Ordering Prov: N/A ? Accession Number: [id number] ?Interpretation ? EXAM: MRI OF THE RIGHT KNEE, 08/18/07 ? Indications: Knee pain. ? Technique: Coronal T1 and PD fat-sat. Sagittal PD and T2 fat-sat. Axial PD ? fat-sat. ? Findings: There is mild degenerative fraying of the central free edge of ? the body of the medial meniscus without a focal linear tear. The lateral ? meniscus is normal. The ACL, PCL, extensor mechanism and collateral ? ligaments appear normal. There is no focal marrow edema or focal cartilage ? defect. There is no joint effusion. There is a small, 1 cm, Ratliff's ? popliteal cyst. ? Impression: ? Mild degenerative fraying of the central free edge of the medial meniscus ? without focal tear. ? . ? Dictated by: ??JOSIE RAE ?08/18/2007 12:49 ? Electronically signed by: ??JOSIE RAE ?08/18/2007 14:54 ? Transcribed: ??08/18/2007 13:03 ?LE Procedure Note Josie Rae - 08/18/2007 [id number] [place], [place] [address] Admit Date: 08/18/2007 JOSUE LINA Sex: M Admit Prov: JASON HELTON Date:1955 Primary Care Prov: JASON HELTON CMRN: [id number] Room: [facility] SSN: [id number] IMAGING SERVICES Ordering Prov: N/A Interpretation EXAM: MRI OF THE RIGHT KNEE, 08/18/07 Indications: Knee pain. Technique: Coronal T1 and PD fat-sat. Sagittal PD and T2 fat-sat.Axial PD fat-sat. Findings: There is mild degenerative fraying of the central free edgeof the body of the medial meniscus without a focal linear tear. Thelateral meniscus is normal. The ACL, PCL, extensor mechanism and collateral ligaments appear normal. There is no focal marrow edema or focalcartilage defect. There is no joint effusion. There is a small, 1 cm, Ratliff's popliteal cyst. Impression: Mild degenerative fraying of the central free edge of the medialmeniscus without focal tear. . Dictated by: JOSIE RAE 08/18/2007 12:49 Electronically signed by: JOSIE RAE 08/18/2007 14:54 Transcribed: 08/18/2007 13:03 LE Jason Helton MD MR ORDERABLES Final Result documented in this encounter Visit Diagnoses Diagnosis Pain in joint, lower leg documented in this encounter
--- OUTSIDE RECORDS SUMMARY | 2024-03-08 15:15 | XMS_ITS | Referral Summary ---
Author Organization [address] Address [address] [place] [address] Care Team Providers Care Floor Winder Name Role Phone Edi Geronimo DO Primary Care Provider [phone] Mohsen Tran MD Unavailable [phone] Encounters Date Type Department Care Team Description 12/31/2023 1:15 PM INTERFACE ENGINEER Office Visit [facility] Medical [facility] Cardiology [address] [facility] [address] [place] [address] Mohsen Tran MD Paroxysmal atrial fibrillation (CMS/HCC) (HCC) (Primary Dx); Chronic diastolic congestive heart failure (CMS/HCC) (HCC) from Last 3 Months Allergies No known active allergies Medications oxyCODONE-acetam [...] 10/13/2017 Assessment & Plan (12/31/2023 1:55 PM INTERFACE ENGINEER): Mild peripheral edema. Patient believes there has [...] (07/18/2017): Added automatically from request for surgery [id number] Palpitations 07/14/2017 Assessment & Plan (07/14/2017 3:48 AM CDT): Resolved. Patient had AFib on EKG. Chads Vasc is 1-2 for hypertension. Patient may or may not have CHF. He states his electric shaver mechanic does not believe he has CHF. If [...] rhythm patient can follow up with his electric shaver mechanic to discuss treatment options. Patient states his electric shaver mechanic is already aware that he is here. [...] Overview (05/15/2016): MORBID OBESITY Paroxysmal atrial fibrillation ([facility]) Assessment & Plan (12/31/2023 1:55 PM INTERFACE ENGINEER): Atrial fibrillation has returned. Continue amiodarone and Eliquis. To receive his care elsewhere. Resolved Problems Problem Noted Date Diagnosed Date Resolved Date PAF (paroxysmal atrial fibri llation) ([facility] 11/20/2023 12/31/2023 Acute on chronic diastolic C HF (congestive heart failure) ([facility]) 11/20/2023 12/31/2023 CHF (congestive heart failur e), NYHA class II, acute on chronic, diastolic 11/20/2023 12/31/19 24 Acute congestive heart failure ([facility]) 11/19/2023 12/31/2023 Chronic atrial fibrillation 11/19/2023 12/31/2023 Acute on chronic diastolic c ongestive heart failure ([facility]) 11/19/2023 12/31/2023 History of atrial fibrillation 10/13/2017 10/13/2017 Immunizations Name Administration Dates Next Due Influenza, Trivalent, High D ose, Split, Preservative Free, Intramuscular 11/19/2023 Social History Tobacco Use Types Packs/Day Years Used Date Smoking Tobacco: Never Smokeless Tobacco: Never Tobacco Cessation:Counseling Given: Not Answered Alcohol Use Standard Drinks/Week Comments No 0 (1 standard drink = 0.6 oz pur e alcohol) [facility] Utilities Answer Date Recorded In the past 12 months has e [employer], gas, oil, or water [employer] threatened to shut off services in your [...] often do you attend chur ch or adventism services? Never 11/20/2023 Do you belong to any clubs o r organizations such as restorationism groups, unions, fraternal or athletic groups, or [...] any time in the past 12 [facility], were you homeless or living in a penitentiary (including now)? No 11/20/2023 Personal Safety Answer Date Recorded Have you ever been in or are you currently in a harmful physical or emotional relationship or is someone making you feel afraid or unsafe? Denies 11/26/2023 Sex and Gender Information Value Date Recorded Sex Assigned at Not on file Legal Sex Male 1:58 AM INTERFACE ENGINEER Gender Identity Not on file Sexual Orientation Not on file Last Filed Vital Signs Vital Sign Reading Time Taken Comments Blood Pressure 122/74 12/31/2023 1:36 PM INTERFACE ENGINEER Pulse 59 12/31/2023 1:36 PM INTERFACE ENGINEER Temperature 37.1 ??C (98.7 ??F) 11/26/2023 2:45 PM CD T Respiratory Rate 37 11/26/2023 3:35 PM CDT Oxygen Saturation 96% 12/31/2023 1:36 PM INTERFACE ENGINEER Inhaled Oxygen Concentration - - Weight 122.5 kg (270 lb) 12/31/2023 1:36 PM INTERFACE ENGINEER Height 175.3 cm (5' 9 ) 12/31/2023 1:36 PM INTERFACE ENGINEER Body Mass Index 39.87 12/31/2023 1:36 PM INTERFACE ENGINEER Plan of Treatment Not on file Procedures Procedure Name Priority Date/Time Associated Diagnosis Comments ECG 12-LEAD Routine 12/31/2023 1:46 PM INTERFACE ENGINEER Paroxysmal atrial fibrillation (CMS/HCC) (HCC) from Last 3 Months Results * ECG 12 lead (12/31/2023 1:46 PM INTERFACE ENGINEER) us Mohsen Tran MD ECG ORDERABLES Edited Result - Final from Last 3 Months Insurance [facility] H[facility]/PPO Address: [facility] [address] [place] [address] [facility] H[facility]/PPO Address: [address] [address] Advance Directives For more information, please contact: [phone] * Full Code (Latest Code Status on File) Date Activated Date Inactivated Comments 11/19/2023 2:20 PM 11/21/2023 5:01 PM * Full Code Date Activated Date Inactivated Comments 10/13/2017 8:38 AM 10/14/2017 6:16 PM * Full Code Date Activated Date Inactivated Comments 07/13/2017 12:30 PM 07/14/2017 3:39 PM Care Teams Floor Winder Relationship Specialty Start Date End Date Edi Geornimo DO [facility] [place] [address] PCP - General Family Medicine 11/19/23 Mohsen Tran MD [address] [place] [address] Consulting Physician Cardiology 11/21/23
--- OUTSIDE RECORDS SUMMARY | 2024-03-08 15:15 | XMS_ITS | Clinical Summary ---
Author Organization [facility] Address [address] [place] [address] Phone Care Team Providers Care Pulp Refiner Operator Name Role Phone Francisco Atkins MD Unavailable [phone] Cheryl Coello DEPENDENCY CASE MANAGER Unavailable [phone] Joni Summers MD Unavailable [phone] Cordelia Young DPM Unavailable [phone] Dylan Varela MD Unavailable Eriberto Boss MD Primary Care Provider [phone] Allergies Active Allergy Reactions Criticality Noted Date Comments Colchicine Nausea Reaction: nausea, Indomethacin Other (see Comments) Reaction: Other, Meloxicam Other (see Comments) Reaction: Other, Nsaids Other (see Comments) Reaction: Other, Medications aspirin EC 81 MG Tablet Delayed Response Take by mouth. Active cloNIDine (CATAPRES) 0.1 MG Tablet TK 1 T PO BID PRN 0 05/05/2017 Active allopurinol (ZYLOPRIM) 300 MG Tablet Take 300 mg by mouth 2 times daily. Active tranylcypromine (PARNATE) 10 MG Tablet Take 10 mg by mouth 3 times daily. Active oxyCODONE-Acetam inophen (PERCOCET) 10-325 MG Tablet 07/28/2017 Ac tive ELIQUIS 5 MG Tablet 1 Tab 2 times daily. 180 Tab 10/02/2017 Active losartan (COZAAR) 100 MG Tablet Take 1 Tab by mouth daily. 90 Tab 10/02/2017 Active metoprolol tartrate (LOPRESSOR) 25 MG Tablet 1 Tab 2 times daily. 180 Tab 10/02/2017 Active Active Problems Problem Noted Date Diagnosed Date PAF (paroxysmal atrial fibrillation) 08/04/2017 Gout 02/10/2017 Nonrheumatic aortic valve insufficiency 01/31/20 16 Non-rheumatic tricuspid valve insufficiency /02/2015 KARL (obstructive sleep apnea) 06/26/2013 Arthritis 06/26/2013 Overview (05/19/2017): Overview: GENERAL OSTEOARTHROSIS Hypertension, essential Depression Family History Medical History Relation Name Comments Heart Attack Maternal Grandfather Emphysema Paternal Grandfather Relation Name Status Comments Father Alive Maternal Grandfather Mother Alive Paternal Grandfather Social History Tobacco Use Types Packs/Day Years Used Date Smoking Tobacco: Never Smokeless Tobacco: Never Tobacco Cessation:Counseling Given: Yes Alcohol Use Standard Drinks/Week Comments Yes 5 (1 standard drink = 0.6 oz pur e alcohol) Sexually Active Control Partners Comments Yes Female Sex and Gender Information Value Date Recorded Sex Assigned at Not on file Legal Sex Male 8:31 PM CDT Gender Identity Not on file Sexual Orientation Not on file Last Filed Vital Signs Vital Sign Reading Time Taken Comments Blood Pressure 130/64 10/02/2017 8:54 AM CDT Pulse 65 10/02/2017 8:54 AM CDT Temperature 36.5 ??C (97.7 ??F) 10/02/2017 8:54 AM CD T Respiratory Rate 20 07/08/2017 8:52 AM CDT Oxygen Saturation 98% 10/02/2017 8:54 AM CDT Inhaled Oxygen Concentration - - Weight 122 kg (269 lb) 10/02/2017 8:54 AM CDT wi th boot Height 170.2 cm (5' 7 ) 10/02/2017 8:54 AM CDT Body Mass Index 42.13 10/02/2017 8:54 AM CDT Plan of Treatment Health Maintenance Due Date Last Done Comments Hepatitis C Virus (HCV) Screening 1955 TdaP Immunization 1955 Colonoscopy 2002 Colorectal Cancer Screening 2002 Cologuard 12/04/2007 Immunochemical Fecal Occult Blood 12/04/2007 Pneumococcal Immunization (5 0+ years) (1 of 1 - PCV) 12/04/2007 Zoster Immunization (1 of 2) 12/04/2007 PSA Discussion 2012 Respiratory Syncytial Virus (RSV) Immunization (Adult) (1 - Risk 60-74 years 1-dose series) 2017 Influenza Immunization (#1) 2023 092 08/2020, 12/16/2016 SARS-COV-2 Immunization ( season) 2023 01/09/2021, 05/08/2020, 04/17/2020 Hepatitis B Immunization Aged Out No longer eligible based on patient's age to complete this topic Meningococcal Immunization (ACWY) Aged Out No longer eligible b ased on patient's age to complete this topic Rotavirus Immunization Aged Out No lo nger eligible based on patient's age to complete this topic Care Teams Pulp Refiner Operator Relationship Specialty Start Date End Date Eriberto Boss MD [address] [place] [address] [address] [place] [address] PCP - General Internal Medicine 07/24/20 Francisco Atkins MD [address] [address] Consulting Physician Cardiology 05/19/17 Cheryl Coello APRN [address] [place] [address] Nurse Practitioner Pain Medicine-Pain Management 05/19/17 Joni Summers MD [address] [place] [address] Consulting Physician Orthopaedic Sports Medicine 05/19/17 Cordelia Young DPM [address] [place] [address] Consulting Physician Podiatry 10/02/17 Dylan Varela MD [address] [address] Neurology 10/02/17
--- OUTSIDE RECORDS SUMMARY | 2024-03-08 15:15 | XMS_ITS | Clinical Summary ---
Author Organization [facility] Address [address] [place] [address] Phone Care Team Providers Care Pet House Sitter Name Role Phone Unavailable Primary Care Provider Unavailabl e Allergies Active Allergy Reactions Criticality Noted Date Comments Indomethacin Unknown Meloxicam Unknown Medications allopurinol (ZYLOPRIM) 300 mg Oral Tab Take 1 Tab by mouth daily. 30 Tab 5 06/02/2008 Active Active Problems Problem Noted Date Diagnosed Date Infectious mononucleosis Essential hypertension, benign Immunizations Immunization Administration Dates Next Due (TDVAX)(7 YRS UP) TETANUS AN D DIPHTHERIA TOXOIDS, ADSORBED (2 LF OF TETANUS TOXOID AND 2 LF OF DIPHTHERIA TOXOID), 0.5ML (PF), IM 02/11/1996 Family History Relation Name Status Comments Father Alive Mother Alive Social History Tobacco Use Types Packs/Day Years Used Date Smoking Tobacco: Never Assessed Sex and Gender Information Value Date Recorded Sex Assigned at Not on file Legal Sex Male 5:35 AM DIORAMIST Gender Identity Not on file Sexual Orientation Not on file Last Filed Vital Signs Vital Sign Reading Time Taken Comments Blood Pressure 120/70 08/21/2007 9:01 AM CDT Pulse 78 08/21/2007 9:01 AM CDT Temperature - - Respiratory Rate - - Oxygen Saturation - - Inhaled Oxygen Concentration - - Weight 121.1 kg (267 lb) 08/21/2007 9:01 AM CDT Height 172.7 cm (5' 8 ) 08/21/2007 9:01 AM CDT Body Mass Index 40.6 08/21/2007 9:01 AM CDT Plan of Treatment Health Maintenance Due Date Last Done Comments DTAP/TDAP/TD VACCINES (1 - Tdap) 02/12/1996 02/10/18 97 COLORECTAL SCREENING 2002 Colorectal Cancer Screening 2002 FIT-DNA Q 3 years 2002 FIT/FOBT Q 1 year 2002 Flex Sig/CT Colonography Q 5 years 2002 PNEUMOCOCCAL VACCINE 65+ YEARS (1 of 1 - PCV) 12/04/19 08 ZOSTER VACCINE (1 of 2) 12/04/2007 INFLUENZA VACCINE (#1) 2023 RSV VACCINE (60+ or ) (1 - 1-dose 75+ series) 2032 Insurance [employer] [facility] [place] [facility] [place] [place] Address: [facility] [id number] [place] [address]
--- OUTSIDE RECORDS SUMMARY | 2024-03-08 15:15 | XMS_ITS | Encounter Summary ---
Author Organization [facility] Address [address] [place] [address] Care Team Providers Care Choker Setter Name Role Phone Unavailable Primary Care Provider Unavailabl e Encounter Details Date Type Department Care Team (Late st Contact Info) Description 07/31/2007 Outpatient Historical [facility] Jason Helton MD [address] [place] [address] Essential Hypertension, Benign Social History Tobacco Use Types Packs/Day Years Used Date Smoking Tobacco: Never Assessed Sex and Gender Information Value Date Recorded Sex Assigned at Not on file Legal Sex Male 5:35 AM STUBBER Gender Identity Not on file Sexual Orientation Not on file documented as of this encounter Plan of Treatment Not on file documented as of this encounter Procedures Procedure Name Priority Date/Time Associated Diagnosis Comments URIC ACID Routine 07/31/2007 3:10 PM CDT BASIC METABOLIC PANEL Routine 07/31/2007 3:10 PM CDT documented in this encounter Results * (ABNORMAL) URIC ACID (07/31/2007 3:10 PM CDT) URIC ACID 9.0(H) 4.4 - 7.6 mg/dL [facility] Blood specimen (specimen) 07/31/2007 3:10 PM CDT 07/31/2007 7:46 PM CDT Jason Helton MD CHEMISTRY ORDERABLES Final R esult Performing Organization Address City/[facility]/ZIP Co de Phone Number [facility] CLIA# [id number] [address] [place] [address] * (ABNORMAL) BASIC METABOLIC PANEL (07/31/2007 3:10 PM CDT) GLUCOSE 109(H) 65 - 99 mg/dL [facility] SODIUM 141 135 - 145 mmol/L [facility] CALCIUM 9.3 8.4 - 10.2 mg/dL [facility] CO2 26 22 - 30 mmol/L [facility] CREATININE 0.97 0.67 - 1.17 mg/dL [facility] POTASSIUM 4.3 3.5 - 4.9 mmol/L [facility] BUN 17 6 - 20 mg/dL [facility] CHLORIDE 103 96 - 108 mmol/L [facility] GFR, >60 >=60 mL/min/1. 7 sq meter [facility] GFR >60 >=60 mL/min/1. 7 sq meter [facility] Comment: Modification of Diet in Renal Disease (MDRD) study formula. Estimated GFR rate interpretative information for both Americans and non- Americans is available on the [facility] Intranet at: [email or web address] Select: Lab Policies and Procedures Select: Reference Ranges - GFR Blood specimen (specimen) 07/31/2007 3:10 PM CDT 07/31/2007 7:46 PM CDT Jason Helton MD CHEMISTRY ORDERABLES Edited [facility] CLIA# [id number] [address] [place] [address] documented in this encounter Visit Diagnoses Diagnosis Essential hypertension, benign documented in this encounter
--- OUTSIDE RECORDS SUMMARY | 2024-03-08 15:16 | XMS_ITS | Patient Health Summary ---
Author Organization [facility] Address [address] [place] [address] Care Team Providers Care Cvt Rn Name Role Phone Francisco Atkins MD Unavailable [phone] Edi Geronimo DO Primary Care Provider [phone] Note from [facility],non-owned Affiliates and Associated Physician Practices is amultiple site organization consisting of ambulatory clinics and hospital sitesin [place], [place], [place] and [place]. This disclosure is being madepursuant to the Care Everywhere program and may not contain all information available regarding this patient. Last updated 17.[facility] Allergies * Amlodipine Base(Other) -Medium Criticality * Colchicine(Nausea and/or Vomiting) -Medium Criticality * Indomethacin(Other,Unknown) -Medium Criticality * Nsaids(Other) -Medium Criticality * Meloxicam(Other,Unknown),Inactive Medications * Be aware that medications may not be up to date on this document. Alwaysverify current medications with the patient. * sotalol (BETAPACE) 80 MG tablet(Started 10/12/2019) TAKE ONE TABLET BY MOUTH TWICE DAILY 11 refills by 10/11/2020 * NIFEdipine CR osmotic 24hr (PROCARDIA-XL) 30 MG tablet(Started 01/10/2020) TAKE 1 TABLET BY MOUTH DAILY DIRECTED. MAY TAKE ADDITIONAL TABLET FOR BYSTOLIC BLOOD PRESSURE OVER 180 11 refills by 01/09/2021 * ELIQUIS 5 MG tablet(Started 01/17/2020) TAKE 1 TABLET BY MOUTH TWICE DAILY 4 refills by 01/16/2021 * oxyCODONE-acetaminophen (PERCOCET) 10-325 MG tablet(Started 01/27/2020) Take 1 tablet by mouth every 6 hours as needed * tranylcypromine (PARNATE) 10 MG tablet(Started 01/24/2020) Take 10 mg by mouth 3 times daily * allopurinol (ZYLOPRIM) 100 MG tablet(Started 01/24/2020) Take 100 mg by mouth once daily * vitamin D3 (CHOLECALCIFEROL) 25 MCG (1000 UNITS) tablet Take 1,000 Units by mouth once daily * losartan (COZAAR) 100 MG tablet(Started 03/09/2020) TAKE 1 TABLET BY MOUTH EVERY DAY 3 refills by 03/09/2021 Active Problems Problem Noted Date Diagnosed Date Precordial pain 03/08/2016 History of CHF (congestive heart failure) 2015 Nonrheumatic aortic valve insufficiency 01/31/20 16 Non morbid obesity due to excess calories 2015 Non-rheumatic tricuspid valve insufficiency 01/11 Dietary counseling 01/16/2015 Essential hypertension, benign 07/22/2014 Sleep apnea, obstructive 07/22/2014 Immunizations * Td (Adult), 2 Lf Tetanus Toxoid, Adsorbed, Pf(Given 02/11/1996) Social History Tobacco Use Types Packs/Day Years Used Date Smoking Tobacco: Never Smokeless Tobacco: Never Alcohol Use Standard Drinks/Week Comments Not Currently 2 (1 standard drink = 0.6 oz pur e alcohol) occasionally Sex and Gender Information Value Date Recorded Sex Assigned at Not on file Gender Identity Not on file Sexual Orientation Not on file Last Filed Vital Signs Vital Sign Reading Time Taken Comments Blood Pressure 145/80 04/20/2020 2:46 PM CUTTER MACHINE Pulse 71 04/20/2020 2:46 PM CUTTER MACHINE Temperature 7 ??C (44.6 ??F) 03/27/2020 5:20 PM CUTTER MACHINE Respiratory Rate 16 03/27/2020 5:50 PM CUTTER MACHINE Oxygen Saturation 94% 03/27/2020 6:25 PM CUTTER MACHINE Inhaled Oxygen Concentration - - Weight 130.6 kg (288 lb) 01/25/2021 4:13 PM CUTTER MACHINE Height 172.7 cm (5' 8 ) 01/25/2021 4:13 PM CUTTER MACHINE Body Mass Index 43.79 01/25/2021 4:13 PM CUTTER MACHINE Procedures * ME TONGUE SUSPENSION(Performed 03/27/2020) Performed for Obstructive sleep apnea, Hx of tonsillectomy, History of CHF (congestive heart failure) * LARYNGOSCOPY DIRECT(Performed 03/27/2020) Performed for Obstructive sleep apnea, Hx of tonsillectomy, History of CHF (congestive heart failure) * ENDOTRACHEAL TUBE NOTE(Performed 03/27/2020) * GLUCOSE - POINT OF CARE(Performed 03/27/2020) * SARS-COV-2 (COVID-19) IN HOUSE(Performed 03/24/2020) Performed for Pre-op testing * BASIC METABOLIC PANEL (CALCIUM TOTAL)(Performed 03/08/2020) Performed for Pre-op evaluation * CBC W/O DIFFERENTIAL(Performed 03/08/2020) Performed for Pre-op evaluation * ME LARYNGOSCOPY,FLEX FIBER,DIAGNOSTIC(Performed 02/01/2020) Performed for KARL (obstructive sleep apnea), S/P tonsillectomy, History of CHF (congestive heart failure) * EKG 12-LEAD(Performed 04/30/2019) Performed for PAF (paroxysmal atrial fibrillation) (HCC) * EKG 12-LEAD(Performed 11/18/2017) Performed for Essential hypertension, benign * EKG 12-LEAD(Performed 10/13/2017) * ECHOCARDIOGRAM 2D WITH DOPPLER(Performed 07/23/2017) Performed for History of CHF (congestive heart failure), Nonrheumatic aortic valve insufficiency * EKG 12-LEAD(Performed 07/23/2017) Performed for History of CHF (congestive heart failure) * ECHOCARDIOGRAM 2D WITH DOPPLER(Performed 09/01/2015) Performed for Nonrheumatic aortic valve insufficiency * ECHOCARDIOGRAM STRESS(Performed 01/18/2015) Performed for Other chest pain, Shortness of breath * LAB MISC TEST(Performed 01/13/2015) * XR CHEST 1VW PORTABLE(Performed 01/13/2015) * ECHOCARDIOGRAM 2D WITH DOPPLER(Performed 07/26/2014) Performed for CHF (congestive heart failure), acute, diastolic, Sleep apnea, obstructive * EKG 12-LEAD(Performed 07/06/2014) * XR CHEST 2VW(Performed 07/06/2014) * LAB MISC TEST(Performed 06/15/2014) * CULTURE BLOOD(Performed 06/14/2014) * US LOWER EXT BILAT VENOUS DOPPL(Performed 06/01/2014) * US LOWER EXT BILAT VENOUS DOPPL(Performed 05/25/2014) * CULTURE TISSUE(Performed 05/25/2014) * LAB MISC TEST(Performed 05/18/2014) * US LOWER EXT BILAT VENOUS DOPPL(Performed 05/12/2014) * CT ANGIO CHEST PULM EMBOLISM(Performed 05/12/2014) Results * ETT LINE PERFORMABLE (03/27/2020 2:19 PM CUTTER MACHINE) Narrative Ephraim Hagan MD - 03/27/2020 2:19 PM CUTTER MACHINE Wolf Cordova), CORWIN ? 03/27/2020 ??2:20 PM Endotracheal Tube Placement: ? Patient Location: OR. Intubation Event Date/Time: ??03/27/2020 2:09 PM Procedure: intubation (39079). Procedure Section: ?? Sedation: under general anesthesia. Indications for Airway Management: ??anesthesia Procedure pretreatments used? ??No Induction: standard IV Patient Position: ??sniffing Mask Ventilation: difficult and required 2 people (2 handed). Blade Type: Gagan Blade Size: 4 Laryngoscopy View: grade 1 (full cords) Intubation Adjuncts: cricoid pressure and stylet Tube: endotracheal tube Placement: oral Tube type: cuff - inflated Tube Size (MM): 8 Depth of Insertion (CM): 23 Measured From: lips Cuff volume (mL): ??8 Cuff Inflated With: air Number of Attempts: 1. Ventilation between attempts: No. Placement Verified By: direct visualization, bilateral breath sounds, chest auscultation and CO2 monitor Tube secured with: ??adhesive tape. Dentition unchanged? ??Yes Difficult Airway? ??No. Procedure Start Time: 03/27/2020 2:09 PM. Staff Section ?? Anesthesia Provider: Wolf Cordova), TUGBOAT DISPATCHER-SMUDGER, Performed the procedure Ephraim Hagan MD GENERAL ANESTHESIA O RDERABLES * (ABNORMAL) GLUCOSE - POINT OF CARE (03/27/2020 1:37 PM CUTTER MACHINE) Pathologist [facility] Glucose WB/POC 133(H) 70 - 115 mg/dL 03/27/2020 1:38 PM CUTTER MACHINE [facility] Specimen Type Arterial/C apillary 03/27/2020 1:38 PM CUTTER MACHINE [facility] Blood BLOOD SPECIMEN / Unknown 03/27/2020 1:37 PM CUTTER MACHINE 03/27/2020 1:38 PM CUTTER MACHINE Adarsh Quinones MD LAB - POINT OF CA RE ORDERABLES [facility] [address] [place] [address], [facility] [phone] * SARS-COV-2 (COVID-19) PRE-SURGICAL/PROCEDURE (03/24/2020 11:40 AM CUTTER MACHINE) COVID-19 PCR Not detected Not detected 03/24/2020 6:56 PM CUTTER MACHINE [facility] Microbiology SPECIMEN FROM NASOPHARYNGEAL STRUCTURE / Unknown Collection / Unknown 03/24/2020 11:40 AM CUTTER MACHINE 03/24/2020 12:45 PM CUTTER MACHINE Narrative [facility] - 03/24/2020 6:56 PM CUTTER MACHINE This nucleic acid amplification assay performance was validated by [facility]. This test has been authorized by the Food and Drug administration (FDA)under an Emergency??Use Authorization (EUA). This test has been validated in accordance with the FDA's guidance document Policy for Diagnostic Testing in Laboratories Certified to perform High Complexity Testing under CLIA prior to Emergency Use Authorization for Coronavirus Disease-2019 during the Public Health Emergency issued on April 10, 2019. FDA independent review of this validation is pending. This test is only authorized for the duration of time the declaration that circumstances exist justifying the authorization of emergency use of in vitro diagnostic tests for detection of SARS-CoV-2 virus and/or diagnosis of COVID-19 infection under section 564(b)(1) of the Act, 21 U.S.C 360bbb-3 (b)(1), unless the authorization is terminated or revoked sooner. Fact Sheets for this EUA assay are available upon request. Adarsh Quinones MD LAB - MICROBIOLOG Y ORDERABLES [facility] [address] [place] [address] [phone] * (ABNORMAL) CBC W/O DIFFERENTIAL (03/08/2020 1:04 PM CUTTER MACHINE) WBC 5.5 3.5 - 10.5 10? 3 /uL 03/08/2020 1:17 PM [facility] RBC 4.77 4.30 - 5.70 10? 6 /uL 03/08/2020 1:17 PM [facility] Hemoglobin 13.6 13.5 - 17.5 g/dL 03/08/2020 1:17 PM [facility] Hematocrit 41.1 39.0 - 50.0 % 03/08/2020 1:17 PM [facility] MCV 86.2 81.0 - 97.0 fL 03/08/2020 1:17 PM [facility] MCH 28.5 28.0 - 34.0 pg 03/08/2020 1:17 PM [facility] MCHC 33.1 32.0 - 36.0 g/dL 03/08/2020 1:17 PM [facility] Platelet Count 116(L) 150 - 400 10? 3 /uL 03/08/2020 1:17 PM [facility] RDW-SD 41.5 36.0 - 50.0 fL 03/08/2020 1:17 PM [facility] RDW-CV 13.3 11.2 - 14.8 % 03/08/2020 1:17 PM [facility] MPV 10.8 9.3 - 12.8 fL 03/08/2020 1:17 PM [facility] nRBC Absolute 0.00 0 10? 3 /uL 03/08/2020 1:17 PM [facility] nRBC Auto 0.0 0 /100 WBC 03/08/2020 1:17 PM [facility] Blood BLOOD SPECIMEN / Unknown Lab Venipuncture / Unknown 03/08/2020 1:04 PM CUTTER MACHINE 03/08/2020 1:11 PM CUTTER MACHINE Adarsh Quinones MD LAB - HEMATOLOGY ORDERABLES [facility] [address] [place] [address], [facility] [phone] * (ABNORMAL) BASIC METABOLIC PANEL (CALCIUM TOTAL) (03/08/2020 1:04 PM CUTTER MACHINE) BUN 19 7 - 26 mg/dL 03/08/2020 1:44 PM [facility] Creatinine 0.9 0.6 - 1.2 mg/dL 03/08/2020 1:44 PM [facility] Sodium 137 136 - 145 mmol/L 03/08/2020 1:44 PM [facility] Potassium 4.6(H) 3.5 - 4.5 mmol/L 03/08/2020 1:44 PM [facility] Chloride 103 98 - 107 mmol/L 03/08/2020 1:44 PM [facility] CO2 25 22 - 29 mmol/L 03/08/2020 1:44 PM [facility] Glucose 138(H) 70 - 115 mg/dL 03/08/2020 1:44 PM [facility] Calcium 9.1 8.4 - 10.2 mg/dL 03/08/2020 1:44 PM [facility] Anion Gap 14 8 - 18 03/08/2020 1:44 PM [facility] BUN/Creatinine Ratio 21 7 - 23 03/08/2020 1:44 PM [facility] Osmolality Calculated 288 270 - 300 mOsm/kg 03/08/2020 1:44 PM [facility] eGFR >60 >60 mL/min/1.7 3 m2 03/08/2020 1:44 PM [facility] Blood BLOOD SPECIMEN / Unknown Lab Venipuncture / Unknown 03/08/2020 1:04 PM CUTTER MACHINE 03/08/2020 1:21 PM CUTTER MACHINE Adarsh Quinones MD LAB - CHEMISTRY O RDERABLES [facility] [address] [place] [address], [facility] [phone] * ME LARYNGOSCOPY,FLEX FIBER,DIAGNOSTIC (02/01/2020 5:26 PM CUTTER MACHINE) Narrative Adarsh Quinones MD - 02/01/2020 5:26 PM CUTTER MACHINE Adarsh Quinones MD ? 02/01/2020 ??5:34 PM Procedure Note Anesthesia: Lidocaine 2% and Prince-Synephrine 1/2% Endoscopy Type: ??Flexible Urdgi-Fatbtvquqahbrj-Atzvmtjspxhy Procedure Details: Informed consent was obtained. ??The patient was placed in the sitting position. ??After topical anesthesia and decongestion, the 4 mm laryngoscope was passed. ??The nasal cavities, nasopharynx, oropharynx, hypopharynx, and larynx were all examined. ??Vocal cords were examined during respiration and phonation. ??This was repeated with the patient supine. ??The following findings were noted: ??Normal nasal cavity. ??Adenoids obstructing 5% of postnasal space (normal less than 40%). ??Moderately severe tongue base narrowing, worse when supine. ??Moderately severe lateral pharyngeal collapse with Guerrero. ??Otherwise normal nasopharynx, oropharynx, hypopharynx, and larynx. ??Good TVC mobility bilaterally. ?? The patient tolerated procedure well. Complications: None For all procedures, attending was present and performed the tillman portions of the procedure. Adarsh Quinones MD PROCEDURE/MINOR S URGICAL ORDERABLES * EKG 12-LEAD (04/30/2019 8:59 AM CDT) Only the most recent of5 resultswithin the time period is included. Narrative Lakeshia Gonzalez - 04/30/2019 8:59 AM CDT Ryann Warner ? 04/30/2019 ??8:59 AM See scan Procedure Note Ryann Warner - 04/30/2019 8:59 AM CDT See scan Francisco Atkins MD ECG ORDERABLES * ECHOCARDIOGRAM 2D WITH DOPPLER (07/23/2017 4:20 PM CDT) Only the most recent of3 resultswithin the time period is included. Narrative Monica Singleton RDMS - 07/23/2017 4:20 PM CDT Monica Singleton RDMS ? 07/23/2017 ??4:20 PM See scan Francisco Atkins MD ECHO ORDERABLES * ECHOCARDIOGRAM STRESS (01/18/2015 2:51 PM CUTTER MACHINE) Narrative Isabel Fabian RDMS - 01/18/2015 2:51 PM CUTTER MACHINE Isabel Fabian RDMS ? 01/18/2015 ??2:51 PM See scan Francisco Atkins MD ECHO ORDERABLES * LAB MISC TEST (01/13/2015) Only the most recent of3 resultswithin the time period is included. Other (qualifier value) BLOOD SPECIMEN / Unknown Historical Provider LAB SEND OUT * XR CHEST 1VW PORTABLE (01/13/2015) Anatomical Region Laterality Modality Chest Other Historical Provider DIAGNOSTIC IMAGIN G ORDERABLES * XR CHEST PA AND LATERAL (07/06/2014) Anatomical Region Laterality Modality Chest Other Zonia Garcia MD DIAGNOSTIC IMAGING ORDERABLES * CULTURE BLOOD (06/14/2014) Blood specimen (specimen) Historical Provider LAB - MICROBIOLOG Y ORDERABLES [facility] INSURANCE BILL * US LOW EXT BILAT VENOUS DOPPLER (06/01/2014) Only the most recent of3 resultswithin the time period is included. Anatomical Region Laterality Modality Other Norberto John MD US ORDERABLES * CULTURE TISSUE (05/25/2014) Miscellaneous samples (specimen) Historical Provider LAB - MICROBIOLOG Y ORDERABLES [facility] INSURANCE BILL * CT CHEST PE (05/12/2014) Anatomical Region Laterality Modality Chest Other Collins Wilson MD CT ORDERABLES Care Teams Cvt Rn Relationship Specialty Start Date End Date Grazyna DO Edi [address] [place] [address] [phone] PCP - General 05/24/22 Francisco Atkins MD Cardiovascular Disease 07/22/14
--- OUTSIDE RECORDS SUMMARY | 2024-03-08 15:16 | XMS_ITS | Referral Summary ---
Author Organization [facility] Address [address] [place] [address] Care Team Providers Care Air Hammer Stripper Name Role Phone Francisco Atkins MD Unavailable [phone] Edi Geronimo DO Primary Care Provider [phone] Source Comments [facility],non-owned Affiliates and Associated Physician Practices is amultiple site organization consisting of ambulatory clinics and hospital sitesin [place], [place], [place] and [place]. This disclosure is being madepursuant to the Care Everywhere program and may not contain all information available regarding this patient. Last updated 17.[facility] Allergies Active Allergy Reactions Criticality Noted Date Comments Amlodipine Base Other Medium 02/06/2018 Leg swelling Colchicine Nausea and/or Vomiting Medium 02/01/2020 Reaction: nausea, Indomethacin Other,Unknown Medium 02/01/2020 vagel response Nsaids Other Medium 02/01/2020 Vagal response Medications * Be aware that medications may not be up to date on this document. Alwaysverify current medications with the patient. Medication Sig Dispensed Refills Start Date End Date Status sotalol (BETAPACE) 80 MG tablet TAKE ONE TABLET BY MOUTH TWICE DAILY 60 tablet 11 10/12/2019 Active Additional Information Patient taking differently: 80 mg Oral DAILY, Reported on 04/20/2020 NIFEdipine CR osmotic 24hr (PROCARDIA-XL) 30 MG tablet TAKE 1 TABLET BY MOUTH DAILY DIRECTED. MAY TAKE ADDITIONAL TABLET FOR BYSTOLIC BLOOD PRESSURE OVER 180 30 tablet 11 01/10/2020 Active Additional Information Patient taking differently: 30 mg Oral DAILY, Reported on 03/08/2020 ELIQUIS 5 MG tablet TAKE 1 TABLET BY MOUTH TWICE DAILY 180 tablet 4 01/17/2020 Active Additional Information Patient taking differently: 5 mg Oral 2 TIMES DAILY, Reported on 04/20/2020 oxyCODONE-acetamin ophen (PERCOCET) 10-325 MG tablet Take 1 tablet by mouth every 6 hours as needed 01/27/2020 Active tranylcypromine (PARNATE) 10 MG tablet Take 10 mg by mouth 3 times daily 01/24/2020 Active allopurinol (ZYLOPRIM) 100 MG tablet Take 100 mg by mouth once daily 01/24/2020 Active vitamin D3 (CHOLECALCIFEROL) 25 MCG (1000 UNITS) tablet Take 1,000 Units by mouth once daily Active losartan (COZAAR) 100 MG tablet TAKE 1 TABLET BY MOUTH EVERY DAY 90 tablet 3 03/09/2020 Active Additional Information Patient taking differently: 100 mg Oral DAILY, Reported on 04/20/2020 Active Problems Patient Care Coordination No te Formatting of this note migh t be different from the original. Shuttle Spotter - Dr. Francisco Atkins Problem Noted Date Diagnosed Date Precordial pain 03/08/2016 History of CHF (congestive heart failure) 2015 Nonrheumatic aortic valve insufficiency 01/31/20 16 Non morbid obesity due to excess calories 2015 Non-rheumatic tricuspid valve insufficiency 01/11 Dietary counseling 01/16/2015 Essential hypertension, benign 07/22/2014 Sleep apnea, obstructive 07/22/2014 Immunizations Name Administration Dates Next Due Td (Adult), 2 Lf Tetanus Toxoid, Adsorbed, Pf Social History Tobacco Use Types Packs/Day Years [...] Comments Blood Pressure 145/80 04/20/2020 2:46 PM RUBBER MOLD MAKER Pulse 71 04/20/2020 2:46 PM RUBBER MOLD MAKER Temperature 7 ??C (44.6 ??F) 03/27/2020 5:20 PM RUBBER MOLD MAKER Respiratory Rate 16 03/27/2020 5:50 PM RUBBER MOLD MAKER Oxygen Saturation 94% 03/27/2020 6:25 PM RUBBER MOLD MAKER Inhaled Oxygen Concentration - - Weight 130.6 kg (288 lb) 01/25/2021 4:13 PM RUBBER MOLD MAKER Height 172.7 cm (5' 8 ) 01/25/2021 4:13 PM RUBBER MOLD MAKER Body Mass Index 43.79 01/25/2021 4:13 PM RUBBER MOLD MAKER Plan of Treatment Not on file Procedures Procedure Name Priority Date/Time Associated Diagnosis Comments GLUCOSE - POINT OF CARE Routine 03/27/2020 1:37 PM RUBBER MOLD MAKER from Last 3 Months or Most Recently Relevant to Health Maintenance Results * (ABNORMAL) GLUCOSE - POINT OF CARE (03/27/2020 1:37 PM RUBBER MOLD MAKER) Glucose WB/POC 133(H) 70 - 115 mg/dL 03/27/2020 1:38 PM RUBBER MOLD MAKER [facility] Specimen Type Arterial/C apillary 03/27/2020 1:38 PM RUBBER MOLD MAKER [facility] Blood BLOOD SPECIMEN / Unknown 03/27/2020 1:37 PM RUBBER MOLD MAKER 03/27/2020 1:38 PM RUBBER MOLD MAKER Adarsh Quinones MD LAB - POINT OF SD RE ORDERABLES [facility] [address] [place] [address], [facility] [phone] from Last 3 Months or Most Recently Relevant to Health Maintenance Advance Directives * Full Code (Latest Code Status on File) Date Activated Date Inactivated Comments 03/27/2020 12:49 PM 03/27/2020 7:55 PM Care Teams Air Hammer Stripper Relationship Specialty Start Date End Date Edi Geronimo DO [address] [place] [phone] PCP - General 05/24/22 Francisco Atkins MD Cardiovascular Disease 07/22/14
--- OUTSIDE RECORDS SUMMARY | 2024-03-08 15:16 | XMS_ITS | Clinical Summary ---
Author Organization [facility] Address [address] [address] Care Team Providers Care Electric Melt Operator Name Role Phone Francisco Atkins MD Unavailable [phone] Edi Geronimo DO Primary Care Provider [phone] Source Comments [facility],non-owned Affiliates and Associated Physician Practices is amultiple site organization consisting of ambulatory clinics and hospital sitesin [place], [place], [place]. This disclosure is being madepursuant to the Care Everywhere program and may not contain all information available regarding this patient. Last updated 17.[facility] Allergies Active Allergy Reactions Criticality Noted Date [...] migh t be different from the original. Rug Inspector Helper - Dr. Francisco Atkins Problem Noted Date Diagnosed Date Precordial pain 03/08/2016 History of CHF (congestive heart failure) 2015 Nonrheumatic aortic valve insufficiency 01/31/20 16 Non morbid obesity due to excess calories 2015 Non-rheumatic tricuspid valve insufficiency 01/11 Dietary counseling 01/16/2015 Essential hypertension, benign 07/22/2014 Sleep apnea, obstructive 07/22/2014 Immunizations Name Administration Dates Next Due Td (Adult), 2 Lf Tetanus Toxoid, Adsorbed, Pf Family History Medical History Relation Name Comments Heart Surgery Father biologic CABG Relation Name Status Comments Father biologic Alive alive at 79, s/ p CABG in his 70s Mother Alive alive at 78 wit h no known heart disease Social History Tobacco Use Types Packs/Day Years [...] Comments Blood Pressure 145/80 04/20/2020 2:46 PM PHOSPHATIC FERTILIZER SUPERVISOR Pulse 71 04/20/2020 2:46 PM PHOSPHATIC FERTILIZER SUPERVISOR Temperature 7 ??C (44.6 ??F) 03/27/2020 5:20 PM PHOSPHATIC FERTILIZER SUPERVISOR Respiratory Rate 16 03/27/2020 5:50 PM PHOSPHATIC FERTILIZER SUPERVISOR Oxygen Saturation 94% 03/27/2020 6:25 PM PHOSPHATIC FERTILIZER SUPERVISOR Inhaled Oxygen Concentration - - Weight 130.6 kg (288 lb) 01/25/2021 4:13 PM PHOSPHATIC FERTILIZER SUPERVISOR Height 172.7 cm (5' 8 ) 01/25/2021 4:13 PM PHOSPHATIC FERTILIZER SUPERVISOR Body Mass Index 43.79 01/25/2021 4:13 PM PHOSPHATIC FERTILIZER SUPERVISOR Plan of Treatment Health Maintenance Due Date Last Done Comments COLOGUARD (AGES 45-75) - COL ON CA SCREENING 1957 COLON MONITORING 1957 COLONOSCOPY - COLON CA SCREENING 1957 CT COLONOGRAPHY - COLON CA SCREENING 1955 Colorectal Cancer Screening 1955 FIT - COLON CA SCREENING 1957 FLEX SIG - COLON CA SCREENING 1957 LIPID TESTING 1955 HEPATITIS C SCREENING 11/29/1975 DTAP/TDAP/TD VACCINES (1 - Tdap) 02/12/1996 02/11/1996 PNEUMOCOCCAL VACCINE 50+ (1 of 1 - PCV) 12/04/2007 ZOSTER VACCINE (1 of 2) 12/04/2007 Respiratory Syncytial Virus (RSV) Vaccine Pt: or over 60 yrs (1 - Risk 60-74 years 1-dose series) 2017 SCREENING FOR DIABETES 03/27/2023 , 03/08/2020 COVID-19 VACCINE (1 - 2023-2 5 season) 2023 INFLUENZA VACCINE (#1) 2023 DEPRESSION SCREENING 02/11/2024 HEPATITIS B VACCINE Aged Out No longe r eligible based on patient's age to complete this topic HIB VACCINE Aged Out No longer eligi ble based on patient's age to complete this topic HPV VACCINE Aged Out No longer eligi ble based on patient's age to complete this topic MENINGOCOCCAL (Group B) VACCINE Aged Out No longer eligible b ased on patient's age to complete this topic MENINGOCOCCAL VACCINE Aged Out No chucho nhi eligible based on patient's age to complete this topic Procedures Procedure Name Priority Date/Time Associated Diagnosis Comments GLUCOSE - POINT OF CARE Routine 03/27/2020 1:37 PM PHOSPHATIC FERTILIZER SUPERVISOR from Last 3 Months or Most Recently Relevant to Health Maintenance Results * (ABNORMAL) GLUCOSE - POINT OF CARE (03/27/2020 1:37 PM PHOSPHATIC FERTILIZER SUPERVISOR) Glucose WB/POC 133(H) 70 - 115 mg/dL 03/27/2020 1:38 PM PHOSPHATIC FERTILIZER SUPERVISOR [facility] Specimen Type Arterial/C apillary 03/27/2020 1:38 PM PHOSPHATIC FERTILIZER SUPERVISOR [facility] Blood BLOOD SPECIMEN / Unknown 03/27/2020 1:37 PM PHOSPHATIC FERTILIZER SUPERVISOR 03/27/2020 1:38 PM PHOSPHATIC FERTILIZER SUPERVISOR Adarsh Quinones MD LAB - POINT OF CA RE ORDERABLES [facility] [address] [place] [address], [facility] [phone] from Last 3 Months or Most Recently Relevant to Health Maintenance Advance Directives * Full Code (Latest Code Status on File) Date Activated Date Inactivated Comments 03/27/2020 12:49 PM 03/27/2020 7:55 PM Care Teams Electric Melt Operator Relationship Specialty Start Date End Date Edi Geronimo DO [facility] [place] [id number] PCP - General 05/24/22 Francisco Atkins MD Cardiovascular Disease 07/22/14
[2024-03-08 16:34] LABS: Anion Gap 9 mmol/L (4-12); Blood Urea Nitrogen 22 mg/dL (9-20); Calcium 8.8 mg/dL (8.4-10.2); Carbon Dioxide 28 mmol/L (22-30); Chloride 102 mmol/L (98-107); Estimated Glomerular Filt Rate > 60; Glucose 133 mg/dL (65-110); Potassium 4.5 mmol/L (3.4-5.0); Sodium 139 mmol/L (137-145)
== END 2024-03-08 14:20 | disposition home or self-care (01) ==
PROVIDERS: PCP Internal Medicine
DX: G47.31 Primary central sleep apnea (principal)
CPT/HCPCS: 36415; 80048

== ENCOUNTER 2024-06-21 00:20 | Day surgery (SDC) | payer OTHER, SELFPAY ==
[2024-06-11 10:47] VITALS: BMI 40.3
--- NOTE | 2024-06-14 10:07 | SUR.PREOP ---
Confirmed with patient's , Lila, that patients last dose of Eliquis is to be taken on 06/18 and the endoscopist with inform them when to resume after procedure is done.
--- OUTSIDE RECORDS SUMMARY | 2024-06-21 00:22 | XMS_ITS | Encounter Summary ---
Author Organization [facility] Address [address] [place] [address] Care Team Providers Care Slip Presser Name Role Phone Unavailable Primary Care Provider Unavailabl e Encounter Details Date Type Department Care Team (Late st Contact Info) Description 08/18/2007 Outpatient Historical HIS [facility] Jason Helton MD [address] [place] [address] Pain in Joint, Lower Leg Social History Tobacco Use Types Packs/Day Years Used Date Smoking Tobacco: Never Assessed Sex and Gender Information Value Date Recorded Sex Assigned at Not on file Legal Sex Male 5:35 AM CERTIFIED REGISTERED DENTAL ASSISTANT Gender Identity Not on file Sexual Orientation [...] PM CDT Narrative 08/18/2007 2:55 PM CDT [address] [address] Admit Date: 08/18/2007 LINA GARCIA Sex: M Admit Prov: JASON HELTON Date: 1955 Primary Care Prov: JASON HELTON CMRN: [id number] [id number] Ordering Prov: N/A Accession Number: [id number] Interpretation EXAM: MRI OF THE RIGHT KNEE, 08/18/07 Indications: Knee pain. Technique: Coronal T1 and PD fat-sat. Sagittal PD and T2 fat-sat. Axial PD fat-sat. Findings: There is mild degenerative fraying of the central free edge of the body of the medial meniscus without a focal linear tear. The lateral meniscus is normal. The ACL, PCL, extensor mechanism and collateral ligaments appear normal. There is no focal marrow edema or focal cartilage defect. There is no joint effusion. There is a small, 1 cm, Ratliff's popliteal cyst. Impression: Mild degenerative fraying of the central free edge of the medial meniscus without focal tear. . Dictated by: JOSIE RAE 08/18/2007 12:49 Electronically signed by: JOSIE RAE 08/18/2007 14:54 Transcribed: 08/18/2007 13:03 LE Procedure Note Josie Rae - 08/18/2007 [facility] [address] [place], [place] [address] Admit Date: 08/18/2007 LINA GARCIA Sex: M Admit Prov: JASON HELTON Date:1955 Primary Care Prov: JASON HELTON CMRN: [id number] [id number] [facility] Ordering Prov: N/A Interpretation EXAM: [...]
--- OUTSIDE RECORDS SUMMARY | 2024-06-21 00:22 | XMS_ITS | Encounter Summary ---
Author Organization [facility] Address [address] [place] [address] Care Team Providers Care Traffic Analyst Name Role Phone Unavailable Primary Care Provider Unavailabl e Encounter Details Date Type Department Care Team (Late st Contact Info) Description 07/30/2007 Outpatient Historical HIS [facility] Armen Miranda MD NO ADDRESS ON FILE Social History Tobacco Use Types Packs/Day Years Used Date Smoking Tobacco: Never Assessed Sex and Gender Information Value Date Recorded Sex Assigned at Not on file Legal Sex Male 5:35 AM SWITCHBOARD OPERATOR ASSISTANT Gender Identity Not on file Sexual Orientation Not on file documented as of this encounter Plan of Treatment Not on file documented as of this encounter Visit Diagnoses Not on filedocumented in this encounter
--- OUTSIDE RECORDS SUMMARY | 2024-06-21 00:22 | XMS_ITS | Encounter Summary ---
Author Organization [facility] Address [address] [place] [address] Care Team Providers Care Field Sales Trainer Name Role Phone Unavailable Primary Care Provider Unavailabl e Encounter Details Date Type Department Care Team (Late st Contact Info) Description 07/31/2007 Outpatient Historical HIS [facility] Jason Helton MD [address] [place] [address] Essential Hypertension, Benign Social History Tobacco Use Types Packs/Day Years Used Date Smoking Tobacco: Never Assessed Sex and Gender Information Value Date Recorded Sex Assigned at Not on file Legal Sex Male 5:35 AM CLINICAL REHABILITATION SPECIALIST Gender Identity Not on file Sexual Orientation [...] URIC ACID 9.0(H) 4.4 - 7.6 mg/dL [facility] Blood specimen (specimen) 07/31/2007 3:10 PM CDT 07/31/2007 7:46 PM CDT Jason Helton MD CHEMISTRY ORDERABLES Final R esult Performing Organization Address City/[facility]/ZIP Co de Phone Number [facility] CLIA# [id number] [address] [place] [address] * (ABNORMAL) BASIC METABOLIC PANEL (07/31/2007 3:10 PM CDT) GLUCOSE 109(H) 65 - 99 mg/dL [facility] SODIUM 141 135 - 145 mmol/L [facility] CALCIUM 9.3 8.4 - 10.2 mg/dL [facility] CO2 26 22 - 30 mmol/L [facility] CREATININE 0.97 0.67 - 1.17 mg/dL [facility] POTASSIUM 4.3 3.5 - 4.9 mmol/L [facility] BUN 17 6 - 20 mg/dL [facility] CHLORIDE 103 96 - 108 mmol/L [facility] GFR, >60 >=60 mL/min/1. 7 sq meter [facility] GFR >60 >=60 mL/min/1. 7 sq meter [facility] Comment: Modification of Diet in Renal Disease (MDRD) study formula. Estimated GFR rate interpretative information for both Americans and non- Americans is available on the [facility] Intranet at: [email or web address] Select: Lab Policies and Procedures Select: Reference Ranges - GFR Blood specimen (specimen) 07/31/2007 3:10 PM CDT 07/31/2007 7:46 PM CDT Jason Helton MD CHEMISTRY ORDERABLES Edited [facility] CLIA# [id number] [address] [place] [address] documented in this encounter Visit Diagnoses Diagnosis Essential hypertension, benign documented in this encounter
--- OUTSIDE RECORDS SUMMARY | 2024-06-21 00:22 | XMS_ITS | Clinical Summary ---
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
--- OUTSIDE RECORDS SUMMARY | 2024-06-21 00:22 | XMS_ITS | Clinical Summary ---
Author Organization [facility] Address [address] [place] [address] Care Team Providers Care Pot Washer Name Role Phone Francisco Atkins MD Unavailable [phone] Edi Geronimo DO Primary Care Provider [phone] Source Comments [facility],non-owned Affiliates and Associated Physician Practices is amultiple site organization consisting of ambulatory clinics and hospital sitesin [place], [place], [place] and [place]. This disclosure is being madepursuant to the Care Everywhere program and may not contain all information available regarding this patient. Last updated 17.[facility] Allergies Active Allergy Reactions Criticality Noted Date Comments Amlodipine Base Other Medium 02/06/2018 Leg swelling Colchicine Nausea and/or Vomiting Medium 02/01/2020 Reaction: nausea, Indomethacin Other,Unknown Medium 02/01/2020 vagel response Nsaids Other Medium 02/01/2020 Vagal response Medications * Be aware that medications may not be up to date on this document. Alwaysverify current medications with the patient. sotalol (BETAPACE) 80 MG tablet TAKE ONE TABLET BY MOUTH TWICE DAILY 60 tablet 11 0 Active Additional Information Patient taking differently: 80 mg Oral DAILY, Reported on 04/20/2020 NIFEdipine CR osmotic 24hr (PROCARDIA-XL) 30 MG tablet TAKE 1 TABLET BY MOUTH DAILY DIRECTED. MAY TAKE ADDITIONAL TABLET FOR BYSTOLIC BLOOD PRESSURE OVER 180 30 tablet 11 0 Active Additional Information Patient taking differently: 30 mg Oral DAILY, Reported on 03/08/2020 ELIQUIS 5 MG tablet TAKE 1 TABLET BY MOUTH TWICE DAILY 180 tablet 4 0 Active Additional Information Patient taking differently: 5 mg Oral 2 TIMES DAILY, Reported on 04/20/2020 oxyCODONE-aceta minophen (PERCOCET) 10-325 MG tablet Take 1 tablet by mouth every 6 hours as needed 0 Active tranylcypromine (PARNATE) 10 MG tablet Take 10 mg by mouth 3 times daily 0 Active allopurinol (ZYLOPRIM) 100 MG tablet Take 100 mg by mouth once daily 0 Active vitamin D3 (CHOLECALCIFERO L) 25 MCG (1000 UNITS) tablet Take 1,000 Units by mouth once daily Active losartan (COZAAR) 100 MG tablet TAKE 1 TABLET BY MOUTH EVERY DAY 90 tablet 3 1 Active Additional Information Patient taking differently: 100 mg Oral DAILY, Reported on 04/20/2020 Active Problems Patient Care Coordination No te Formatting of this note migh t be different from the original. Manufacturing Electrician - Dr. Francisco Atkins Problem Noted Date Diagnosed Date Precordial pain 03/08/2016 History of CHF (congestive heart failure) 2015 Nonrheumatic aortic valve insufficiency 01/31/20 16 Non morbid obesity due to excess calories 2015 Non-rheumatic tricuspid valve insufficiency 01/11 Dietary counseling 01/16/2015 Essential hypertension, benign 07/22/2014 Sleep apnea, obstructive 07/22/2014 Immunizations Immunization Administration Dates Next Due Td (Adult), 2 [...] at Not on file Legal Sex Male 4:23 AM TECHNICIAN PREVENTATIVE MEDICINE Gender Identity Not on file Sexual Orientation Not on file Last Filed Vital Signs Vital Sign Reading Time Taken Comments Blood Pressure 145/80 04/20/2020 2:46 PM TECHNICIAN PREVENTATIVE MEDICINE Pulse 71 04/20/2020 2:46 PM TECHNICIAN PREVENTATIVE MEDICINE Temperature 7 C (44.6 F) 03/27/2020 5:20 PM TECHNICIAN PREVENTATIVE MEDICINE Respiratory Rate 16 03/27/2020 5:50 PM TECHNICIAN PREVENTATIVE MEDICINE Oxygen Saturation 94% 03/27/2020 6:25 PM TECHNICIAN PREVENTATIVE MEDICINE Inhaled Oxygen Concentration - - Weight 130.6 kg (288 lb) 01/25/2021 4:13 PM TECHNICIAN PREVENTATIVE MEDICINE Height 172.7 cm (5' 8 ) 01/25/2021 4:13 PM TECHNICIAN PREVENTATIVE MEDICINE Body Mass Index 43.79 01/25/2021 4:13 PM TECHNICIAN PREVENTATIVE MEDICINE Plan of Treatment Health Maintenance Due Date [...] VACCINE (1 - 2023-2 5 season) 2023 DEPRESSION SCREENING 02/11/2024 INFLUENZA VACCINE (Season Ended) 2024 HEPATITIS B VACCINE Aged Out No longe r eligible based on patient's age to complete this topic HIB VACCINE Aged Out No longer eligi ble based on patient's age to complete this topic HPV VACCINE Aged Out No longer eligi ble based on patient's age to complete this topic MENINGOCOCCAL (Group B) VACCINE SHARED DECISION-MAKING Aged Out No longer eligible based on patient's age to complete this topic MENINGOCOCCAL GROUPS A/C/Y/W VACCINE Aged Out No longer eligible b ased on patient's age to complete this topic Procedures Procedure Name Priority Date/Time Associated Diagnosis Comments GLUCOSE - POINT OF CARE Routine 03/27/2020 1:37 PM TECHNICIAN PREVENTATIVE MEDICINE from Last 3 Months or Most Recently Relevant to Health Maintenance Results * (ABNORMAL) GLUCOSE - POINT OF CARE (03/27/2020 1:37 PM TECHNICIAN PREVENTATIVE MEDICINE) Glucose WB/POC 133(H) 70 - 115 mg/dL 03/27/2020 1:38 PM TECHNICIAN PREVENTATIVE MEDICINE [facility] Specimen Type Arterial/C apillary 03/27/2020 1:38 PM TECHNICIAN PREVENTATIVE MEDICINE [facility] Blood BLOOD SPECIMEN / Unknown 03/27/2020 1:37 PM TECHNICIAN PREVENTATIVE MEDICINE 03/27/2020 1:38 PM TECHNICIAN PREVENTATIVE MEDICINE us Adarsh Quinones MD LAB - POINT OF CARE ORDER HOLGER Final Result Performing Organization Address City/State/[place] Co de Phone Number [facility] [address] [place] [address], [facility] [phone] from Last 3 Months or Most Recently Relevant to Health Maintenance Insurance [facility] Advance Directives * Full Code (Latest Code Status on File) Date Activated Date Inactivated Comments 03/27/2020 12:49 PM 03/27/2020 7:55 PM Care Teams Pot Washer Relationship Specialty Start Date End Date Edi Geronimo DO [address] [place] [phone] PCP - General 05/24/22 Francisco Atkins MD Cardiovascular Disease 07/22/14
--- OUTSIDE RECORDS SUMMARY | 2024-06-21 00:22 | XMS_ITS | Clinical Summary ---
Author Organization [facility] Address [address] [place] [address] Phone Care Team Providers Care User Experience Analyst Name Role Phone Francisco Atkins MD Unavailable [phone] Cheryl Coello DIGITAL CONTROLS TECHNICAL OFFICER Unavailable [phone] Joni Summers MD Unavailable [phone] Cordelia Young DPM Unavailable [phone] Dylan Varela MD Unavailable Eriberto Boss MD Primary Care Provider [phone] Allergies Active Allergy Reactions Criticality Noted Date [...] insufficiency 01/31/20 16 Non-rheumatic tricuspid valve insufficiency 01/11 KARL (obstructive sleep apnea) 06/26/2013 Arthritis 06/26/2013 [...] 67 10/02/2017 8:54 AM CDT Temperature 36.5 C (97.7 F) 10/02/2017 8:54 AM CDT Respiratory Rate 20 07/08/2017 8:52 AM CDT [...] Cologuard 12/04/2007 Immunochemical Fecal Occult Blood 12/04/2007 Zoster Immunization (1 of 2) 12/04/2007 PSA Discussion 2012 SARS-COV-2 Immunization (5 - 2024-25 season) 2023 12/31/2022, 01/09/2021, 05/08/2020, Additional history exists Pneumococcal Immunization (50+ years) Completed 12/23/2022 Pneumococcal Immunization Combined Discontinued 12/23/2022 Respiratory Syncytial Virus (RSV) Immunization (Adult) Completed 12/31/2022 Influenza Immunization Completed , 12/24/2022, 11/06/2020 Hepatitis B Immunization Aged Out No longer eligible based on patient's age to complete this topic Meningococcal Immunization (ACWY) Aged Out No longer eligible based on patient's age to complete this topic Rotavirus Immunization Aged Out No lo nger eligible based on patient's age to complete this topic Care Teams User Experience Analyst Relationship Specialty Start Date End Date Eriberto Boss MD [address] [place] [address] [address] [place] [address] PCP - General Internal Medicine 07/24/20 Francisco Atkins MD [address] [facility] [address] [place] [address] Consulting Physician Cardiology 05/19/17 Cheryl Coello APRN [address] [place] [address] Nurse Practitioner Pain Medicine-Pain Management 05/19/17 Joni Summers MD [address] [place] [address] Consulting Physician Orthopaedic Sports Medicine 05/19/17 Cordelia Young DPM [address] [place] [address] Consulting Physician Podiatry 10/02/17 Dylan Varela MD [address] [place] [id number] Neurology 10/02/17
[2024-06-21 12:23] VITALS: BP 146/65; PULSE 72; RESP 20; TEMP 36.6; O2SAT 100; BMI 39.2
[2024-06-21] MEDS: LACTATED RINGERS 1,000 ML 150 ML IV CONT (12:31)
--- NOTE | 2024-06-21 12:56 | P.PNAN_ITS ---
Anes - Initial Pre Proc Eval Procedure: Operation Date: 06/21/24 13:30 Proposed Procedures p Colonoscopy - Christiano Gomez MD Date/Time: 06/21/24 12:56 Surgeon: Christiano Gomez MD Pre Op Diagnosis: Other fecal abnormalities Patient Data Age: 68 Gender: M Height: 1.73 m Weight: 116.9 kg Last Vital Signs Temp 36.6 C 06/21/24 12:23 Pulse 72 06/21/24 12:23 Resp 20 06/21/24 12:23 BP 146/65 H 06/21/24 12:23 Pulse Ox 100 06/21/24 12:23 O2 Del Method Room Air 06/21/24 12:23 Allergies Allergy/AdvReac Type Severity Reaction Status Date / Time amlodipine Allergy angioedema Verified 06/21/24 12:21 tricyclics AdvReac Intermediate Unknown Uncoded 06/21/24 12:21 Home Medications ?Medication ?Instructions ?Recorded ?Confirmed ?Type apixaban 5 mg tablet (Eliquis) 5 mg PO BID 11/06/20 06/21/24 History metoprolol succinate 25 mg 25 mg PO DAILY #90 tabs 01/16/24 06/21/24 Rx tablet,extended release 24 hr dextromethorphan IR 45 1 tablet PO QAM 03/24/24 06/21/24 History mg-bupropion ER 105 mg biphasic tablet (Auvelity) furosemide 40 mg tablet 40 mg PO QAM PRN edema #30 tabs 03/24/24 06/21/24 Rx dapagliflozin propanediol 10 mg 10 mg PO DAILY #90 tabs 03/31/24 06/21/24 Rx tablet (Farxiga) allopurinol 100 mg tablet 100 mg PO DAILY #90 tabs 05/31/24 06/21/24 Rx cholecalciferol (vitamin D3) 50 50 mcg PO DAILY #90 caps 05/31/24 06/21/24 Rx mcg (2,000 unit) capsule nifedipine 90 mg tablet,extended 90 mg PO DAILY #90 tabs 05/31/24 06/21/24 Rx release testosterone cypionate 100 mg/mL 100 mg IM ONCE 05/31/24 06/11/24 History intramuscular oil (Depo-Testosterone) tirzepatide (weight loss) 2.5 2.5 mg (0.5 mL) subcut WEEKLY #2 mL 05/31/24 06/11/24 Rx mg/0.5 mL subcutaneous pen injector (Zepbound) losartan 100 mg tablet 100 mg PO DAILY #90 tabs 06/14/24 06/21/24 Rx oxycodone-acetaminophen 10 mg-325 1 tablet PO QID PRN pain #120 tabs 06/14/24 06/21/24 Rx mg tablet Patient hx anesthesia problems: none Family hx anesthesia problems: none Results Review: All pre-operative results and documents have been reviewed as part of the pre- operative evaluation. [facility] Past Medical History Medical History Vision changes Prostate cancer screening Encounter for preventive health examination Skin change Follow up Body mass index (BMI) 40.0-44.9, adult Colon cancer screening Nocturia DJD (degenerative joint disease) of knee Kidney stones On long-term drug therapy Encounter to establish care BMI 39.0-39.9,adult Macular degeneration Restless legs syndrome (RLS) Depression Chronic pain Sleep apnea in adult Chronic atrial fibrillation Chronic CHF Gout Essential (primary) hypertension History of arthritis History of gout History of kidney stones H/O atrial fibrillation without current medication History of hypertension Surgical History Surgical History Hx of knee surgery No significant past surgical history Family History Family History Mother Chronic kidney disease Father Coronary artery disease Coronary artery disease involving bypass graft of transplanted heart Social History Social History Social History: 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 He holds 3 master's degrees. 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 Smoking status: Never smoker Second hand tobacco smoke exposure: No Alcohol intake: former Drinks per week: 2 Substance use: never Substance use type: does not use Lack of Transportation: No Lack of Food: Never True Current Housing: I Have Housing Concerned About Future Housing: No Difficulty Paying Gas/Electric Bills: No Difficulty Paying for Meds: No Currently Unemployed: No Education: Master's Degree or Higher Difficulty w/ Childcare or Family Care: No Living arrangements: with family Occupation/Education: retired Gender identity (if verbalized by the patient): Male Spiritual care concerns: No Anes - Eval Final PreProcedure Day of Procedure 06/21/24 12:56 Patient weight: morbidly obese Heart: regular rate and rhythm Lungs: clear to auscultation Airway: Mallampati scale class II Neurological: alert and oriented Last oral intake: >/= 8 hours ASA classification: III Emergent: no Anesthetic plan: proceed Anesthesia type and monitoring: general GIVS and standard monitoring Results Review: All pre-operative results and documents have been reviewed as part of the pre- operative evaluation. Informed Consent: The patient's anesthetic plan and its attendant risks and benefits were discussed with the patient/family/POA. Questions were solicited and answers provided to the satisfaction of the patient/family/POA.
--- NOTE | 2024-06-21 13:30 | P.HP_ITS ---
History of Present Illness History of Present Illness Consent: Risks, benefits, and alternatives have been discussed and questions answered. Patient agrees to proceed with procedure. Chief complaint: Other fecal abnormalities Narrative: Tremayne Garcia is a 68 year old male with + cologuard, here with first colonoscopy Review of Systems Review of Systems: All systems reviewed & are unremarkable except as noted in HPI and below PMFSH Past Medical History Medical History (Updated 06/21/24 @ 13:31 by Christiano Gomez MD) Positive colorectal cancer screening using Cologuard test Vision changes Prostate cancer screening Encounter for preventive health examination Skin change Follow up Body mass index (BMI) 40.0-44.9, adult Colon cancer screening Nocturia DJD (degenerative joint disease) of knee Kidney stones On long-term drug therapy Encounter to establish care BMI 39.0-39.9,adult Macular degeneration Restless legs syndrome (RLS) Depression Chronic pain Sleep apnea in adult Chronic atrial fibrillation Chronic CHF Gout Essential (primary) hypertension History of arthritis History of gout History of kidney stones H/O atrial fibrillation without current medication History of hypertension Surgical History Surgical History Hx of knee surgery No significant past surgical history Family History Family History Mother Chronic kidney disease Father Coronary artery disease Coronary artery disease involving bypass graft of transplanted heart Social History Social History Social History: 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 He holds 3 master's degrees. 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 Smoking status: Never smoker Second hand tobacco smoke exposure: No Alcohol intake: former Drinks per week: 2 Substance use: never Substance use type: does not use Lack of Transportation: No Lack of Food: Never True Current Housing: I Have Housing Concerned About Future Housing: No Difficulty Paying Gas/Electric Bills: No Difficulty Paying for Meds: No Currently Unemployed: No Education: Master's Degree or Higher Difficulty w/ Childcare or Family Care: No Living arrangements: with family Occupation/Education: retired Gender identity (if verbalized by the patient): Male Spiritual care concerns: No Meds Home Medications and Allergies Home Medications ?Medication ?Instructions ?Recorded ?Confirmed ?Type apixaban 5 mg tablet (Eliquis) 5 mg PO BID 11/06/20 06/21/24 History metoprolol succinate 25 mg 25 mg PO DAILY #90 tabs 01/16/24 06/21/24 Rx tablet,extended release 24 hr dextromethorphan IR 45 1 tablet PO QAM 03/24/24 06/21/24 History mg-bupropion ER 105 mg biphasic tablet (Auvelity) furosemide 40 mg tablet 40 mg PO QAM PRN edema #30 tabs 03/24/24 06/21/24 Rx dapagliflozin propanediol 10 mg 10 mg PO DAILY #90 tabs 03/31/24 06/21/24 Rx tablet (Farxiga) allopurinol 100 mg tablet 100 mg PO DAILY #90 tabs 05/31/24 06/21/24 Rx cholecalciferol (vitamin D3) 50 50 mcg PO DAILY #90 caps 05/31/24 06/21/24 Rx mcg (2,000 unit) capsule nifedipine 90 mg tablet,extended 90 mg PO DAILY #90 tabs 05/31/24 06/21/24 Rx release testosterone cypionate 100 mg/mL 100 mg IM ONCE 05/31/24 06/11/24 History intramuscular oil (Depo-Testosterone) tirzepatide (weight loss) 2.5 2.5 mg (0.5 mL) subcut WEEKLY #2 mL 05/31/24 06/11/24 Rx mg/0.5 mL subcutaneous pen injector (Zepbound) losartan 100 mg tablet 100 mg PO DAILY #90 tabs 06/14/24 06/21/24 Rx oxycodone-acetaminophen 10 mg-325 1 tablet PO QID PRN pain #120 tabs 06/14/24 06/21/24 Rx mg tablet Allergies Allergy/AdvReac Type Severity Reaction Status Date / Time amlodipine Allergy angioedema Verified 06/21/24 12:21 tricyclics AdvReac Intermediate Unknown Uncoded 06/21/24 12:21 Vital Signs Vital Signs - 24 hr 06/21/24 12:23 Temperature 97.9 F Pulse Rate 72 Respiratory Rate 20 Blood Pressure 146/65 H Pulse Oximetry 100 Oxygen Delivery Room Air Exam Const: General: comfortable and no acute distress HENMT: Face/Nose/Sinus: Normal nares present Eyes: General: appearance normal, both eyes and all related structures Neck: Neck: no JVD Resp: Auscultation: clear to auscultation bilaterally Cardio: Rate: regular rate Rhythm: regular rhythm GI: Inspection: non-distended GI Palp: Yes Soft to palpation Neuro: Speech: normal speech Extrem: General: normal to inspection Psych: Mental Status: mental status grossly normal Assessment and Plan Assessment and plan (1) Positive colorectal cancer screening using Cologuard test: Code(s): R19.5 - Other fecal abnormalities Status: Acute Assessment and Plan: colonoscopy
[2024-06-21 13:45] VITALS: BP 86/59; PULSE 68; RESP 20; O2SAT 95
[2024-06-21 13:55] VITALS: BP 122/56; PULSE 63; RESP 17; O2SAT 95
[2024-06-21 14:09] VITALS: BP 130/57; PULSE 60; RESP 19; O2SAT 96
== END 2024-06-21 14:15 | disposition home or self-care (01) ==
PROVIDERS: PCP Internal Medicine; Referring Provider Internal Medicine; Visit Provider Internal Medicine Gastroenterology
PROC: 0DJD8ZZ Inspection of Lower Intestinal Tract, Via Natural or Artificial Opening Endoscopic (ICD-10-PCS; CPT 45378; principal; 2024-06-21 13:30)
DX: R19.5 Other fecal abnormalities (principal); K57.30 Diverticulosis of large intestine without perforation or abscess without bleeding; E66.01 Morbid (severe) obesity due to excess calories; Z68.39 Body mass index [BMI] 39.0-39.9, adult
CPT/HCPCS: 45378; J2003; J2704; J7120

== ENCOUNTER 2024-08-26 14:13 | Outpatient (CLI) | payer OTHER, SELFPAY ==
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
[2024-08-26 14:54] LABS: Hematocrit 44.9 % (42.0-52.0); Hemoglobin 14.8 g/dL (14.0-18.0); Immature Granulocyte Percent A 0.4 % (0-0.5); Lymphocytes Absolute Auto 1.17 K/mm3 (0.9-3.2); Mean Corpuscular HGB Conc 33.0 g/dl (32-36); Mean Corpuscular Hemoglobin 30.9 pg (26-34); Mean Corpuscular Volume 93.7 fl (80-100); Nucleated Red Blood Cells Absolute Auto 0.000 K/mm3 (0.0-0.012); Nucleated Red Blood Cells Perc 0.0 % (0.0-0.2); Platelet Count Result 150 k/mm3 (150-375); Red Blood Count 4.79 M/mm3 (4.6-6.20); White Blood Count 7.1 K/mm3 (4.5-10.0)
[2024-08-26 15:13] LABS: Alanine Aminotransferase 24 U/L (6-50); Albumin Level 4.1 g/dL (3.5-5.1); Alkaline Phosphatase 104 U/L (38-126); Anion Gap 6 mmol/L (4-12); Aspartate Amino Transferase 27 U/L (17-59); Bilirubin,Total 0.6 mg/dL (0.2-1.3); Blood Urea Nitrogen 28 mg/dL (9-20); Calcium 9.4 mg/dL (8.4-10.2); Carbon Dioxide 23 mmol/L (22-30); Chloride 108 mmol/L (98-107); Cholesterol 185 mg/dL (0-200); Estimated Glomerular Filt Rate 52; Glucose 128 mg/dL (65-110); HDL Direct 46 mg/dL; Potassium 4.8 mmol/L (3.4-5.0); Sodium 137 mmol/L (137-145); Total Protein 7.5 g/dL (6.3-8.2); Triglycerides 395 mg/dL (<150)
[2024-08-26 15:14] LABS: Add Urine Microscopic? YES; Appearance Urine Clear (Clear); Glucose Urine UA Trace mg/dL (Negative); Leukocyte Esterase Ur Negative LEU/UL (Negative); Nitrate Urine Negative (Negative); Non Pathogenic Casts 0-2; Specific Grav Ur 1.016 (1.001-1.035)
[2024-08-26 15:42] LABS: Free T4 Free Thyroxine 0.92 ng/dL (0.78-2.19)
[2024-08-26 15:48] LABS: Thyroid Stimulating Hormone 0.920 uIU/mL (0.465-4.680)
[2024-08-26 21:37] LABS: Hemoglobin A1C 5.7 % (<5.7)
== END 2024-08-26 14:14 | disposition home or self-care (01) ==
PROVIDERS: PCP Internal Medicine; Visit Provider Internal Medicine
DX: S09.90XA Unspecified injury of head, initial encounter (principal); S19.9XXA Unspecified injury of neck, initial encounter; T75.00XA Unspecified effects of lightning, initial encounter; Z79.01 Long term (current) use of anticoagulants; Z79.899 Other long term (current) drug therapy; Z13.29 Encounter for screening for other suspected endocrine disorder; Z13.220 Encounter for screening for lipoid disorders; I10 Essential (primary) hypertension; R73.03 Prediabetes
CPT/HCPCS: 36415; 70450; 72125; 80053; 80061; 81001; 83036; 84439; 84443; 85025